=== PATIENT | female | born 1945 | race Two or more races ===

== ENCOUNTER 2020-11-30 11:41 | Outpatient (REF) | payer MEDICARE, SELFPAY ==
--- NOTE | ~2020-11-30 | MM_ITS ---
EXAMINATION: MM SCREENING DIGITAL BREAST TOMOSYNTHESIS, BILATERAL CLINICAL INFORMATION: Screening. Asymptomatic. The lifetime risk of breast cancer based on the Tyrer-Cuzick Model is 3%. COMPARISON: Mammography: 06/16/2019, 05/28/2018, 03/28/2017 TECHNIQUE: Digital breast tomosynthesis is performed in both the craniocaudal and mediolateral oblique views along with computer-aided detection (CAD). Synthesized 2D images are generated from the tomosynthesis. FINDINGS: The breasts are almost entirely fatty (ACR BI-RADS breast composition Category a). There are no significant masses, abnormal calcifications, or other abnormalities. Background fibroglandular and stromal densities are stable. The axilla and skin contours are unremarkable. MM/MM tomosynthesis screening BI IMPRESSION: No mammographic evidence of malignancy. ASSESSMENT: BI-RADS 1: Negative RECOMMENDATION: Routine annual mammography screening. This patient's information was entered into a reminder system with a target due date for their next mammogram.
== END 2020-11-30 11:42 | disposition home or self-care (01) ==
LOC: HO.MAMMO 11:41
PROVIDERS: PCP Internal Medicine; Visit Provider Internal Medicine
DX: Z12.31 Encounter for screening mammogram for malignant neoplasm of breast (principal)
CPT/HCPCS: 77063; 77067

== ENCOUNTER 2021-01-20 08:14 | Outpatient (REF) | payer MEDICARE, SELFPAY ==
[2021-01-20 08:50] LABS: COVID-19 Test Negative (Negative)
== END 2021-01-20 08:15 | disposition home or self-care (01) ==
LOC: HO.LAB 08:14
PROVIDERS: Visit Provider Internal Medicine
DX: Z20.822 Contact with and (suspected) exposure to COVID-19 (principal)
CPT/HCPCS: 36415; 87635; C9803

== ENCOUNTER 2021-01-26 10:24 | Outpatient (REF) | payer MEDICARE, SELFPAY ==
--- NOTE | ~2021-01-26 | US_ITS ---
EXAMINATION: US RETROPERITONEAL LIMITED (RENAL ONLY) CLINICAL INFORMATION: Renal calculi. COMPARISON: Ultrasound renals 01/13/2020 and 01/07/2019. X-ray KUB 10/02/2012. CT abdomen 08/21/2008. TECHNIQUE: Real-time imaging of the kidneys. FINDINGS: RIGHT KIDNEY: 11.0 x 3.6 x 3.2 cm (SAG x AP x TRV). The kidney is normal in size, contour, and echogenicity. Renal cortical thickness is normal. No calculi or focal parenchymal lesions. No hydronephrosis. LEFT KIDNEY: 10.9 x 4.8 x 4.2 cm (SAG x AP x TRV). The kidney is normal in size, contour, and echogenicity. Renal cortical thickness is normal. No calculi or focal parenchymal lesions. No hydronephrosis. US/US renal BI IMPRESSION: Unremarkable exam. No stone seen.
== END 2021-01-26 10:25 | disposition home or self-care (01) ==
LOC: HO.US 10:24
PROVIDERS: PCP Internal Medicine; Visit Provider Urology
DX: Z87.442 Personal history of urinary calculi (principal)
CPT/HCPCS: 76775

== ENCOUNTER → 2021-02-11 08:42 | Outpatient (BNVA) | payer MEDICARE, SELFPAY | PROVIDERS: PCP Internal Medicine; Visit Provider Urology | DX: Z13.89 Encounter for screening for other disorder (principal) | CPT/HCPCS: 99212 ==

== ENCOUNTER 2021-05-24 11:17 | Outpatient (REF) | payer MEDICARE, SELFPAY ==
[2021-05-24 12:24] LABS: MANUAL DIFF FLAG NO
[2021-05-24 12:34] LABS: Basophils Percent Auto 0.3 % (0-2); Eosinophils Absolute Auto 0.3 X10*3/uL (0.0-0.4); Eosinophils Percent Auto 4.5 % (0-4); Hemoglobin 12.8 g/dl (12.0-16.0); Imm Gran Pct Auto 1.3 % (0.0-0.4); Lymphocytes Absolute Auto 1.3 X10*3/uL (1.2-4.9); Mean Corpuscular HGB Conc 32.8 g/dl (31.0-35.0); Mean Corpuscular Hemoglobin 29.3 pg (27.0-33.0); Mean Corpuscular Volume 89.2 fL (80-98); Mean Platelet Volume 9.2 fL (9.4-12.3); Monocytes Absolute Auto 0.5 X10*3/uL (0.1-1.2); Monocytes Percent Auto 6.4 % (2-11); Neutrophils Absolute Auto 5.3 X10*3/uL (2.0-8.3); Neutrophils Percent Auto 70.5 % (45-73); Platelet Count 230 X10*3/uL (160-400); Red Blood Count 4.37 X10*6/uL (4.20-5.50); Red Cell Distribution Width 13.2 % (11.0-16.0); White Blood Count 7.6 X10*3/uL (4.8-10.8)
[2021-05-24 12:42] LABS: Alanine Aminotransferase 26 U/L (0-31); Albumin Level 4.1 g/dL (3.5-5.0); Alkaline Phosphatase 69 U/L (39-117); Anion Gap 13 (12-20); Aspartate Amino Transferase 16 U/L (5-31); Bilirubin Total 0.5 mg/dL (0.0-1.0); Blood Urea Nitrogen 17 mg/dL (9-16); Calcium 9.6 mg/dL (8.4-10.2); Carbon Dioxide 29 mmol/L (22-29); Chloride 103 mmol/L (96-108); Cholesterol 242 mg/dL; Estimated Glomerular Filt Rate > 60; Glucose Random 106 mg/dL (60-115); HDL Cholesterol 68 mg/dL; LDL Cholesterol Calculated 120 mg/dl; Potassium 4.6 mmol/L (3.3-5.1); Sodium 140 mmol/L (135-145); Total Protein 6.6 g/dL (6.5-8.0); Triglycerides 274 mg/dL
[2021-05-24 13:06] LABS: Free T4 (Free Thyroxine) 0.97 ng/dL (0.71-1.85); Thyroid Stimulating Hormone 0.76 uIU/mL (0.32-4.0); Vitamin D 25-OH Total 43.7 ng/mL (>30)
[2021-05-24 13:15] LABS: Folate 14.3 ng/mL (> or = 4.0); Vitamin B12 849 pg/mL (200-900)
[2021-05-24 13:33] LABS: Estimated Average Glucose 131 mg/dL; Hemoglobin A1c % 6.2 %
== END 2021-05-24 11:18 | disposition home or self-care (01) ==
LOC: HO.LAB 11:17
PROVIDERS: PCP Internal Medicine; Visit Provider Internal Medicine
DX: E78.00 Pure hypercholesterolemia, unspecified (principal); R73.01 Impaired fasting glucose; I10 Essential (primary) hypertension
CPT/HCPCS: 36415; 80053; 80061; 82306; 82607; 82746; 83036; 84439; 84443; 85025

== ENCOUNTER 2021-07-06 09:51 | Outpatient (REF) | payer MEDICARE, SELFPAY ==
--- NOTE | ~2021-07-06 | MM_ITS ---
EXAMINATION: BONE DENSITOMETRY CLINICAL INDICATION: Other specified disorders of bone density and structure. COMPARISON: Previous BD dated 04/17/2017 and baseline BD dated 09/14/2005. TECHNIQUE: Using a [employer] DXA System (software version: 13.1) manufactured by [employer], dual-energy x-ray absorptiometry was performed of the lumbar spine and left hip. The images are of good technical quality. Summary results are attached. FINDINGS: AP SPINE L1-L4: Current: BMD 1.086 g/cm2, Z-score 0.2, T-score -0.8, normal, 11.7% increase from previous, 7.4% increase from baseline (<5% change is not significant). Prior: BMD 0.972 g/cm2. Baseline: BMD 1.011 g/cm2. LEFT FEMUR, NECK: Current: BMD 0.797 g/cm2, Z-score -0.3, T-score -1.7, osteopenia. Prior: BMD 0.762 g/cm2. Baseline: BMD 0.830 g/cm2. LEFT FEMUR, TOTAL: Current: BMD 0.908 g/cm2, Z-score 0.4, T-score -0.8, normal, 1.5% increase from previous, 3.1% decrease from baseline (<5% change is not significant). Prior: BMD 0.895 g/cm2. Baseline: BMD 0.937 g/cm2. IDENTIFIED RISK FACTORS: Menopause, family history (parental hip fracture). HISTORY OF FRACTURE: None listed. MEDICATIONS: Calcium supplements or multivitamin, vitamin D, bisphosphonates. MM/XR DEXA axial skeleton IMPRESSION: 1. DIAGNOSIS: Osteopenia based on the lowest T-score value of -1.7 in the femoral neck applying World Health Organization criteria. 2. 10-YEAR FRACTURE RISK PREDICTION, FRAX: Major osteoporotic fracture (clinical spine, forearm, hip or shoulder) 10.8%. Hip fracture 5.2%. 3. Treatment Recommendations: NOF guidelines recommend consideration for treatment in postmenopausal women and men age 50 and older presenting with the following: -A hip or vertebral (clinical or morphometric) fracture. -T-score less than or equal to -2.5 at the femoral neck or spine after appropriate evaluation to exclude secondary causes. -Low bone mass at the hip or spine and a 10-year fracture probability by FRAX of greater than or equal to 3% for hip fracture or greater than or equal to 20% for major osteoporotic fracture based on the [place] adapted WHO algorithm. 4. Other Recommendations: All treatment decisions require clinical judgment and consideration of individual patient factors, including patient preferences, comorbidities, previous drug use, risk factors not captured in the FRAX model (e.g. frailty, falls, vitamin D deficiency, increased bone turnover, interval significant decline in bone density) and possible under or overestimation of fracture risk by FRAX. Additional medical evaluation for secondary cause of low bone mineral density may be appropriate. FUTURE SCAN RECOMMENDATION: People with diagnosed cases of osteoporosis or at high risk for fracture should have regular bone mineral density tests. For patients eligible for Medicare, routine testing is allowed once every 2 years. The testing frequency can be increased to one year for patients who have rapidly progressing disease, those who are receiving or discontinuing medical therapy to restore bone mass, or have additional risk factors.
--- NOTE | ~2021-07-06 | XR_ITS ---
EXAMINATION: XR SHOULDER, RIGHT CLINICAL INFORMATION: Right shoulder pain COMPARISON: Radiographs 04/21/2020 TECHNIQUE: AP external rotation, Grashey, scapular Y, and axillary views of the right shoulder. FINDINGS: Small osteophyte at the inferomedial humeral head and neck junction and minimal degenerative spurring along the greater tuberosity. The humeral head appears slightly subluxed. No Fracture. Subacromial spurring. Mild acromioclavicular osteoarthritis. XR/XR shoulder RT min 2V IMPRESSION: Degenerative changes as described with slight superior subluxation of the humeral head which may indicate a rotator cuff tear. This could be further evaluated with MRI if indicated.
== END 2021-07-06 09:52 | disposition home or self-care (01) ==
LOC: HO.MAMMO 09:51
PROVIDERS: PCP Internal Medicine; Visit Provider Internal Medicine
DX: Z13.820 Encounter for screening for osteoporosis (principal); M85.80 Other specified disorders of bone density and structure, unspecified site; M25.511 Pain in right shoulder; Z78.0 Asymptomatic menopausal state; Z87.81 Personal history of (healed) traumatic fracture; Z79.899 Other long term (current) drug therapy
CPT/HCPCS: 73030; 77080

== ENCOUNTER 2021-07-12 16:28 | Emergency (ER) | payer MEDICARE, SELFPAY ==
[2021-07-12 16:44] VITALS: BP 137/58; PULSE 79; RESP 16; TEMP 36.1; O2SAT 97; BMI 35.3
--- NOTE | 2021-07-12 17:04 | ED_ITS ---
HPI - Skin/Abscess/Foreign Bdy General Chief complaint: Skin/Abscess/Foreign Body Stated complaint: rash for approx 3 months Time Seen by Provider: 07/12/21 16:51 Source: patient Mode of arrival: ambulatory Limitations: language barrier ([place]izen [place]-speaking) History of Present Illness HPI narrative: 76-year-old Female presenting to the ED with complaints of itchy rash on her arms/back and lower extremities since February. She reports she has been seen multiple times for this by multiple different providers including a wide area network engineer in already completed 2-3 courses of p.o. prednisone, she has also been prescribed topical antifungal and topical steroids and no improvement per the patient. She is also taking sertraline and hydroxyzine and no symptomatic relief. She reports that her symptoms are worse at night. She reports that she lives with her son he does not have this similar rash. She reports this is not bedbugs that she cleaned her bed with even Lysol. She reports she even had this when she was in [place] for 3 weeks and no one else had it. She reports she no longer wants to take any p.o. steroids because they made her face swell. She denies any new substances such as medications, shampoos, lotions, body washes, foods or even detergents. She denies any pets in her home. She denies any other symptoms complaints or concerns at this time. complaint: rash Onset (ago): month(s) Tetanus up to date: unsure Location: back, LUE, RUE, LLE and RLE Severity: severe Quality: constant and pruritic Pain Consistency: constant Relieving factors: none Exacerbating factors: other (At nighttime) Context: none Associated symptoms: denies other symptoms Treatments prior to arrival: other (See above) Related Data Home Medications Medication Instructions Recorded Confirmed amitriptyline 50 mg tablet 50 mg PO BEDTIME 07/26/20 05/20/21 citalopram 20 mg tablet 20 mg PO DAILY 02/11/21 05/20/21 clonazepam 1 mg tablet 1 mg PO BID PRN 02/11/21 05/20/21 Previous Rx's Medication Instructions Recorded compress.stocking,knee,reg,lrg #2 ea 07/26/20 Poise PAds [id number] #180 ea 11/18/20 gabapentin 300 mg capsule 300 mg PO BID #60 cap 11/26/20 cholecalciferol (vitamin D3) 125 125 mcg PO DAILY #30 tab 12/02/20 mcg (5,000 unit) tablet (Vitamin D3) alendronate 70 mg tablet 70 mg PO QWEEK #12 tab 12/22/20 lisinopril 20 mg tablet 20 mg PO DAILY #90 tab 12/22/20 rosuvastatin 20 mg tablet 20 mg PO DAILY #90 tab 12/22/20 cyanocobalamin (vitamin B-12) 1,000 mcg PO DAILY 90 Days #90 tab 02/11/21 1,000 mcg tablet hydroxyzine HCl 25 mg tablet 25 mg PO TID PRN 10 Days #30 tab 04/15/21 triamcinolone acetonide 0.1 % 1 appl TOPICAL DAILY PRN #80 g 04/15/21 topical cream diphenhydramine HCl 25 mg capsule 25 mg PO TID PRN 15 Days #45 cap 06/02/21 (Benadryl) acetaminophen 650 mg 650 mg PO Q8H 30 Days #90 tab 06/13/21 tablet,extended release (Tylenol Arthritis Pain) cephalexin 500 mg capsule 500 mg PO Q6H 10 Days #40 cap 07/12/21 doxycycline monohydrate 100 mg 100 mg PO BID 10 Days #20 cap 07/12/21 capsule hydroxyzine HCl 50 mg tablet 50 mg PO Q8H PRN #30 tab 07/12/21 mupirocin 2 % topical ointment 1 appl TOPICAL TID #22 g 07/12/21 Allergies Allergy/AdvReac Type Severity Reaction Status Date / Time Penicillins [PENICILLINS] Allergy Unknown RASH,ITCHY Verified 05/20/21 09:58 Review of Systems Review of Systems: Constitutional : No Fever, No Chills , no body aches, no recent illness Head/Face: No facial swelling, No facial redness ENT/Mouth : No oral/throat swelling, No Hoarseness, No Swallowing Difficulty Eyes: No Eye Pain, No Swelling, No Redness Cardiovascular : No Chest Pain, No SOB, No palpitations Respiratory : No Cough, No Sputum, No Wheezing, No Smoke Exposure, No Dyspnea Gastrointestinal : No Nausea, No Vomiting, No Diarrhea, No abdominal Pain Genitourinary : No Dysuria, No Urinary Frequency, No Hematuria Musculoskeletal : No joint pain, No Myalgias, No Joint Swelling Skin : No Skin Lesions, positive rash Neuro : No Weakness, No Numbness, No Headache, No dizziness, No tingling Psych : No Anxiety/Panic, No Depression Heme/Lymph: No Bruising, No Lymphadenopathy Endocrine : No Polyuria, No Polydipsia Denies changes in lotions or detergents. Denies new medications or any changes in medications. Denies drainage from rash. Denies any recent sick contacts or recent travel. Yes all other systems are reviewed and are negative [facility] Past Medical History Attestation statement: The following information was validated with the patient. Medical History Anxiety and depression Carpal tunnel syndrome Cataract Fibromyalgia GERD (gastroesophageal reflux disease) Gout History of renal calculi Hypercholesterolemia Hypertension Impaired fasting glucose Migraine Obesity (BMI 30-39.9) Osteoarthritis, knee Osteoporosis Peripheral vascular disease Rash Seborrheic dermatitis of scalp Surgical History History of carpal tunnel release History of cataract surgery Family History Family History Father CVD (cardiovascular disease) Stroke Mother Diabetes Hypertension Maternal Aunt Breast cancer Brother Intestinal cancer Social History Social History Housing: Apartment Alcohol intake: never Patient Tobacco Use Status: Never used Tobacco e-Cigarette/Vaping Use: Never Used Second Hand Smoke Exposure: No Advance Directives: No Advance Directives Information Provided: Yes service: No Current occupational status: disabled Physical Exam Vital Signs: Vital Signs: Last Vital Signs Temp 97.0 F 07/12/21 16:44 Pulse 79 07/12/21 16:44 Resp 16 07/12/21 16:44 BP 137/58 L 07/12/21 16:44 Pulse Ox 97 07/12/21 16:44 Body Mass Index 35.3 vital signs have been reviewed as normal and appeared to be correct. Blood pressure normal. Heart rate normal. Respiration rate normal. Temperature normal. Oxygen saturation normal. Appearance: Alert. Oriented X3. No acute distress. Head: Normal external exam. Normocephalic. Eyes: PERRLA. EOMI. Conjunctiva and sclera normal. Eyelids normal. ENT: Pharynx normal. Uvula midline. Moist mucous membranes. No trismus noted. No drooling noted. No muffled voice noted. Neck: Normal inspection. Neck supple. FROM. No adenopathy. No meningeal signs. CVS: Normal heart rate and rhythm. Heart sound normal. No murmurs noted. Pulses normal throughout. Respiratory: No respiratory distress. Painless inspiration. Breath sounds normal. No wheezes/rales/rhonchi noted. Chest nontender. No accessory muscle usage noted or decreased air movement noted. Abdomen: Soft and nontender. Nondistended. No guarding. No rigidity. Bowel sounds normal in all 4 quadrants. No distention noted. No organomegaly noted. No visible injury noted. No rebound tenderness. Negative Rovsing sign. N egative obturator's sign. Negative psoas sign. Negative Arias sign. Back: No CVA tenderness. Full range of motion noted. Skin: Skin warm and dry. Normal skin color. Normal skin turgor. Patient noted to have macular papular inflammatory pustules/papules on the bilateral arms/back and lower extremities which appears like it started like a contact dermatitis but now appears like a folliculitis. No lacerations noted. Extremities: Extremities exhibit normal range of motion. Extremities nontender. Neuro: Oriented X 3. No motor deficit. No sensory deficit. Reflexes normal. Normal steady gait. Course Course Course Narrative: 76-year-old Female presenting to the ED with complaints of itchy rash on her arms/back and lower extremities since February. She reports she has been seen multiple times for this by multiple different providers including a wide area network engineer in already completed 2-3 courses of p.o. prednisone, she has also been prescribed topical antifungal and topical steroids and no improvement per the patient. She is also taking sertraline and hydroxyzine and no symptomatic relief. She reports that her symptoms are worse at night. She reports that she lives with her son he does not have this similar rash. She reports this is not bedbugs that she cleaned her bed with even Lysol. She reports she even had this when she was in [place] for 3 weeks and no one else had it. She reports she no longer wants to take any p.o. steroids because they made her face swell. She denies any new substances such as medications, shampoos, lotions, body washes, foods or even detergents. She denies any pets in her home. She denies any other symptoms complaints or concerns at this time. On exam it appears that the patient started with a contact dermatitis and it now appears to be superimposed with folliculitis due to the patient's scratching so much. I explained to her that I will try mupirocin and p.o. antibiotics to treat for possible folliculitis. Will also DC home with Atarax and instructions return if any new or worsening symptoms to follow up with PCP/wide area network engineer. Patient understands and agrees with this plan. MDM - Skin/Abscess/Foreign Bdy Medical Records Attestation: I reviewed the patient's medical records. Discharge Plan Discharge Clinical Impression: Contact dermatitis, Folliculitis Patient Disposition: Home, Self-Care Instructions: Contact Dermatitis (ED), Folliculitis (ED) Prescriptions: New mupirocin 2 % ointment 1 appl topical TID Qty: 22 RF: 3 doxycycline monohydrate 100 mg capsule 100 mg PO BID 10 Days Qty: 20 RF: 0 cephalexin 500 mg capsule 500 mg PO Q6H 10 Days Qty: 40 RF: 0 hydroxyzine HCl 50 mg tablet 50 mg PO Q8H PRN (Reason: itching) Qty: 30 RF: 0 No Action gabapentin 300 mg capsule 300 mg PO BID Qty: 60 RF: 5 cholecalciferol (vitamin D3) [Vitamin D3] 125 mcg (5,000 unit) tablet 125 mcg PO DAILY Qty: 30 RF: 11 lisinopril 20 mg tablet 20 mg PO DAILY Qty: 90 RF: 2 rosuvastatin 20 mg tablet 20 mg PO DAILY Qty: 90 RF: 2 alendronate 70 mg tablet 70 mg PO QWEEK Qty: 12 RF: 2 cyanocobalamin (vitamin B-12) 1,000 mcg tablet 1,000 mcg PO DAILY 90 Days Qty: 90 RF: 2 diphenhydramine HCl [Benadryl] 25 mg capsule 25 mg PO TID PRN (Reason: allergy symptoms) 15 Days Qty: 45 RF: 1 acetaminophen [Tylenol Arthritis Pain] 650 mg tablet extended release 650 mg PO Q8H 30 Days Qty: 90 RF: 2 amitriptyline 50 mg tablet 50 mg PO BEDTIME RF: 0 (DME) compress.stocking,knee,reg,lrg Misc See Rx Instructions .ROUTE .MEDSUPPLY Qty: 2 RF: 0 (DME) Poise PAds [id number] See Rx Instructions .Route .MEDSUPPLY Qty: 180 RF: 3 hydroxyzine HCl 25 mg tablet 25 mg PO TID PRN (Reason: itching) 10 Days Qty: 30 RF: 0 triamcinolone acetonide 0.1 % cream 1 appl topical DAILY PRN (Reason: itching) Qty: 80 RF: 0 citalopram 20 mg tablet 20 mg PO DAILY RF: 0 clonazepam 1 mg tablet 1 mg PO BID PRNRF: 0 Referrals: Po,Fiorella Farmer MD [Physician] - 2 days Print Language: Citizen [place]
== END 2021-07-12 17:58 | disposition home or self-care (01) ==
PROVIDERS: Emergency Provider Internal Medicine
DX: L25.9 Unspecified contact dermatitis, unspecified cause (principal); L73.9 Follicular disorder, unspecified; I10 Essential (primary) hypertension; E78.00 Pure hypercholesterolemia, unspecified
CPT/HCPCS: 99283

== ENCOUNTER 2021-09-20 08:14 | Outpatient (REF) | payer MEDICARE, SELFPAY | END 2021-09-20 08:15 | disposition home or self-care (01) | LOC: HO.HMGCLDS 08:14 | PROVIDERS: Visit Provider Internal Medicine | DX: Z20.822 Contact with and (suspected) exposure to COVID-19 (principal) | CPT/HCPCS: C9803; U0003; U0005 ==

== ENCOUNTER → 2021-10-13 10:51 | Outpatient (BNVA) | payer MEDICARE, SELFPAY | PROVIDERS: PCP Internal Medicine; Visit Provider Physician Assistant | DX: M12.811 Other specific arthropathies, not elsewhere classified, right shoulder (principal); M12.812 Other specific arthropathies, not elsewhere classified, left shoulder | CPT/HCPCS: 99202 ==

== ENCOUNTER 2021-11-04 10:00 | Outpatient (RCR) | payer MEDICARE, SELFPAY ==
[2021-09-30 11:08] VITALS: BP 161/74; PULSE 75
--- NOTE | 2021-09-30 11:59 | MHC.PT.EP ---
[facility] [place] Office [place] Office [place] [facility] [address] [phone] F: [phone] F: [phone] F: [phone] F: [phone] Physical Therapy Plan of Care Date of Evaluation: Date of Surgery: NA Diagnosis: Unspecified subluxation of R shoulder joint, initial encounter Assessment: Trina is a 76 year old female who is referred to PT for Unspecified subluxation of R shoulder, initial encounter . Pt reports of having insidious onset of shoulder pain about a year back. She denies any trauma or falls. On PT examination she presents with TTP over B shoulder joint line, 8/10 pain in R shoulder with movements, decreased shoulder ROM, altered GH rhythm, decreased shoulder and scap muscle strength, and altered posture. Due to these impairments she has difficulty with ADLS requiring her to reach over head and sleeping on R side. Her daughter who is her MEDICAL BILL PROCESSOR is currently assisting her with ADLS. She would benefit from skilled PT to address the aforementioned impairments and improve tolerance to functional activities. Frequency and Duration: The patient will be seen 2/week for 5 weeks Short Term Goals: 1. Pt will have 50% decrease in pain which will enable her to sleep through the night in 2 weeks. 2. Pt will be able to move her shoulder to 90 degrees of flexion and abduction with a pain no more than 2/10 which will enable her to dress her upper body independently in 3 weeks. Snf Goals: 1. Pt will demonstrate an increase in muscle strength by 1 grade which will enable her to carrying grocery in 4 weeks. 2. Pt will be independent with HEP for symptom management and maintenance following d/c in 5 weeks. Treatment Plan: Modalities to reduce pain, spasms and effusion. Manual therapy to restore motion and function. Therapeutic exercise to improve strength and flexibility. Neuromuscular re-education for posture and balance. Therapeutic activities to return to functional activities of daily living. Electronically signed by: Chetna Paez PT DPT Please sign and return to therapist. Thank you for your referral.
== END 2021-11-04 10:42 | disposition home or self-care (01) ==
LOC: HO.PT 10:00
PROVIDERS: PCP Internal Medicine; Visit Provider Internal Medicine
DX: S43.001D Unspecified subluxation of right shoulder joint, subsequent encounter (principal)
CPT/HCPCS: 97110; 97150; 97162; 97530

== ENCOUNTER 2021-11-15 09:52 | Outpatient (REF) | payer MEDICARE, SELFPAY ==
[2021-11-15 11:11] LABS: Alanine Aminotransferase 17 U/L (0-31); Albumin Level 4.3 g/dL (3.5-5.0); Alkaline Phosphatase 66 U/L (39-117); Anion Gap 12 (12-20); Aspartate Amino Transferase 18 U/L (5-31); Bilirubin Total 0.4 mg/dL (0.0-1.0); Blood Urea Nitrogen 24 mg/dL (9-16); Calcium 9.9 mg/dL (8.4-10.2); Carbon Dioxide 30 mmol/L (22-29); Chloride 104 mmol/L (96-108); Cholesterol 193 mg/dL; Estimated Glomerular Filt Rate 55; Glucose Random 118 mg/dL (60-115); HDL Cholesterol 63 mg/dL; LDL Cholesterol Calculated 102 mg/dl; Potassium 4.6 mmol/L (3.3-5.1); Sodium 141 mmol/L (135-145); Total Protein 7.1 g/dL (6.5-8.0); Triglycerides 141 mg/dL
[2021-11-15 11:16] LABS: Estimated Average Glucose 128 mg/dL; Hemoglobin A1c % 6.1 %
== END 2021-11-15 09:53 | disposition home or self-care (01) ==
LOC: HO.LAB 09:52
PROVIDERS: PCP Internal Medicine; Visit Provider Internal Medicine
DX: E78.00 Pure hypercholesterolemia, unspecified (principal); R73.01 Impaired fasting glucose
CPT/HCPCS: 36415; 80053; 80061; 83036

== ENCOUNTER 2021-11-24 09:32 | Outpatient (REF) | payer MEDICARE, SELFPAY ==
--- NOTE | ~2021-11-24 | MR_ITS ---
EXAMINATION: MR SHOULDER WITHOUT CONTRAST, RIGHT CLINICAL INFORMATION: Right shoulder pain and decreased range of motion. COMPARISON: Most recent right shoulder radiographs dated 07/06/2021. TECHNIQUE: MRI of the shoulder without contrast was performed on a high-field scanner. FINDINGS: Evaluation is limited secondary to patient motion. ROTATOR CUFF: Complete full-thickness tears of the supraspinatus and infraspinatus tendons with retraction of the tendon fibers proximal to the glenohumeral articulation. Severe subscapularis tendinosis with near-complete full-thickness tearing measuring over 3 cm in ML dimension with a few bursal surface tendon fibers remaining intact. The teres minor tendon is intact. Moderate supraspinatus, infraspinatus, and teres minor muscle atrophy. BICEPS: Severe thickening and abnormal signal throughout the proximal long head biceps tendon with flattening and medial subluxation as it drapes over the lesser tuberosity, consistent with severe tendinosis and longitudinal partial tearing. CORACOACROMIAL ARCH: The undersurface of the acromion is curved and attenuated with bony remodeling consistent with chronic superior humeral head subluxation. Moderate acromioclavicular osteoarthritis. LABRUM/CAPSULE: Mild degenerative signal within the superior labrum without displaced tearing. GLENOHUMERAL JOINT/MARROW: Glenoid articular cartilage signal heterogeneity with superior humeral head articular cartilage loss measuring up to 0.6 cm in ML dimension. Small marginal osteophytes. Chronic superior subluxation of the humeral head related to the rotator cuff tendon tears. Large joint effusion with synovitis. MR/MR shoulder RT wo con IMPRESSION: 1. Complete, full-thickness tears of the supraspinatus and infraspinatus tendons with retraction of the tendon fibers proximal to the glenohumeral articulation. Near-complete full-thickness tear of the subscapularis tendon with a few bursal surface tendon fibers remaining intact. Moderate supraspinatus, infraspinatus, and teres minor muscle atrophy. 2. Severe proximal long head biceps tendinosis with longitudinal partial tearing and medial subluxation as it drapes over the lesser tuberosity. 3. Chronic superior subluxation of the humeral head related to the rotator cuff tendon tears with bony remodeling of the acromial undersurface. Moderate acromioclavicular osteoarthritis. 4. Mild glenohumeral osteoarthritis. Large joint effusion with synovitis. 5. Mild degenerative signal within the superior labrum without displaced tearing.
--- NOTE | ~2021-11-24 | MR_ITS ---
EXAMINATION: MR SHOULDER WITHOUT CONTRAST, LEFT CLINICAL INFORMATION: Left shoulder pain and decreased range of motion. COMPARISON: Left shoulder radiographs dated 04/21/2020. TECHNIQUE: Multisequence MR imaging of the left shoulder was obtained without contrast on a high-field strength scanner. FINDINGS: Evaluation limited secondary to patient motion. ROTATOR CUFF: Complete, full-thickness tears of the supraspinatus and infraspinatus tendons with retraction of the torn tendon fibers to the level of the glenohumeral articulation measuring up to 4.7 cm in ML dimension. The torn tendon fibers are diffusely thickened and irregular. Severe subacromial tendinosis with near-complete distal partial tearing measuring 3.7 cm in ML dimension. There are a few bursal surface tendon fibers which remain intact. The teres minor tendon is intact. Mild supraspinatus, infraspinatus, and teres minor muscle atrophy. BICEPS: Flattening of the proximal long head biceps tendon with medial subluxation as it drapes over the lesser tuberosity, consistent with longitudinal partial tearing. No full-thickness transverse tendon defect or tendon retraction. CORACOACROMIAL ARCH: The undersurface of the acromion is flat with no subacromial spur. Moderate acromioclavicular osteoarthritis. LABRUM/CAPSULE: Degenerative signal within the superior labrum without a displaced labral tear. GLENOHUMERAL JOINT/MARROW: Superior subluxation of the humeral head related to the rotator cuff tendon tear. Mild superior humeral head articular cartilage signal heterogeneity and surface irregularity. Large joint effusion with synovitis. MR/MR shoulder LT wo con IMPRESSION: 1. Complete, full-thickness tears of the supraspinatus and infraspinatus tendons with the torn tendon fibers retracted to the level of the glenohumeral articulation. Severe subacromial tendinosis with near-complete partial tearing measuring 3.7 cm in ML dimension. There appear to be a few bursal surface tendon fibers remaining intact. Mild supraspinatus, infraspinatus, and teres minor muscle atrophy. 2. Longitudinal partial tearing and medial subluxation of the proximal long head biceps tendon as it drapes over the lesser tuberosity. 3. Moderate acromioclavicular osteoarthritis. 4. Superior subluxation of the humeral head related to the rotator cuff tendon tears. Mild glenohumeral arthrosis. Large joint effusion with synovitis. 5. Degenerative signal within the superior labrum without a displaced labral tear.
== END 2021-11-24 09:33 | disposition home or self-care (01) ==
LOC: HO.MRI 09:32
PROVIDERS: Visit Provider Physician Assistant
DX: S46.002A Unspecified injury of muscle(s) and tendon(s) of the rotator cuff of left shoulder, initial encounter (principal); S46.001A Unspecified injury of muscle(s) and tendon(s) of the rotator cuff of right shoulder, initial encounter
CPT/HCPCS: 73221

== ENCOUNTER 2021-12-06 09:55 | Outpatient (REF) | payer MEDICARE, SELFPAY ==
--- NOTE | ~2021-12-06 | MM_ITS ---
EXAMINATION: MM SCREENING DIGITAL BREAST TOMOSYNTHESIS, BILATERAL CLINICAL INFORMATION: Screening. Asymptomatic. The lifetime risk of breast cancer based on the Tyrer-Cuzick Model is 2.9%. COMPARISON: Mammography: November 30, 2020 and studies dating back to March 03, 2014 TECHNIQUE: Digital breast tomosynthesis is performed in both the craniocaudal and mediolateral oblique views along with computer-aided detection (CAD). Synthesized 2D images are generated from the tomosynthesis. FINDINGS: The breasts are almost entirely fatty (ACR BI-RADS breast composition Category a). There are no significant masses, abnormal calcifications, or other abnormalities. MM/MM tomosynthesis screening BI IMPRESSION: There are no significant changes from prior study. ASSESSMENT: BI-RADS 1: Negative RECOMMENDATION: Routine annual mammography screening. This patient's information was entered into a reminder system with a target due date for their next mammogram.
== END 2021-12-06 09:56 | disposition home or self-care (01) ==
LOC: HO.MAMMO 09:55
PROVIDERS: PCP Internal Medicine; Visit Provider Internal Medicine
DX: Z12.31 Encounter for screening mammogram for malignant neoplasm of breast (principal)
CPT/HCPCS: 77063; 77067

== ENCOUNTER → 2021-12-15 10:57 | Outpatient (BNVA) | payer OTHER, SELFPAY | PROVIDERS: PCP Internal Medicine; Visit Provider Orthopaedic Surgery | DX: M12.811 Other specific arthropathies, not elsewhere classified, right shoulder (principal); M12.812 Other specific arthropathies, not elsewhere classified, left shoulder | CPT/HCPCS: 99212 ==

== ENCOUNTER 2022-01-26 10:39 | Outpatient (REF) | payer MEDICARE, SELFPAY ==
--- NOTE | ~2022-01-26 | US_ITS ---
EXAMINATION: US RETROPERITONEAL LIMITED (RENAL ONLY) CLINICAL INFORMATION: Personal history of urinary calculi. COMPARISON: Renal ultrasound 01/26/2021, 01/13/2020 and 01/07/2019. X-ray KUB 10/02/2012. TECHNIQUE: Real-time imaging of the kidneys. FINDINGS: RIGHT KIDNEY: 10.9 x 3.7 x 5.6 cm (SAG x AP x TRV). The kidney is normal in size, contour, and echogenicity. Renal cortical thickness is normal. No renal calculi or hydronephrosis. A 0.4 cm simple cyst is noted in the mid kidney anteriorly. Additional 0.5 cm simple cortical cyst is noted in the mid kidney anteriorly. There is a 1.7 x 0.8 x 0.7 cm peripelvic cyst in the mid to lower kidney; in retrospect the finding is stable compared to previous ultrasounds including ultrasound of 2019. LEFT KIDNEY: 11.2 x 4.4 x 4.7 cm (SAG x AP x TRV). The kidney is normal in size, contour, and echogenicity. Renal cortical thickness is normal. No calculi or focal parenchymal lesions. No hydronephrosis. ADDITIONAL FINDINGS: Increased echogenicity of the visualized liver parenchyma is noted consistent with steatosis. US/US renal BI IMPRESSION: No evidence of renal calculi or hydronephrosis. Right renal benign cysts; no further imaging follow-up of these cysts is warranted. Hepatic steatosis.
== END 2022-01-26 10:40 | disposition home or self-care (01) ==
LOC: HO.US 10:39
DX: Z87.442 Personal history of urinary calculi (principal)
CPT/HCPCS: 76775

== ENCOUNTER 2022-02-20 10:57 | Outpatient (REF) | payer MEDICARE, SELFPAY ==
[2022-02-20 16:46] LABS: Urine Cytology See Pathology rpt
== END 2022-02-20 10:58 | disposition home or self-care (01) ==
LOC: HO.LAB 10:57
PROVIDERS: PCP Internal Medicine
DX: R31.9 Hematuria, unspecified (principal); Z87.442 Personal history of urinary calculi
CPT/HCPCS: 88112; 99212

== ENCOUNTER 2022-08-08 12:42 | Outpatient (REF) | payer MEDICARE, SELFPAY ==
--- NOTE | ~2022-08-08 | US_ITS ---
EXAMINATION: US RETROPERITONEAL LIMITED (RENAL ONLY) CLINICAL INFORMATION: Personal history of urinary calculi. COMPARISON: Bilateral renal ultrasound dated 01/26/2022 and 01/26/2021. KUB dated 10/02/2012. CT abdomen without and with contrast dated 08/21/2008. TECHNIQUE: Real-time imaging of the kidneys. Limited visualization due to bowel gas and body habitus. FINDINGS: RIGHT KIDNEY: 11.8 x 3.2 x 4.4 cm (SAG x AP x TRV). Multiple renal cysts, largest medial mid pole 1.8 x 1.1 x 1.1 cm appears simple. No hydronephrosis. No renal calculi. LEFT KIDNEY: 10.9 x 4.5 x 4.6 cm (SAG x AP x TRV). Upper pole 0.5 x 0.5 x 0.4 cm cyst, cortical, likely simple. No hydronephrosis. No renal calculi. Limited visualization. US/US renal BI IMPRESSION: 1. Bilateral renal cysts, largest right kidney 1.8 cm appears simple. No further follow-up imaging indicated per ACR criteria. 2. No hydronephrosis. No renal calculi.
== END 2022-08-08 12:43 | disposition home or self-care (01) ==
LOC: HO.US 12:42
PROVIDERS: Visit Provider Urology
DX: Z87.442 Personal history of urinary calculi (principal)
CPT/HCPCS: 76775

== ENCOUNTER 2022-09-28 09:18 | Outpatient (REF) | payer MEDICARE, SELFPAY ==
[2022-09-28 17:27] LABS: Urine Cytology See Pathology rpt
== END 2022-09-28 09:19 | disposition home or self-care (01) ==
LOC: HO.LAB 09:18
PROVIDERS: PCP Internal Medicine; Visit Provider Nurse Practitioner Family
DX: R32 Unspecified urinary incontinence (principal); N28.1 Cyst of kidney, acquired; Z87.442 Personal history of urinary calculi
CPT/HCPCS: 51798; 88112; 99212

== ENCOUNTER 2022-10-02 20:28 | Emergency (ER) | payer MEDICARE, SELFPAY ==
[2022-10-02 20:48] VITALS: BP 181/85; PULSE 69; RESP 18; TEMP 36.6; O2SAT 98; BMI 34.3
[2022-10-02 22:00] VITALS: BP 204/93; PULSE 68; RESP 18; TEMP 36.6; O2SAT 97
[2022-10-02 22:14] LABS: MANUAL DIFF FLAG NO
[2022-10-02 22:15] LABS: Basophils Percent Auto 0.6 % (0-2); Eosinophils Absolute Auto 0.2 X10*3/uL (0.0-0.4); Hematocrit 37.4 % (37.0-47.0); Hemoglobin 12.4 g/dl (12.0-16.0); Imm Gran Abs Auto 0.03 X10*3/uL (0.00-0.03); Imm Gran Pct Auto 0.4 % (0.0-0.4); Lymphocytes Absolute Auto 2.3 X10*3/uL (1.2-4.9); Lymphocytes Percent Auto 33.2 % (20-40); Mean Corpuscular HGB Conc 33.2 g/dl (31.0-35.0); Mean Corpuscular Hemoglobin 28.6 pg (27.0-33.0); Mean Corpuscular Volume 86.2 fL (80.0-98.0); Mean Platelet Volume 9.1 fL (9.4-12.3); Monocytes Absolute Auto 0.5 X10*3/uL (0.1-1.2); Monocytes Percent Auto 6.5 % (2-11); Neutrophils Percent Auto 56.3 % (45-73); Platelet Count 228 X10*3/uL (160-400); Red Blood Count 4.34 X10*6/uL (4.20-5.50); Red Cell Distribution Width 12.6 % (11.0-16.0)
[2022-10-02 22:18] LABS: Appearance Urine Clear; Color Urine Yellow; Glucose Urine UA Negative (Negative); Leukocyte Esterase Urine Trace (Negative); Nitrite Urine Negative (Negative); PH 5.5 (5.0-9.0); UMIC TRIGGER UACC YES; Urine Blood Small (1+) (Negative); Urine Ketones Negative (Negative); Urine Protein Negative (Neg-Trace)
[2022-10-02 22:25] LABS: Bacteria Urine None Seen (None Seen); Hyaline Casts Urine 0-2 /LPF (0-2); RBC Urine 0-2 /HPF (0-2); Squamous Epithelial Cell Urine 0-2 /HPF (0-2); WBC Urine 0-5 /HPF (0-5)
--- NOTE | 2022-10-02 22:29 | ED_ITS ---
HPI - General Adult General Chief complaint: General Medical Stated complaint: high blood pressure 200/96 Time Seen by Provider: 10/02/22 22:17 Source: patient Mode of arrival: ambulatory Limitations: no limitations History of Present Illness HPI narrative: Patient comes to the emergency room complaining of high blood pressure. Patient states that she went to see her primary care physician today, she was informed that her blood pressure was high and to come to the emergency room. Patient is asymptomatic Related Data Home Medications Medication Instructions Recorded Confirmed amitriptyline 50 mg tablet 50 mg PO BEDTIME 07/26/20 10/02/22 citalopram 20 mg tablet 20 mg PO DAILY 02/11/21 10/02/22 clonazepam 1 mg tablet 1 mg PO BID PRN 02/11/21 10/02/22 cholecalciferol (vitamin D3) 125 125 mcg PO DAILY 02/20/22 10/02/22 mcg (5,000 unit) capsule Previous Rx's Medication Instructions Recorded compress.stocking,knee,reg,lrg #2 ea 07/26/20 Poise PAds [id number] #180 ea 11/18/20 gabapentin 300 mg capsule 300 mg PO BID #60 caps 11/26/20 hydroxyzine HCl 25 mg tablet 25 mg PO TID PRN itching 10 days 04/15/21 #30 tabs loratadine 10 mg tablet 10 mg PO DAILY 90 days #90 tabs 09/20/21 rosuvastatin 20 mg tablet 20 mg PO DAILY #90 tabs 09/20/21 alendronate 70 mg tablet 70 mg PO QWEEK #12 tabs 11/17/21 cyanocobalamin (vitamin B-12) 1,000 mcg PO DAILY 90 days #90 tabs 11/22/21 1,000 mcg tablet fluticasone propionate 50 2 spray intranasal DAILY #16 grams 04/11/22 mcg/actuation nasal spray,suspension (Flonase Allergy Relief) acetaminophen 650 mg 650 mg PO Q8H 30 days #90 tabs 05/15/22 tablet,extended release (Tylenol Arthritis Pain) lisinopril 20 mg tablet 20 mg PO DAILY #90 tabs 07/07/22 meloxicam 15 mg tablet 15 mg PO DAILY 90 days #90 tabs 07/07/22 lisinopril 40 mg tablet 40 mg PO DAILY #30 tabs 01/17/23 Allergies Allergy/AdvReac Type Severity Reaction Status Date / Time Penicillins [PENICILLINS] Allergy Unknown RASH,ITCHY Verified 10/02/22 11:13 Review of Systems Review of Systems: Constitutional : No Weight loss, No Fever, No Chills, No Night Sweats, No Fatigue, No Malaise ENT/Mouth : No Hearing loss, No Ear Pain, No Nasal Congestion, No Sinus Pain, No Hoarseness, No sore throat, No Rhinorrhea, No Swallowing Difficulty Eyes: No Eye Pain, No Swelling, No Redness, No Foreign Body, No Discharge, No Vision Changes Cardiovascular : No Chest Pain, No SOB, No Dyspnea on Exertion, No Orthopnea, No Edema, No Palpitations Respiratory : No Cough, No Sputum, No Wheezing, No Smoke Exposure, No Dyspnea Gastrointestinal : No Nausea, No Vomiting, No Diarrhea, No Constipation, No abdominal Pain, No Hematochezia, No Melena Genitourinary : no irregular bleeding, No Dysuria, No Urinary Frequency, No Hematuria, No Urinary Incontinence, No Urgency, No Flank Pain, No Urinary Flow Changes, No Hesitancy Musculoskeletal : No joint pain, No Myalgias, No Joint Swelling Skin : No Skin Lesions, No rash Neuro : No Weakness, No Numbness, No Paresthesias, No Loss of Consciousness, No Dizziness, No Headache Psych : No Anxiety/Panic, No Depression, No SI/HI/AH/VH, No Social Issues, Heme/Lymph: No Bruising, No Bleeding,No Lymphadenopathy Endocrine : No Polyuria, No Polydipsia, No Temperature Intolerance PMFSH Past Medical History Medical History Annual physical exam Anxiety and depression Bilateral hand numbness Carpal tunnel syndrome Cataract Eczematous dermatitis Fibromyalgia GERD (gastroesophageal reflux disease) Gout History of renal calculi Hypercholesterolemia Hypertension Impaired fasting glucose Migraine Obesity (BMI 30-39.9) Osteoarthritis, knee Osteoporosis Peripheral vascular disease Rotator cuff arthropathy of both shoulders Shoulder pain, bilateral Shoulder subluxation, right Subconjunctival hemorrhage of right eye Urinary incontinence Surgical History History of carpal tunnel release History of cataract surgery Family History Family History Father CVD (cardiovascular disease) Stroke Mother Diabetes Hypertension Maternal Aunt Breast cancer Brother Intestinal cancer Social History Social History Housing: Apartment Alcohol intake: never Patient Tobacco Use Status: Never used Tobacco e-Cigarette/Vaping Use: Never Used Second Hand Smoke Exposure: No Advance Directives: No service: No Current occupational status: disabled Current occupation: Rt handed Cognitive needs: No Hearing needs: No Vision needs: Yes Physical Exam ED Vital Signs: Vital Signs - 24 hr 10/02/22 20:48 10/02/22 22:00 10/02/22 23:52 Temperature 97.9 F 97.8 F Pulse Rate 69 68 Respiratory Rate 18 18 Blood Pressure 181/85 H 204/93 H 189/88 H Pulse Oximetry 98 97 Oxygen Delivery Method Room Air Room Air 10/03/22 00:42 Temperature Pulse Rate 65 Respiratory Rate Blood Pressure 160/68 H Pulse Oximetry Oxygen Delivery Method BMI result Body Mass Index 34.3 Const Other: Appearance: Alert. Oriented X3. No acute distress. Eyes: Pupils equal, round and reactive to light. ENT: Pharynx normal. Neck: Normal inspection. Neck supple. No lymph nodes noted. No crepitus CVS: Normal heart rate and rhythm. Pulses normal. Normal S1 and S2 Respiratory: No respiratory distress. Breath sounds normal. No Wheezing. No rales Abdomen: Soft and nontender. No rigidity. No distention. Skin: Skin warm and dry. Normal skin color. Normal skin turgor. Extremities: No lower extremity edema. No Lacerations. No Rash Neuro: Oriented X 3. No motor deficit. No sensory deficit. Moving all extremities. No slurred speech. CN 2 through 12 grossly intact Psych: calm, cooperative, normal affect Course Course Course Narrative: -patient is asymptomatic, denies chest pain, shortness of breath, no visual changes, blood pressure 204/93. Takes lisinopril 20 mg daily regularly -EKG and troponin pending. -patient given 1 dose of p.o. labetalol and we will reassess After 1 dose of p.o. labetalol, blood pressure 199/88, heart rate 68, patient will be given another dose of labetalol Medications Administered Discontinued Medications Generic Name Dose Route Start Last Admin Trade Name Freq PRN Reason Stop Dose Admin Labetalol HCl 100 mg 10/02/22 22:27 10/02/22 22:34 Labetalol Hcl 100 Mg Tablet PO 10/02/22 22:28 100 mg ONCE ONE Administration Protocol Medical Decision Making Medical Decision Making [facility] Narrative: -patient received 100 mg of p.o. labetalol, blood pressure 160/68, heart rate 65. -discussed with the patient to increase lisinopril to 40 mg. Eventually, patient may need a 2nd medication. Differential Diagnosis Differential Diagnoses: The differential diagnosis associated with the pre sentation includes (Hypertension, hypertensive urgency) Lab Data [facility] Lab Attestation statement: I reviewed the patient's lab results. 10/02/22 22:09 10/02/22 22:09 Labs: Lab Results 10/02/22 10/02/22 10/02/22 Range/Units 22:06 22:09 22:09 WBC 7.0 (4.8-10.8) X10*3/uL RBC 4.34 (4.20-5.50) X10*6/uL Hgb 12.4 (12.0-16.0) g/dl Hct 37.4 (37.0-47.0) % MCV 86.2 (80.0-98.0) fL MCH 28.6 (27.0-33.0) pg MCHC 33.2 (31.0-35.0) g/dl RDW 12.6 (11.0-16.0) % Plt Count 228 (160-400) X10*3/uL MPV 9.1 L (9.4-12.3) fL Immature Gran % (Auto) 0.4 (0.0-0.4) % Neut % (Auto) 56.3 (45-73) % Lymph % (Auto) 33.2 (20-40) % Brule % (Auto) 6.5 (2-11) % Eos % (Auto) 3.0 (0-4) % Baso % (Auto) 0.6 (0-2) % Lymph # (Auto) 2.3 (1.2-4.9) X10*3/uL Brule # (Auto) 0.5 (0.1-1.2) X10*3/uL Eos # (Auto) 0.2 (0.0-0.4) X10*3/uL Baso # (Auto) 0.0 (0.0-0.2) X10*3/uL Abs Immat Gran (auto) 0.03 (0.00-0.03) X10*3/uL Absolute Neuts (auto) 4.0 (2.0-8.3) x10*3/uL Absolute Nucleated RBC 0.000 (0.0-0.012) X10*3/uL Nucleated RBC % (auto) 0.0 (0.0-0.2) /100WBC Sodium 137 (135-145) mmol/L Potassium 4.2 (3.3-5.1) mmol/L Chloride 101 (96-108) mmol/L Carbon Dioxide 28 (22-29) mmol/L Anion Gap 12 (12-20) BUN 17 H (9-16) mg/dL Creatinine 0.80 (0.5-1.4) mg/dL Estim Creat Clear Calc 63.9 Estimated GFR > 60 Random Glucose 110 (60-115) mg/dL Calcium 9.2 D (8.4-10.2) mg/dL Troponin I High Sens (<3.5-17.0) ng/L B-Natriuretic Peptide (<100) pg/mL Urine Color Yellow Urine Appearance Clear Urine pH 5.5 (5.0-9.0) Ur Specific [place] 1.010 (1.005-1.025) Urine Protein Negative (Neg-Trace) mg/dL Urine Glucose (UA) Negative (Negative) mg/dL Urine Ketones Negative (Negative) mg/dL Urine Blood Small (1+) H (Negative) Urine Nitrite Negative (Negative) Ur Leukocyte Esterase Trace H (Negative) Urine RBC 0-2 (0-2) /HPF Urine WBC 0-5 (0-5) /HPF Ur Squamous Epith Cells 0-2 (0-2) /HPF Urine Bacteria None Seen (None Seen) Hyaline Casts 0-2 (0-2) /LPF 10/02/22 10/02/22 Range/Units 22:09 23:45 WBC (4.8-10.8) X10*3/uL RBC (4.20-5.50) X10*6/uL Hgb (12.0-16.0) g/dl Hct (37.0-47.0) % MCV (80.0-98.0) fL MCH (27.0-33.0) pg MCHC (31.0-35.0) g/dl RDW (11.0-16.0) % Plt Count (160-400) X10*3/uL MPV (9.4-12.3) fL Immature Gran % (Auto) (0.0-0.4) % Neut % (Auto) (45-73) % Lymph % (Auto) (20-40) % Brule % (Auto) (2-11) % Eos % (Auto) (0-4) % Baso % (Auto) (0-2) % Lymph # (Auto) (1.2-4.9) X10*3/uL Brule # (Auto) (0.1-1.2) X10*3/uL Eos # (Auto) (0.0-0.4) X10*3/uL Baso # (Auto) (0.0-0.2) X10*3/uL Abs Immat Gran (auto) (0.00-0.03) X10*3/uL Absolute Neuts (auto) (2.0-8.3) x10*3/uL Absolute Nucleated RBC (0.0-0.012) X10*3/uL Nucleated RBC % (auto) (0.0-0.2) /100WBC Sodium (135-145) mmol/L Potassium (3.3-5.1) mmol/L Chloride (96-108) mmol/L Carbon Dioxide (22-29) mmol/L Anion Gap (12-20) BUN (9-16) mg/dL Creatinine (0.5-1.4) mg/dL Estim Creat Clear Calc Estimated GFR Random Glucose (60-115) mg/dL Calcium (8.4-10.2) mg/dL Troponin I High Sens < 3.5 (<3.5-17.0) ng/L B-Natriuretic Peptide 18 (<100) pg/mL Urine Color Urine Appearance Urine pH (5.0-9.0) Ur Specific [place] (1.005-1.025) Urine Protein (Neg-Trace) mg/dL Urine Glucose (UA) (Negative) mg/dL Urine Ketones (Negative) mg/dL Urine Blood (Negative) Urine Nitrite (Negative) Ur Leukocyte Esterase (Negative) Urine RBC (0-2) /HPF Urine WBC (0-5) /HPF Ur Squamous Epith Cells (0-2) /HPF Urine Bacteria (None Seen) Hyaline Casts (0-2) /LPF Independent Interpretation I performed an independent interpretation of an: EKG (My interpretation: Sinus rhythm, heart rate 66, no ST segment depression or elevation, nonspecific T-wave inversion in V3 with no reciprocal changes, QTC 461) Discharge Plan Discharge Clinical Impression: Hypertension Patient Disposition: Home, Self-Care Instructions: Hypertension (ED) Additional Instructions: Please follow-up with your primary care physician tomorrow. If you have any worsening or new symptoms, please return to the emergency room or call 911 Prescriptions: New lisinopril 40 mg tablet 40 mg PO DAILY Qty: 30 0RF No Action gabapentin 300 mg capsule 300 mg PO BID Qty: 60 5RF rosuvastatin 20 mg tablet 20 mg PO DAILY Qty: 90 2RF alendronate 70 mg tablet 70 mg PO QWEEK Qty: 12 2RF fluticasone propionate [Flonase Allergy Relief] 50 mcg/actuation spray,suspension 2 spray intranasal DAILY Qty: 16 5RF Rx Instructions: administer into each nostril acetaminophen [Tylenol Arthritis Pain] 650 mg tablet extended release 650 mg PO Q8H 30 Days Qty: 90 2RF lisinopril 20 mg tablet 20 mg PO DAILY Qty: 90 2RF meloxicam 15 mg tablet 15 mg PO DAILY 90 Days Qty: 90 1RF amitriptyline 50 mg tablet 50 mg PO BEDTIME (DME) compress.stocking,knee,reg,lrg Misc See Rx Instructions .ROUTE .MEDSUPPLY Qty: 2 0RF Rx Instructions: As directed loratadine 10 mg tablet 10 mg PO DAILY 90 Days Qty: 90 3RF (DME) Poise PAds [id number] See Rx Instructions .Route .MEDSUPPLY Qty: 180 3RF Rx Instructions: As directed hydroxyzine HCl 25 mg tablet 25 mg PO TID PRN (Reason: itching) 10 Days Qty: 30 0RF cyanocobalamin (vitamin B-12) 1,000 mcg tablet 1,000 mcg PO DAILY 90 Days Qty: 90 2RF cholecalciferol (vitamin D3) 125 mcg (5,000 unit) capsule 125 mcg PO DAILY citalopram 20 mg tablet 20 mg PO DAILY clonazepam 1 mg tablet 1 mg PO BID PRN
[2022-10-02 22:33] LABS: Anion Gap 12 (12-20); Blood Urea Nitrogen 17 mg/dL (9-16); Calcium 9.2 mg/dL (8.4-10.2); Carbon Dioxide 28 mmol/L (22-29); Chloride 101 mmol/L (96-108); Creatinine Clr Calc Pharmacy 63.9; Estimated Glomerular Filt Rate > 60; Glucose Random 110 mg/dL (60-115); Potassium 4.2 mmol/L (3.3-5.1); Sodium 137 mmol/L (135-145)
[2022-10-02] MEDS: Labetalol HCL 100 MG TABLET PO (22:34)
[2022-10-02 23:20] LABS: B Type Natriuretic Peptide 18 pg/mL (<100)
[2022-10-02 23:52] VITALS: BP 189/88
--- NOTE | 2022-10-02 23:57 | ECG_ITS ---
Test Reason : cp Blood Pressure : / mmHG Vent. Rate : 066 BPM Atrial Rate : 066 BPM P-R Int : 110 ms QRS Dur : 084 ms QT Int : 440 ms P-R-T Axes : 036 001 034 degrees QTc Int : 461 ms Sinus rhythm with short [place] Nonspecific T wave abnormality Abnormal ECG When compared with ECG of 24-JAN-2016 10:21, T wave inversion now evident in Anterior leads Referred By: Judy Sharpe Electronically Signed By:LOY RODRIGUEZ MD
[2022-10-03 00:25] LABS: Troponin-I High Sensitivity < 3.5 ng/L (<3.5-17.0)
[2022-10-03 00:42] VITALS: BP 160/68; PULSE 65
== END 2022-10-03 01:36 | disposition home or self-care (01) ==
PROVIDERS: Emergency Provider Emergency Medicine; PCP Internal Medicine
DX: I10 Essential (primary) hypertension (principal); E11.9 Type 2 diabetes mellitus without complications; E78.00 Pure hypercholesterolemia, unspecified; E66.9 Obesity, unspecified; Z68.34 Body mass index [BMI] 34.0-34.9, adult; Z79.899 Other long term (current) drug therapy; Z79.02 Long term (current) use of antithrombotics/antiplatelets
CPT/HCPCS: 36415; 80048; 81001; 83880; 84484; 85025; 93005; 99283; 99284

== ENCOUNTER 2022-11-16 10:20 | Outpatient (REF) | payer OTHER, SELFPAY ==
--- NOTE | ~2022-11-16 | XR_ITS ---
EXAMINATION: XR KNEE, RIGHT CLINICAL INFORMATION: Pain. COMPARISON: Radiographs dated 11/12/2013. TECHNIQUE: AP and lateral views of the right knee. FINDINGS: There is bony demineralization. There is marked narrowing of the medial joint space compartment. The lateral joint space compartment is well-maintained. There is moderate narrowing of the patellofemoral compartment. There is tricompartment peripheral osteophyte formation. There is a varus configuration. No fracture or dislocation is seen. A small loose body is again question anteriorly within the medial joint space compartment. There is a small to moderate right knee joint effusion. No foreign body is seen. There are anterior soft tissue calcifications of the lower leg. XR/XR knee RT 2V IMPRESSION: 1. There is tricompartment osteoarthritic change of the right knee, most pronounced of the lateral joint space compartment, where it is marked. 2. There is a varus configuration of the right knee. 3. No fracture or dislocation is seen. 4. There is a small to moderate right knee joint effusion. 5. A small loose body is again questioned.
== END 2022-11-16 10:21 | disposition home or self-care (01) ==
LOC: HO.XRAY 10:20
PROVIDERS: PCP Internal Medicine; Visit Provider Internal Medicine
DX: M25.561 Pain in right knee (principal)
CPT/HCPCS: 73560

== ENCOUNTER 2022-12-04 09:37 | Outpatient (REF) | payer OTHER, SELFPAY ==
[2022-12-04 10:04] LABS: MANUAL DIFF FLAG NO
[2022-12-04 10:33] LABS: Basophils Percent Auto 0.6 % (0-2); Eosinophils Absolute Auto 0.2 X10*3/uL (0.0-0.4); Eosinophils Percent Auto 3.3 % (0-4); Hematocrit 36.9 % (37.0-47.0); Imm Gran Abs Auto 0.02 X10*3/uL (0.00-0.03); Imm Gran Pct Auto 0.4 % (0.0-0.4); Lymphocytes Absolute Auto 1.3 X10*3/uL (1.2-4.9); Lymphocytes Percent Auto 27.2 % (20-40); Mean Corpuscular HGB Conc 32.5 g/dl (31.0-35.0); Mean Corpuscular Volume 89.1 fL (80.0-98.0); Mean Platelet Volume 9.8 fL (9.4-12.3); Monocytes Absolute Auto 0.4 X10*3/uL (0.1-1.2); Neutrophils Absolute Auto 2.9 x10*3/uL (2.0-8.3); Neutrophils Percent Auto 60.5 % (45-73); Platelet Count 238 X10*3/uL (160-400); Red Blood Count 4.14 X10*6/uL (4.20-5.50); Red Cell Distribution Width 12.6 % (11.0-16.0); White Blood Count 4.9 X10*3/uL (4.8-10.8)
[2022-12-04 10:44] LABS: Estimated Average Glucose 131 mg/dL; Hemoglobin A1c % 6.2 %
[2022-12-04 11:41] LABS: Erythrocyte Sedimentation Rate 33 MM/HR (0-20)
[2022-12-04 12:01] LABS: Alanine Aminotransferase 19 U/L (0-31); Alkaline Phosphatase 66 U/L (39-117); Anion Gap 14 (12-20); Aspartate Amino Transferase 19 U/L (5-31); Bilirubin Total 0.3 mg/dL (0.0-1.0); Blood Urea Nitrogen 15 mg/dL (9-16); Calcium 9.3 mg/dL (8.4-10.2); Carbon Dioxide 31 mmol/L (22-29); Chloride 102 mmol/L (96-108); Cholesterol 217 mg/dL; Estimated Glomerular Filt Rate > 60; Glucose Random 116 mg/dL (60-115); HDL Cholesterol 48 mg/dL; LDL Cholesterol Calculated 114 mg/dl; Potassium 4.5 mmol/L (3.3-5.1); Sodium 142 mmol/L (135-145); Total Protein 6.7 g/dL (6.5-8.0); Triglycerides 278 mg/dL
[2022-12-04 12:18] LABS: Free T4 (Free Thyroxine) 0.84 ng/dL (0.71-1.85); Thyroid Stimulating Hormone 1.23 uIU/mL (0.32-4.0); Vitamin B12 1349 pg/mL (200-900); Vitamin D 25-OH Total 54.7 ng/mL (>30)
== END 2022-12-04 09:38 | disposition home or self-care (01) ==
LOC: HO.LAB 09:37
PROVIDERS: PCP Internal Medicine; Visit Provider Internal Medicine
DX: M25.561 Pain in right knee (principal); R73.01 Impaired fasting glucose; E78.00 Pure hypercholesterolemia, unspecified; M81.0 Age-related osteoporosis without current pathological fracture; E55.9 Vitamin D deficiency, unspecified
CPT/HCPCS: 36415; 80053; 80061; 82306; 82607; 82746; 83036; 84439; 84443; 85025; 85652

== ENCOUNTER 2022-12-07 14:17 | Outpatient (REF) | payer OTHER, SELFPAY ==
[2022-12-07 15:51] LABS: INTERNATIONAL NORM RATIO 0.9 (0.9-1.1); Prothrombin Time 10.4 SEC (10.0-13.1)
== END 2022-12-07 14:18 | disposition home or self-care (01) ==
LOC: HO.LAB 14:17
PROVIDERS: PCP Internal Medicine; Visit Provider Nurse Practitioner Family
DX: Z01.812 Encounter for preprocedural laboratory examination (principal)
CPT/HCPCS: 36415; 85610

== ENCOUNTER 2022-12-21 10:30 | Emergency (ER) | payer OTHER, SELFPAY ==
--- NOTE | ~2022-12-21 | XR_ITS ---
EXAMINATION: XR ABDOMEN KUB CLINICAL INDICATION: Constipation COMPARISON: CT scan of August 21, 2008 TECHNIQUE: AP view of the abdomen. FINDINGS: No dilated loops of large or small bowel are evident. There is a moderate stool burden present most prominent within the descending and sigmoid colon as well as the rectum. No pneumatosis intestinalis. Psoas margins are intact. There is multilevel degenerative change within the lumbar spine. There is mild scoliosis of the lumbar spine convex left. Sacroiliac joints unremarkable. Hip joint spaces maintained. Radiopaque density seen overlying the left iliac bone is seen on prior CT to represent metallic foreign body within the subcutaneous tissues. XR/XR KUB IMPRESSION: No evidence of ileus or obstruction. Moderate colonic stool burden.
[2022-12-21 10:46] VITALS: BP 140/80; PULSE 95; O2SAT 99
[2022-12-21 10:47] VITALS: BP 132/56; PULSE 87; RESP 18; TEMP 36.6; O2SAT 93
[2022-12-21 10:51] VITALS: BP 132/56; PULSE 87; RESP 18; TEMP 36.6; O2SAT 93; BMI 32.8
--- NOTE | 2022-12-21 11:03 | PC.NURSE ---
Pt found lying in bed semi-fowlers, airway open and patent, no obvious signs of distress, no difficulty breathing. 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 Lung sounds clr and equal bilaterally. Heart sounds normal. Skin normal for ethnicity, warm, and dry. Bowel sounds present all rios, abdomen soft, pt reports pressure upon palpation. No edema noted. Surgery incision on right shoulder appears healthy- no redness/swelling. Pt reports that she has been constipated since the surgery and now having abdominal pressure and pt also reports that her butthole is very painful 9/10 pain. Pt reports having one small BM this morning. Pt aware of plan of care.
--- NOTE | 2022-12-21 11:09 | ED_ITS ---
HPI - General Adult General Chief complaint: Abdominal Pain Stated complaint: CONSTIPATION SINCE SURG DAYS AGO PER EMS Time Seen by Provider: 12/21/22 10:49 History of Present Illness HPI narrative: 77-year-old female with past medical history of rotator cuff injury, osteopenia, GERD, hypertension, hypercholesteremia, migraine headaches, impaired fasting glucose is here today complaining of constipation. Patient had right shoulder surgery last Sunday and has not been able to move her bowels since. Patient is taking MiraLax and docusate sodium twice a day and unable to move her bowels. Patient tried to strain this morning and have a very small bowel movement, reports rectal discomfort. Denies any abdominal pain or discomfort. Denies any diarrhea. Patient denies CP, SOB with or without exertion, presyncope, syncope. Patient denies any nausea or vomiting. Denies any urinary frequency, hesitancy, incontinence, burning or pain. Denies melena, hematochezia, unintentional weight loss or ribbon like stools. Patient denies any dyspepsia, dysphagia or odynophagia. Patient states that she had colonoscopy in the past several years ago polyps found. Patient denies any history of abdominal surgeries Onset (ago): day(s) Related Data Home Medications Medication Instructions Recorded Confirmed amitriptyline 50 mg tablet 50 mg PO BEDTIME 07/26/20 10/02/22 citalopram 20 mg tablet 20 mg PO DAILY 02/11/21 10/02/22 clonazepam 1 mg tablet 1 mg PO BID PRN 02/11/21 10/02/22 Previous Rx's Medication Instructions Recorded compress.stocking,knee,reg,lrg #2 ea 07/26/20 Poise PAds [id number] #180 ea 11/18/20 gabapentin 300 mg capsule 300 mg PO BID #60 caps 11/26/20 hydroxyzine HCl 25 mg tablet 25 mg PO TID PRN itching 10 days 04/15/21 #30 tabs loratadine 10 mg tablet 10 mg PO DAILY 90 days #90 tabs 09/20/21 rosuvastatin 20 mg tablet 20 mg PO DAILY #90 tabs 09/20/21 alendronate 70 mg tablet 70 mg PO QWEEK #12 tabs 11/17/21 fluticasone propionate 50 2 spray intranasal DAILY #16 grams 04/11/22 mcg/actuation nasal spray,suspension (Flonase Allergy Relief) acetaminophen 650 mg 650 mg PO Q8H 30 days #90 tabs 05/15/22 tablet,extended release (Tylenol Arthritis Pain) lisinopril 40 mg tablet 40 mg PO DAILY #30 tabs 11/03/22 cholecalciferol (vitamin D3) 125 125 mcg PO DAILY #90 caps 12/06/22 mcg (5,000 unit) capsule cyanocobalamin (vitamin B-12) 1,000 mcg PO DAILY 90 days #90 tabs 12/06/22 1,000 mcg tablet docusate sodium 100 mg capsule 200 mg PO DAILY #30 caps 12/21/22 sennosides 8.6 mg capsule (senna) 17.2 mg PO BEDTIME #30 caps 12/21/22 Allergies Allergy/AdvReac Type Severity Reaction Status Date / Time Penicillins [PENICILLINS] Allergy Unknown RASH,ITCHY Verified 12/07/22 13:34 hydrochlorothiazide AdvReac Intermediate dizzy Verified 12/07/22 13:34 Review of Systems Review of Systems: Constitutional : No Weight loss, No Fever, No Chills, No Night Sweats, No Fatigue, No Malaise ENT/Mouth : No Hearing loss, No Ear Pain, No Nasal Congestion, No Sinus Pain, No Hoarseness, No sore throat, No Rhinorrhea, No Swallowing Difficulty Eyes: No Eye Pain, No Swelling, No Redness, No Foreign Body, No Discharge, No Vision Changes Cardiovascular : No Chest Pain, No SOB, No Dyspnea on Exertion, No Orthopnea, No Edema, No Palpitations Respiratory : No Cough, No Sputum, No Wheezing, No Smoke Exposure, No Dyspnea Gastrointestinal : No Nausea, No Vomiting, No Diarrhea, Constipation, No abdominal Pain, No Hematochezia, No Melena Genitourinary : no irregular bleeding, No Dysuria, No Urinary Frequency, No Hematuria, No Urinary Incontinence, No Urgency, No Flank Pain, No Urinary Flow Changes, No Hesitancy Musculoskeletal : No joint pain, No Myalgias, No Joint Swelling Skin : No Skin Lesions, No rash, Neuro : No Weakness, No Numbness, No Paresthesias, No Loss of Consciousness, No Dizziness, No Headache Psych : No Anxiety/Panic, No Depression, No SI/HI/AH/VH, No Social Issues, Heme/Lymph: No Bruising, No Bleeding,No Lymphadenopathy Endocrine : No Polyuria, No Polydipsia, No Temperature Intolerance [facility] Past Medical History Medical History Annual physical exam Anxiety and depression Bilateral hand numbness Carpal tunnel syndrome Cataract Eczematous dermatitis Fibromyalgia GERD (gastroesophageal reflux disease) Gout History of renal calculi Hypercholesterolemia Hypertension Impaired fasting glucose Migraine Obesity (BMI 30-39.9) Osteoarthritis, knee Osteoporosis Peripheral vascular disease Rotator cuff arthropathy of both shoulders Shoulder pain, bilateral Shoulder subluxation, right Subconjunctival hemorrhage of right eye Urinary incontinence Surgical History History of carpal tunnel release History of cataract surgery Family History Family History Father CVD (cardiovascular disease) Stroke Mother Diabetes Hypertension Maternal Aunt Breast cancer Brother Intestinal cancer Social History Social History Housing: Apartment Alcohol intake: never Patient Tobacco Use Status: Never used Tobacco Smoked in Last 30 Days: No e-Cigarette/Vaping Use: Never Used Second Hand Smoke Exposure: No Use of substances other than those prescribed or required for medical reasons: No Advance Directives: No Advance Directives Information Provided: No service: No Current occupational status: disabled Current occupation: Rt handed Cognitive needs: No Hearing needs: No Vision needs: Yes Physical Exam ED Vital Signs: Vital Signs - 24 hr 12/21/22 10:51 12/21/22 10:47 12/21/22 13:10 Temperature 97.9 F 97.9 F 98.7 F Pulse Rate 87 87 87 Respiratory Rate 18 18 18 Blood Pressure 132/56 L 132/56 L 145/66 H Pulse Oximetry 93 93 98 Oxygen Delivery Method Room Air Room Air Room Air 12/21/22 14:21 Temperature 98.0 F Pulse Rate 88 Respiratory Rate 20 Blood Pressure 119/57 L Pulse Oximetry 94 Oxygen Delivery Method Room Air BMI result Body Mass Index 32.8 Const Other: Appearance: Alert. Oriented X3. No acute distress. ? Head: Normal external exam. Normocephalic. Atraumatic.? No Smith signs noted. No raccoon eyes noted Eyes: PERRLA. EOMI. Conjunctiva and sclera normal. Eyelids normal. ? ENT: EAC normal. TM's Normal. Pharynx normal. Uvula midline. Moist mucous membranes. ? No trismus noted.? No drooling noted.? No muffled voice noted. Neck: Normal inspection. Neck supple. FROM. No adenopathy. Thyroid Normal. No meningeal signs. No neck mass noted. CVS: Normal heart rate and rhythm. Heart sound normal. No murmurs noted. Pulses normal throughout. Respiratory: No respiratory distress. Painless inspiration. Breath sounds normal. No wheezes/rales/rhonchi noted. Chest nontender. ? No accessory muscle usage noted or decreased air movement noted. Abdomen: Soft and nontender. Bowel sounds normal in all 4 quadrants. No distention noted.? No organomegaly noted.? No visible injury noted. Back: ?No CVA tenderness.? Full range of motion noted. Skin: Skin warm and dry.? Normal skin color.? Normal skin turgor. No rashes/lesions/noted.surgical scar with Steri-Strips all intact to right shoulder Extremities: No lower extremity edema. ? Right upper extremity sling status post surgery to right shoulder.? Extremities nontender. Neuro: Oriented X 3.? No motor deficit.? No sensory deficit.? Reflexes normal. Course Course Course Narrative: 77-year-old female with past medical history of rotator cuff injury, osteopenia, GERD, hypertension, hypercholesteremia, migraine headaches, impaired fasting glucose is here today complaining of constipation. Patient had right shoulder surgery last Sunday and has not been able to move her bowels since. Patient is taking MiraLax and docusate sodium twice a day and unable to move her bowels. Patient tried to strain this morning and have a very small bowel movement, reports rectal discomfort. Denies any abdominal pain or discomfort. Denies any diarrhea. Patient denies CP, SOB with or without exertion, presyncope, syncope. Patient denies any nausea or vomiting. Denies any urinary frequency, hesitancy, incontinence, burning or pain. Denies melena, hematochezia, unintentional weight loss or ribbon like stools. Patient denies any dyspepsia, dysphagia or odynophagia. Patient states that she had colonoscopy in the past several years ago polyps found. Patient denies any history of abdominal surgeries. Will order urinalysis, KUB, MOM, senna Reevaluation(s) Reevaluation #1: KUB shows large amount of stool in the distal and sigmoid colon as well as in the rectum. Will order Fleet enema now. No obstruction or ileus. Patient denies any abdominal pain. No nausea or vomiting. Unable to move her bowels yet. Reevaluation #2: Good bowel movement after Fleet enema. Patient will be sent home with script for Senokot. She will follow-up with PCP. Will send her to be evaluated by GI for management of constipation/bowel motility Medications Administered Discontinued Medications Generic Name Dose Route Start Last Admin Trade Name Freq PRN Reason Stop Dose Admin Magnesium Hydroxide 30 ml 12/21/22 11:19 12/21/22 12:06 Milk Of Magnesia 30 Ml Oral.Susp PO 12/21/22 11:20 30 ml ONCE ONE Administration Senna 17.2 mg 12/21/22 11:23 12/21/22 12:06 Sennosides 8.6 Mg Tablet PO 12/21/22 11:24 17.2 mg ONCE ONE Administration Sodium Biphosphate/Sodium Phosphate 133 ml 12/21/22 15:20 12/21/22 17:20 Sodium Phosphate,[place]-Dibasic 133 Ml Enema SD 12/21/22 15:21 133 ml ONCE ONE Administration Medical Decision Making Medical Decision Making MDM Narrative: 77-year-old female with past medical history of rotator cuff injury, osteopenia, GERD, hypertension, hypercholesteremia, migraine headaches, impaired fasting glucose is here today complaining of constipation. Patient had right shoulder surgery last Sunday and has not been able to move her bowels since. Patient has been taking oxycodone for pain. Patient is taking MiraLax and docusate sodium twice a day and unable to move her bowels. Patient tried to strain this morning and have a very small bowel movement, reports rectal discomfort. Denies any abdominal pain or discomfort. Denies any diarrhea. Patient denies CP, SOB with or without exertion, presyncope, syncope. Patient denies any nausea or vomiting. Denies any urinary frequency, hesitancy, incontinence, burning or pain. Denies melena, hematochezia, unintentional weight loss or ribbon like stools. Patient denies any dyspepsia, dysphagia or odynophagia. Patient states that she had colonoscopy in the past several years ago polyps found. Patient denies any history of abdominal surgeries. Physical examination essentially negative. Patient does not have any abdominal pain, tenderness. Patient reports to have no urinary symptoms. Will obtain KUB, urine sample. Medicate patient with go magnesia and Senokot. Patient is hemodynamically stable. Differential Diagnosis Differential Diagnoses: The differential diagnosis associated with the presentation includes UTI, constipation, Lab Data MDM Lab Attestation statement: I reviewed the patient's lab results. Labs: Lab Results 12/21/22 Range/Units 13:31 Urine Color Yellow Urine Appearance Clear Urine pH 8.5 (5.0-9.0) Ur Specific Armstrong 1.020 (1.005-1.025) Urine Protein Trace (Neg-Trace) mg/dL Urine Glucose (UA) Negative (Negative) mg/dL Urine Ketones Negative (Negative) mg/dL Urine Blood Negative (Negative) Urine Nitrite Negative (Negative) Ur Leukocyte Esterase Negative (Negative) Radiology Impression Discussion of test interpretation with radiology: I have reviewed the radiologi st's reading. Radiologist Impression: FINDINGS: No dilated loops of large or small bowel are evident. There is a moderate stool burden present most prominent within the descending and sigmoid colon as well as the rectum. No pneumatosis intestinalis. Psoas margins are intact. There is multilevel degenerative change within the lumbar spine. There is mild scoliosis of the lumbar spine convex left. Sacroiliac joints unremarkable. Hip joint spaces maintained. Radiopaque density seen overlying the left iliac bone is seen on prior CT to represent metallic foreign body within the subcutaneous tissues. XR/XR KUB IMPRESSION: No evidence of ileus or obstruction. ? Moderate colonic stool burden. ? Discharge Plan Discharge Clinical Impression: Constipation Patient Disposition: Home, Self-Care Instructions: Constipation (ED) Additional Instructions: You were seen here today for severe constipation. X-ray of your abdomen did not show any acute processes. However it did confirm that you were constipated. You were given 2 different medications to help you move your bowels as well as enema. Please make sure that you take docusate sodium 100 mg 2 tablets with Senokot 8.6 mg 2 tablets every evening. Please follow-up with your primary care doctor. I am sending you to see GI specialist. You may return to emergency department if your will experience worsening symptoms or any new additional concerning symptoms. Usted fue visto aqu? hoy por estre?imiento sonia. La radiograf?a de garcia abdomen no mostr? kesha?n proceso victor hugo. Sin embargo, confirm? que estabas estre?abbi. Le dieron 2 medicamentos diferentes para ayudarlo a multifocal lens assembler jesús intestinos, as? luis un enema. Aseg?rese de collin 2 comprimidos de docusato de sodio de 100 mg con 2 comprimidos de Senokot de 8,6 mg todas las noches. Por favor, unique un seguimiento con garcia m?dico de atenci?n primaria. Te enviar? a alexander a un especialista en gastroenterolog?a. Puede regresar al departamento de emergencias si experimenta un empeoramiento de los s?ntomas o cualquier otro s?ntoma preocupante nuevo. Prescriptions: New docusate sodium 100 mg capsule 200 mg PO DAILY Qty: 30 0RF senna 8.6 mg capsule 17.2 mg PO BEDTIME Qty: 30 0RF No Action gabapentin 300 mg capsule 300 mg PO BID Qty: 60 5RF rosuvastatin 20 mg tablet 20 mg PO DAILY Qty: 90 2RF alendronate 70 mg tablet 70 mg PO QWEEK Qty: 12 2RF fluticasone propionate [Flonase Allergy Relief] 50 mcg/actuation spray,suspension 2 spray intranasal DAILY Qty: 16 5RF Rx Instructions: administer into each nostril acetaminophen [Tylenol Arthritis Pain] 650 mg tablet extended release 650 mg PO Q8H 30 Days Qty: 90 2RF lisinopril 40 mg tablet 40 mg PO DAILY Qty: 30 0RF cyanocobalamin (vitamin B-12) 1,000 mcg tablet 1,000 mcg PO DAILY 90 Days Qty: 90 2RF cholecalciferol (vitamin D3) 125 mcg (5,000 unit) capsule 125 mcg PO DAILY Qty: 90 0RF amitriptyline 50 mg tablet 50 mg PO BEDTIME (DME) compress.stocking,knee,reg,lrg Misc See Rx Instructions .ROUTE .MEDSUPPLY Qty: 2 0RF Rx Instructions: As directed loratadine 10 mg tablet 10 mg PO DAILY 90 Days Qty: 90 3RF (DME) Poise PAds [id number] See Rx Instructions .Route .MEDSUPPLY Qty: 180 3RF Rx Instructions: As directed hydroxyzine HCl 25 mg tablet 25 mg PO TID PRN (Reason: itching) 10 Days Qty: 30 0RF citalopram 20 mg tablet 20 mg PO DAILY clonazepam 1 mg tablet 1 mg PO BID PRN Referrals: Po,Fiorella Farmer MD [Primary Care Provider] - Alessandra Saravia MD [Physician] - (Severe constipation) Interventions: ED Discharge Assessment Last Done: 12/21/22 19:26 Discharge Date/Time: 12/21/22 19:27 Print Language: Luxembourgish
[2022-12-21] MEDS: Milk of Magnesia 30 ML ORAL.SUSP PO (12:06)
[2022-12-21] MEDS: Sennosides 8.6 MG TABLET 17.2 MG PO (12:06)
[2022-12-21 13:10] VITALS: BP 145/66; PULSE 87; RESP 18; TEMP 37.1; O2SAT 98
[2022-12-21 13:39] LABS: Appearance Urine Clear; Color Urine Yellow; Glucose Urine UA Negative (Negative); Leukocyte Esterase Urine Negative (Negative); Nitrite Urine Negative (Negative); PH 8.5 (5.0-9.0); Urine Blood Negative (Negative); Urine Ketones Negative (Negative); Urine Protein Trace mg/dL (Neg-Trace)
[2022-12-21 14:21] VITALS: BP 119/57; PULSE 88; RESP 20; TEMP 36.7; O2SAT 94
[2022-12-21 16:25] VITALS: BP 128/63; PULSE 94; RESP 16; TEMP 37.2; O2SAT 95
[2022-12-21] MEDS: Sodium Phosphate,Mono-Dibasic 133 ML ENEMA PR (17:20)
== END 2022-12-21 19:27 | disposition home or self-care (01) ==
PROVIDERS: Nurse Practitioner Family; Emergency Provider Emergency Medicine; PCP Internal Medicine
DX: K59.00 Constipation, unspecified (principal); R10.13 Epigastric pain; Z79.899 Other long term (current) drug therapy
CPT/HCPCS: 74018; 81003; 99284

== ENCOUNTER 2022-12-27 17:27 | Outpatient (REF) | payer OTHER, SELFPAY ==
[2022-12-27 17:37] LABS: Appearance Urine Cloudy; Color Urine Yellow; Glucose Urine UA Negative (Negative); Leukocyte Esterase Urine Moderate (2+) (Negative); Nitrite Urine Positive (Negative); Specific Gravity - Urine 1.025 (1.005-1.025); UMIC TRIGGER UACC YES; Urine Blood Moderate (2+) (Negative); Urine Ketones Trace mg/dL (Negative); Urine Protein Trace mg/dL (Neg-Trace)
[2022-12-27 17:46] LABS: Calcium Oxalate Crystals Urine Present
[2022-12-27 18:04] LABS: Bacteria Urine 4+ (None Seen); Hyaline Casts Urine 0-2 /LPF (0-2); UACC Culture Trigger YES; WBC Urine 21-50 /HPF (0-5)
== END 2022-12-27 17:28 | disposition home or self-care (01) ==
LOC: HO.LNP 17:27
PROVIDERS: Visit Provider Internal Medicine
DX: R39.9 Unspecified symptoms and signs involving the genitourinary system (principal)
CPT/HCPCS: 81001; 87086; 87088; 87186

== ENCOUNTER → 2023-01-09 13:14 | Outpatient (BNVA) | payer OTHER, SELFPAY | PROVIDERS: PCP Internal Medicine; Visit Provider Nurse Practitioner Family | DX: K59.03 Drug induced constipation (principal) | CPT/HCPCS: 99202 ==

== ENCOUNTER 2023-01-10 11:10 | Outpatient (REF) | payer OTHER, SELFPAY ==
[2023-01-10 12:42] LABS: Appearance Urine Cloudy; Color Urine Yellow; Glucose Urine UA Negative (Negative); Leukocyte Esterase Urine Large (3+) (Negative); Nitrite Urine Negative (Negative); PH 5.5 (5.0-9.0); UMIC TRIGGER UACC YES; Urine Blood Moderate (2+) (Negative); Urine Ketones Negative (Negative); Urine Protein Trace mg/dL (Neg-Trace)
[2023-01-10 13:00] LABS: Bacteria Urine 3+ (None Seen); Hyaline Casts Urine 0-2 /LPF (0-2); Squamous Epithelial Cell Urine 0-2 /HPF (0-2); UACC Culture Trigger YES; WBC Urine >50 /HPF (0-5)
== END 2023-01-10 11:11 | disposition home or self-care (01) ==
LOC: HO.LAB 11:10
PROVIDERS: PCP Internal Medicine; Visit Provider Internal Medicine
DX: R30.0 Dysuria (principal)
CPT/HCPCS: 81001; 87086; 87088; 87186

== ENCOUNTER 2023-04-20 10:53 | Outpatient (AMB) | payer OTHER, SELFPAY ==
[2023-04-20 11:04] VITALS: BP 140/68; PULSE 76; O2SAT 97; BMI 32.9
--- NOTE | 2023-04-20 11:04 | MHC.PC.OV ---
Vital Signs 04/20/23 11:04 Height 5 ft 3 in Weight 186 lb BMI 32.9 BP 140/68 H Blood Pressure Location Lt brachial Position Sitting Pulse 76 Pulse Source Pulse Oximeter Pulse Oximetry (%) 97 Oxygen Delivery Method Room Air Intake Visit Reasons: HTN, CHolesterol Allergies Penicillins [PENICILLINS] Allergy (Unknown, Verified 04/20/23 11:05) RASH,ITCHY hydrochlorothiazide Adverse Reaction (Intermediate, Verified 04/20/23 11:05) dizzy Tobacco use date assessed: 10/27/22 Fall risk assessment: No Falls in past year Last assessed Fall Risk: 04/20/23 Dental Screening Dental Screen Date: 04/20/23 Did you have a dental visit in the last 12 months?: Yes Did you have a dental problem in the last 6 months where you did not have access to dental care?: No Was dental information given to patient?: Patient has dentist HPI HTN, CHolesterol HPI Details 78-year-old obese female with GERD hypercholesterolemia impaired glucose tolerance generalized anxiety disorder last seen in December 2022 patient had rotator cough injury and had surgery November 2022 was on physical therapy patient is here for follow-up. Had some knee osteoarthritis and was prescribed diclofenac patient's colonoscopy is up-to-date mammogram is due bone density is due. Patient complains about the knee causing pain but would not like to have surgery done until the left shoulder has been fixed. Meanwhile using all sorts of topical for the knee. Otherwise discussed about impaired glucose tolerance and hypertension. Blood pressure is elevated this time advised to check it at home and record. For the blood sugar advised to retested again. Patient states has been recently in [place] for vacation but noted weight need not really go up. [facility] Medical History (Updated 02/20/23 @ 12:11 by Fiorella Coronel MD) Annual physical exam Anxiety and depression Bilateral hand numbness Carpal tunnel syndrome Cataract Eczematous dermatitis Fibromyalgia GERD (gastroesophageal reflux disease) Gout History of renal calculi Hypercholesterolemia Hypertension Impaired fasting glucose Knee pain, right Migraine Obesity (BMI 30-39.9) Osteoarthritis, knee Osteoporosis Peripheral vascular disease Rotator cuff arthropathy of both shoulders Shoulder pain, bilateral Shoulder subluxation, right Subconjunctival hemorrhage of right eye Urinary incontinence Surgical History History of carpal tunnel release History of cataract surgery Family History Father CVD (cardiovascular disease) Stroke Mother Diabetes Hypertension Maternal Aunt Breast cancer Brother Intestinal cancer Social History Housing: Apartment Alcohol intake: never Patient Tobacco Use Status: Never used Tobacco e-Cigarette/Vaping Use: Never Used Second Hand Smoke Exposure: No service: No Current occupational status: disabled Current occupation: Rt handed Cognitive needs: No Hearing needs: No Vision needs: Yes Questionnaire PHQ-9 Over the last 2 weeks, how often have you been bothered by any of the following problems? 1. Little interest or pleasure in doing things: not at all 2. Feeling down, depressed, or hopeless: several days 3. Trouble falling or staying asleep, or sleeping too much: not at all 4. Feeling tired or having little energy: not at all 5. Poor appetite or overeating: not at all 6. Feeling bad about yourself - or that you are a failure or have let yourself or your family down: not at all 7. Trouble concentrating on things, such as reading the newspaper or watching television: not at all 8. Moving or speaking so slowly that other people could have noticed. Or the opposite - being so fidgety or restless that you have been moving around a lot more than usual: not at all 9. Thoughts that you would be better off or of hurting yourself in some way: not at all Total score: 1 Depression Screening Interpretation: Negative Source: Developed by Drs. Christopher Lynne, Ron Knutson and colleagues, with an educational wicho from [employer]. Thrive Questionnaire Date Thrive assessed: 12/07/22 AUDIT C Alcohol Use Questionnaire (AUDIT-C) 1. How often do you have a drink containing alcohol?: Never 3. How often do you have six or more drinks on one occasion?: Never Total Score: 0 Score Reviewed/Action Taken: No WAGNER-7 AMB Questionnaire WAGNER-7 Date WAGNER - 7 assessed: 12/07/22 Source: Developed by Mera Green Kurt Kroenke and colleagues, with an educational wicho from [employer]. Physical exam (Primary Care) Vital Signs: Last Vital Signs Pulse 76 04/20/23 11:04 BP 140/68 H 04/20/23 11:04 Pulse Ox 97 04/20/23 11:04 Oxygen Delivery Method Room Air 04/20/23 11:04 BMI result Body Mass Index 32.9 Tobacco/Smoking Status: Tobacco use Status Tobacco use date assessed 10/27/22 04/20/23 11:07 Patient Tobacco Use Status Never used Tobacco 04/20/23 11:07 e-Cigarette/Vaping Use Never Used 04/20/23 11:07 PHQ-9: PHQ-9 Score PHQ-9: Total score 1 04/20/23 11:07 Depression Screening Interpretation: Negative Thrive Assessment: Date of Thrive Assessment Date Thrive assessed 12/07/22 04/20/23 11:07 Const General: alert; No acute distress Eyes Conjunctivae: conjunctivae normal Resp Auscultation: clear to auscultation bilaterally Cardio Rate: regular rate Rhythm: regular rhythm GI Inspection: Yes normal to inspection Extrem General: Yes normal to inspection and No edema Assessment and Plan Assessment & Plan (1) Osteoarthritis, knee: Comment: Right knee injection [facility] Code(s): M17.10 - Unilateral primary osteoarthritis, unspecified knee Plan: Keep active and follo up with ORtho (2) Generalized anxiety disorder: Comment: [facility] Code(s): F41.1 - Generalized anxiety disorder Plan: Continue with counseling and therapy (3) GERD (gastroesophageal reflux disease): Code(s): K21.9 - Gastro-esophageal reflux disease without esophagitis Qualifiers: Esophagitis presence: without esophagitis Qualified Code(s): K21.9 - Gastro-esophageal reflux disease without esophagitis Plan: Avoid the foods that causes that usually spicy foods, tomato products, juices, coffee, soda and foods that your sensitive to. After eating do not lie down, allow 3-4 hours before in lie down. And keep the head of bed above 30 degrees to avoid the acid from going up. (4) Hypertension: Code(s): I10 - Essential (primary) hypertension Plan: Continue with blood pressure medication. Decrease salt intake and exercise patient takes lisinopril 40 mg once a day. high today , advise to check BP at home and record (5) Hypercholesterolemia: Code(s): E78.00 - Pure hypercholesterolemia, unspecified Plan: Avoid fried foods, chicken skin, eggs, butter margarine, pastries and meat. Be it pork or beef they have a lot of cholesterol LDL goal of less than 130 and triglyceride of less than 150 (6) Impaired fasting glucose: Code(s): R73.01 - Impaired fasting glucose Plan: Decrease the amount of carbohydrate intake, pasta, bread, rice and potatoes are all sugar and that is aside from all the sweet stuff, remember that fruits are good but they are Sweet also. (7) Obesity (BMI 30-39.9): Code(s): E66.9 - Obesity, unspecified Plan: Diet and exercise (8) Osteopenia: Comment: June 2021 Code(s): M85.80 - Other specified disorders of bone density and structure, unspecified site Plan: Reminded about bone density Orders: Orders Vitamin B12 and Folate Today R73.01 - Impaired fasting glucose Comprehensive Met. Panel Today R73.01 - Impaired fasting glucose Hemoglobin A1c Today R73.01 - Impaired fasting glucose Lipid Panel Today E78.00 - Pure hypercholesterolemia, unspecified, R73.01 - Impaired fasting glucose Magnesium Today R73.01 - Impaired fasting glucose Free T4 (Free Thyroxine) Today R73.01 - Impaired fasting glucose Thyroid Stimulating Hormone Today R73.01 - Impaired fasting glucose Complete Blood Count Auto Diff Today R73.01 - Impaired fasting glucose XR DEXA axial skeleton Today M81.0 - Age-related osteoporosis without current pathological fracture, M85.80 - Other specified disorders of bone density and structure, unspecified site Coding Level of Care Code Est Pt Level 4 (70964) Diagnoses Osteoarthritis, knee M17.10 Generalized anxiety disorder F41.1 GERD (gastroesophageal reflux disease) K21.9 Esophagitis presence: without esophagitis Hypertension I10 Hypercholesterolemia E78.00 Impaired fasting glucose R73.01 Obesity (BMI 30-39.9) E66.9 Osteopenia M85.80 Additional Codes PHQ-9 - 65804 - PHQ-9 Billing: Y ([id number])
== END 2023-04-20 11:56 | disposition home or self-care (01) ==
PROVIDERS: PCP Internal Medicine; Visit Provider Internal Medicine
DX: M17.11 Unilateral primary osteoarthritis, right knee (principal); F41.1 Generalized anxiety disorder; K21.9 Gastro-esophageal reflux disease without esophagitis; I10 Essential (primary) hypertension; E78.00 Pure hypercholesterolemia, unspecified; R73.01 Impaired fasting glucose; E66.9 Obesity, unspecified; M85.80 Other specified disorders of bone density and structure, unspecified site
CPT/HCPCS: 99214

== ENCOUNTER 2023-07-04 13:44 | Outpatient (AMB) | payer OTHER, SELFPAY ==
--- NOTE | 2023-07-04 13:45 | A.OFFPC_ITS ---
Vital Signs 3 07/04/23 13:47 Height 5 ft 3 in Weight 186 lb BMI 32.9 BP 138/74 Blood Pressure Location Lt brachial Position Sitting Pulse 77 Pulse Source Pulse Oximeter Pulse Oximetry (%) 98 Oxygen Delivery Method Room Air Intake Visit Reasons: Mass on back Intake Note: Patient here for mass on right side back Sport Psychologist Required: No Accompanied by: Daughter Allergies Penicillins [PENICILLINS] Allergy (Unknown, Verified 07/04/23 13:51) RASH,ITCHY hydrochlorothiazide Adverse Reaction (Intermediate, Verified 07/04/23 13:51) dizzy Medication List - Last Reconciled 07/04/23 by Fiorella Coronel MD acetaminophen ER (Tylenol Arthritis Pain) 650 mg PO Q8H 30 days alendronate 70 mg PO QWEEK amitriptyline 50 mg PO BEDTIME cholecalciferol (vitamin D3) 125 mcg PO DAILY citalopram 20 mg PO DAILY clonazepam 1 mg PO BID PRN compress.stocking,knee,reg,lrg As directed cyanocobalamin (vitamin B-12) 1,000 mcg PO DAILY 90 days cyclobenzaprine 5 mg PO TID PRN diclofenac sodium 1% (Voltaren Arthritis Pain) 4 grams topical QID docusate sodium 200 mg (2 x 100 mg) PO DAILY fluticasone propionate 50 mcg/actuation (Flonase Allergy Relief) 2 sprays intranasal DAILY gabapentin 300 mg PO BID hydroxyzine HCl 25 mg PO TID PRN 10 days lisinopril 40 mg PO DAILY loratadine 10 mg PO DAILY 90 days [Poise PAds [id number] As directed] [Reclining Chair As directed] rosuvastatin 20 mg PO DAILY sennosides (senna) 17.2 mg (2 x 8.6 mg) PO BEDTIME Tobacco use date assessed: 10/27/22 Fall risk assessment: No Falls in past year Last assessed Fall Risk: 07/04/23 Dental Screening Dental Screen Date: 07/04/23 Did you have a dental visit in the last 12 months?: Yes Did you have a dental problem in the last 6 months where you did not have access to dental care?: No Was dental information given to patient?: Patient has dentist HPI Mass on back 2 HPI0 Details 78-year-old obese female with knee osteo arthritis GERD hypertension hypercholesterolemia impaired glucose tolerance and generalized anxiety disorder last seen in April 2023. Patient is here for follow-up. Colonoscopy, up-to-date November last blood work has impaired glucose tolerance with hemoglobin A1c of 6.2. Mammogram and bone density are due. 1 week ago noted mass on the R lower back area and this has gotten bigger. [facility] Medical History (Updated 07/04/23 @ 14:14 by Fiorella Coronel MD) Knee pain, right Rotator cuff arthropathy of both shoulders Shoulder subluxation, right Subconjunctival hemorrhage of right eye Annual physical exam Eczematous dermatitis Bilateral hand numbness Urinary incontinence Shoulder pain, bilateral Osteoarthritis, knee Cataract Carpal tunnel syndrome Gout Anxiety and depression GERD (gastroesophageal reflux disease) Hypertension Hypercholesterolemia History of renal calculi Osteoporosis Migraine Impaired fasting glucose Peripheral vascular disease Obesity (BMI 30-39.9) Fibromyalgia Surgical History History of cataract surgery History of carpal tunnel release Family History Father CVD (cardiovascular disease) Stroke Mother Diabetes Hypertension Maternal Aunt Breast cancer Brother Intestinal cancer Social History Housing: Apartment Alcohol intake: never Patient Tobacco Use Status: Never used Tobacco e-Cigarette/Vaping Use: Never Used Second Hand Smoke Exposure: No service: No Current occupational status: disabled Current occupation: Rt handed Cognitive needs: No Hearing needs: No Vision needs: Yes Questionnaire Thrive Questionnaire Date Thrive assessed: 12/07/22 WAGNER-7 AMB Questionnaire WAGNER-7 Date WAGNER - 7 assessed: 12/07/22 Source: Developed by Drs. Christopher Lynne, Mera Kebede, Ron Flores and colleagues, with an educational wicho from [employer]. Physical exam (Primary Care) Vital Signs: Last Vital Signs Pulse 77 07/04/23 13:47 BP 138/74 07/04/23 13:47 Pulse Ox 98 07/04/23 13:47 Oxygen Delivery Method Room Air 07/04/23 13:47 BMI result Body Mass Index 32.9 Tobacco/Smoking Status: Tobacco use Status Tobacco use date assessed 10/27/22 07/04/23 13:46 Patient Tobacco Use Status Never used Tobacco 07/04/23 13:46 e-Cigarette/Vaping Use Never Used 07/04/23 13:46 Thrive Assessment: Date of Thrive Assessment Date Thrive assessed 12/07/22 07/04/23 13:46 Const General: alert; No acute distress Eyes Conjunctivae: conjunctivae normal Resp Auscultation: clear to auscultation bilaterally Cardio Rate: regular rate Rhythm: regular rhythm GI Inspection: Yes normal to inspection Back/Spine/Pelvis Back/spine/pelvis image: 2 1. 3 inch round mass non tender no change in color Extrem General: Yes normal to inspection and No edema Office Procedures Flu Questionnaire Does the patient have a severe egg allergy?: No Does the patient have severe life threatening allergies?: No Does the patient have a fever or illness today?: No Has the patient ever had Guillain-Adel Syndrome?: No Has the patient ever had any past reaction to a flu shot?: No Immunizations flu vacc [id number] 6mos up(PF) 60 mcg(15 mcgx4)/0.5 mL IM syringe Performing Provider: Fiorella Coronel MD Performing Location: [facility] Administered by: Chase Healy on 07/04/23 14:32 2 Dose Route Admin Location Dispensed Lot Number Expiration Date NDC [employer] 0.5 mL IM Left Deltoid 0.5 mL [id number] 03/16/24 07691-973-56 Loop 2 VIS Given Date VIS Provided VIS Publication Date 07/04/23 Single Vaccine 21 Eligibility Eligibility Date Funding Source Not [facility] Eligible 07/04/23 Private Assessment and Plan Assessment & Plan (1) Obesity (BMI 30-39.9): Code(s): E66.9 - Obesity, unspecified Plan: Diet and exercise (2) Impaired fasting glucose: Code(s): R73.01 - Impaired fasting glucose Plan: Advised retesting blood sugar (3) Sebaceous cyst: Comment: R lower back Code(s): L72.3 - Sebaceous cyst Plan: referral to surgeon (4) Torticollis: Code(s): M43.6 - Torticollis Plan: heat helps, muscle relaxant sent Orders: Orders 2 Influenza [id number] Immunization Today Z23 - Encounter for immunization XR chest 2V Today I10 - Essential (primary) hypertension Referrals 2 General Surgery Referral L72.3 - Sebaceous cyst Medications: New 2 cyclobenzaprine 5 mg PO TID PRN 30 tabs 0RF muscle spasm M43.6 - Torticollis Coding Level of Care Code Est Pt Level 4 (24659) Diagnoses Obesity (BMI 30-39.9) E66.9 Impaired fasting glucose R73.01 Sebaceous cyst L72.3 Torticollis M43.6
[2023-07-04 13:47] VITALS: BP 138/74; PULSE 77; O2SAT 98; BMI 32.9
== END 2023-07-04 14:37 | disposition home or self-care (01) ==
PROVIDERS: PCP Internal Medicine; Visit Provider Internal Medicine
DX: R73.01 Impaired fasting glucose (principal); E66.9 Obesity, unspecified; Z68.32 Body mass index [BMI] 32.0-32.9, adult; L72.3 Sebaceous cyst; Z23 Encounter for immunization; M43.6 Torticollis
CPT/HCPCS: 90471; 90686; 99214

== ENCOUNTER 2023-07-10 10:36 | Outpatient (REF) | payer OTHER, SELFPAY ==
--- NOTE | ~2023-07-10 | MM_ITS ---
EXAMINATION: BONE DENSITOMETRY CLINICAL INDICATION: Osteoporosis. COMPARISON: Previous BD dated 07/06/2021 and baseline BD dated 09/14/2005. TECHNIQUE: Using a [employer] DXA System (software version: 13.1) manufactured by [employer], dual-energy x-ray absorptiometry was performed of the lumbar spine and left hip. The images are of good technical quality. Summary results are attached. FINDINGS: LEFT FEMUR, NECK: Current: BMD 0.754 g/cm2, Z-score -0.5, T-score -2.0, osteopenia. Prior: BMD 0.797 g/cm2. Baseline: BMD 0.830 g/cm2. LEFT FEMUR, TOTAL: Current: BMD 0.855 g/cm2, Z-score 0.1, T-score -1.2, osteopenia, 5.8% decrease from previous, 8.8% decrease from baseline (<5% change is not significant). Prior: BMD 0.908 g/cm2. Baseline: BMD 0.937 g/cm2. AP SPINE L1-L4: Current: BMD 1.030 g/cm2, Z-score -0.1, T-score -1.3, osteopenia, 5.2% decrease from previous, 1.9% increase from baseline (<5% change is not significant). Prior: BMD 1.086 g/cm2. Baseline: BMD 1.011 g/cm2. IDENTIFIED RISK FACTORS: Menopause, family history (parent hip fracture). HISTORY OF FRACTURE: None listed. MEDICATIONS: Calcium, vitamin D, bisphosphonate. MM/XR DEXA axial skeleton IMPRESSION: 1. DIAGNOSIS: Osteopenia based on the lowest T-score value of -2.0 in the femoral neck applying World Health Organization criteria. 2. 10-YEAR FRACTURE RISK PREDICTION, FRAX: Not performed in this patient on estrogen or bone building treatments. 3. Treatment Recommendations: NOF guidelines recommend consideration for treatment in postmenopausal women and men age 50 and older presenting with the following: -A hip or vertebral (clinical or morphometric) fracture. -T-score less than or equal to -2.5 at the femoral neck or spine after appropriate evaluation to exclude secondary causes. -Low bone mass at the hip or spine and a 10-year fracture probability by FRAX of greater than or equal to 3% for hip fracture or greater than or equal to 20% for major osteoporotic fracture based on the [place] adapted WHO algorithm. 4. Other Recommendations: All treatment decisions require clinical judgment and consideration of individual patient factors, including patient preferences, comorbidities, previous drug use, risk factors not captured in the FRAX model (e.g. frailty, falls, vitamin D deficiency, increased bone turnover, interval significant decline in bone density) and possible under or overestimation of fracture risk by FRAX. Additional medical evaluation for secondary cause of low bone mineral density may be appropriate. FUTURE SCAN RECOMMENDATION: People with diagnosed cases of osteoporosis or at high risk for fracture should have regular bone mineral density tests. For patients eligible for Medicare, routine testing is allowed once every 2 years. The testing frequency can be increased to one year for patients who have rapidly progressing disease, those who are receiving or discontinuing medical therapy to restore bone mass, or have additional risk factors.
--- NOTE | ~2023-07-10 | MM_ITS ---
EXAMINATION: MM SCREENING DIGITAL BREAST TOMOSYNTHESIS, BILATERAL CLINICAL INFORMATION: Screening. Asymptomatic. COMPARISON: Mammography: This study is compared with prior exams dating back to 2017. TECHNIQUE: Digital breast tomosynthesis is performed in both the craniocaudal and mediolateral oblique views along with computer-aided detection (CAD). Synthesized 2D images are generated from the tomosynthesis. FINDINGS: The breasts are almost entirely fatty (ACR BI-RADS breast composition Category a). There are no significant masses, abnormal calcifications, or other abnormalities. MM/MM tomosynthesis screening BI IMPRESSION: No mammographic evidence of malignancy. ASSESSMENT: BI-RADS BI-RADS 1 - Negative RECOMMENDATION: Routine annual mammography screening. 1 year F/U This examination should not preclude the clinical evaluation of a suspicious palpable abnormality. This patient's information was entered into a reminder system with a target due date for their next mammogram.
== END 2023-07-10 10:37 | disposition home or self-care (01) ==
LOC: HO.MAMMO 10:36
PROVIDERS: PCP Internal Medicine; Visit Provider Internal Medicine
DX: Z12.31 Encounter for screening mammogram for malignant neoplasm of breast (principal); Z13.820 Encounter for screening for osteoporosis; M81.0 Age-related osteoporosis without current pathological fracture; M85.80 Other specified disorders of bone density and structure, unspecified site; Z78.0 Asymptomatic menopausal state
CPT/HCPCS: 77063; 77067; 77080

== ENCOUNTER → 2023-07-10 11:00 | Outpatient (BNV) | payer OTHER, SELFPAY | PROVIDERS: PCP Internal Medicine; Visit Provider Radiology Diagnostic Radiology | DX: Z12.31 Encounter for screening mammogram for malignant neoplasm of breast (principal) | CPT/HCPCS: 77063; 77067 ==

== ENCOUNTER 2023-08-28 11:04 | Outpatient (AMB) | payer OTHER, SELFPAY ==
--- NOTE | 2023-08-28 11:21 | MHC.OFFVIS ---
Intake Vital Signs 08/28/23 11:36 Height 5 ft 3 in Weight 187 lb 6 oz BMI 33.2 BP 195/81 H Blood Pressure Location Lt brachial Position Sitting Pulse 66 Intake Visit Reasons: sebaceous cyst Intake Note: Patient is seen in office for evaluation and treatment of a sebaceous cyst of the Pt c/o: feels a lump on the right side of the back, denies increase, decrease, discharge, redness, swelling or other concerns Accompanied by: Family/Other Allergies Penicillins [PENICILLINS] Allergy (Unknown, Verified 08/28/23 11:32) RASH,ITCHY hydrochlorothiazide Adverse Reaction (Intermediate, Verified 08/28/23 11:32) dizzy Medication List - Last Reconciled 08/28/23 by Ponce Handy MD acetaminophen ER (Tylenol Arthritis Pain) 650 mg PO Q8H 30 days alendronate 70 mg PO QWEEK amitriptyline 50 mg PO BEDTIME cholecalciferol (vitamin D3) 125 mcg PO DAILY citalopram 20 mg PO DAILY clonazepam 1 mg PO BID PRN compress.stocking,knee,reg,lrg As directed cyanocobalamin (vitamin B-12) 1,000 mcg PO DAILY 90 days cyclobenzaprine 5 mg PO TID PRN diclofenac sodium 1% (Voltaren Arthritis Pain) 4 grams topical QID docusate sodium 200 mg (2 x 100 mg) PO DAILY fluticasone propionate 50 mcg/actuation (Flonase Allergy Relief) 2 sprays intranasal DAILY gabapentin 300 mg PO BID hydroxyzine HCl 25 mg PO TID PRN 10 days lisinopril 40 mg PO DAILY loratadine 10 mg PO DAILY 90 days [Poise PAds [id number] As directed] [Reclining Chair As directed] rosuvastatin 20 mg PO DAILY sennosides (senna) 17.2 mg (2 x 8.6 mg) PO BEDTIME HPI HPI Comments History of Present Illness Details 78-year-old female patient presenting with a soft tissue mass located in the right flank. She feels the lump has increased in size over the last several years and is now causing some discomfort. Lesion rubs against the bottom of her bra off which seems to increase to discomfort. She denies any previous trauma or surgery in this location. She was told to have the lesion removed for biopsy. REPLACED BY [facility] Medical History Knee pain, right Rotator cuff arthropathy of both shoulders Shoulder subluxation, right Subconjunctival hemorrhage of right eye Annual physical exam Eczematous dermatitis Bilateral hand numbness Urinary incontinence Shoulder pain, bilateral Osteoarthritis, knee Cataract Carpal tunnel syndrome Gout Anxiety and depression GERD (gastroesophageal reflux disease) Hypertension Hypercholesterolemia History of renal calculi Osteoporosis Migraine Impaired fasting glucose Peripheral vascular disease Obesity (BMI 30-39.9) Fibromyalgia Surgical History History of shoulder surgery (12/12/22) History of cataract surgery History of carpal tunnel release Family History Father CVD (cardiovascular disease) Stroke Mother Diabetes Hypertension Maternal Aunt Breast cancer Brother Intestinal cancer Social History Housing: Apartment Alcohol intake: never Patient Tobacco Use Status: Never used Tobacco e-Cigarette/Vaping Use: Never Used Second Hand Smoke Exposure: No service: No Current occupational status: disabled Current occupation: Rt handed Cognitive needs: No Hearing needs: No Vision needs: Yes Review of Systems Const All systems reviewed & are unremarkable except as noted in HPI and below Denies chills, Denies fever(s), Denies headache(s), Denies poor appetite and Denies weakness ENT Denies headache(s) Card Denies chest pain, Denies irregular heart rhythm, Denies palpitations and Denies dyspnea Resp Denies cough, Denies excessive phlegm production and Denies dyspnea GI Denies abdominal pain, Denies bloating, Denies change in bowel habits, Denies constipation, Denies heartburn, Denies diarrhea, Denies nausea and Denies vomiting Denies urinary frequency Musc Denies back pain, Denies muscle weakness and Denies numbness Skin/Breast Denies changing lesions and Denies unusual bruising Neuro Denies headache(s), Denies numbness, Denies paresthesias and Denies weakness Psych Denies anxiety and Denies depression Endo Denies palpitations Marvel/Lymph Denies lymphadenopathy Physical Exam Vital Signs: Last Vital Signs Pulse 66 08/28/23 11:36 BP 195/81 H 08/28/23 11:36 BMI result Body Mass Index 33.2 Const General: cooperative and no acute distress Nutritional Appearance: well nourished Orientation/consciousness: patient oriented x3 Limitations: no limitations HEENT Head: Yes normocephalic and Yes atraumatic Ears: hearing grossly normal bilaterally Resp Effort & Inspection: normal respiratory effort, no audible wheezes, no cough and no respiratory distress Cardio Jugular venous distension: no JVD GI Inspection: Yes normal to inspection Back/Spine/Pelvis Other: Lesion as noted below Back/spine/pelvis image: 1. Site of mass, approximally 3 cm diameter Skin Other: Warm, dry, no rash Neuro General: patient oriented x3 Extrem General: Yes no clubbing, cyanosis or edema Assessment & Plan Assessment & Plan (1) Right flank mass: Code(s): R19.00 - Intra-abdominal and pelvic swelling, mass and lump, unspecified site Plan 78-year-old female patient presenting with a soft tissue mass located in the right flank. She reports some discomfort associated with the lesion. She is requesting excision of the lesion. We discussed the options including excision under local anesthesia versus general anesthesia. After discussion of the procedure, risks, and alternatives, she consents to excision of the right flank mass as a short-stay surgery. Coding Level of Care Code New Pt Level 4 (38456) Diagnoses Right flank mass R19.00
[2023-08-28 11:36] VITALS: BP 195/81; PULSE 66; BMI 33.2
== END 2023-08-28 11:45 | disposition home or self-care (01) ==
PROVIDERS: PCP Internal Medicine; Visit Provider Surgery
DX: R19.00 Intra-abdominal and pelvic swelling, mass and lump, unspecified site (principal)
CPT/HCPCS: 99204

== ENCOUNTER → 2023-08-28 11:04 | Outpatient (BNVA) | payer OTHER, SELFPAY | PROVIDERS: PCP Internal Medicine; Visit Provider Surgery | DX: R19.00 Intra-abdominal and pelvic swelling, mass and lump, unspecified site (principal) | CPT/HCPCS: 99202 ==

== ENCOUNTER 2023-08-29 10:57 | Outpatient (REF) | payer OTHER, SELFPAY ==
--- NOTE | ~2023-08-29 | US_ITS ---
EXAMINATION: US RETROPERITONEAL LIMITED (RENAL ONLY) CLINICAL INFORMATION: Calculus of kidney. COMPARISON: X-ray KUB 12/21/2022. Renal ultrasound 08/08/2022 and 01/26/2022. TECHNIQUE: Real-time imaging of the kidneys. FINDINGS: RIGHT KIDNEY: 11.2 x 3.6 x 5.1 cm (SAG x AP x TRV). The kidney is normal in size, contour, and echogenicity. Renal cortical thickness is normal. No renal calculi. Subcentimeter benign-appearing renal cyst, no follow-up imaging recommended. Pelviectasis without risa hydronephrosis, similar to prior. LEFT KIDNEY: 10.7 x 4.1 x 4.2 cm (SAG x AP x TRV). The kidney is normal in size, contour, and echogenicity. Renal cortical thickness is normal. No calculi or focal parenchymal lesions. Pelviectasis without risa hydronephrosis similar to prior. US/US renal BI IMPRESSION: Pelviectasis without risa hydronephrosis similar to prior. No nephrolithiasis appreciated.
== END 2023-08-29 10:58 | disposition home or self-care (01) ==
LOC: HO.US 10:57
PROVIDERS: PCP Internal Medicine; Visit Provider Nurse Practitioner Family
DX: N20.0 Calculus of kidney (principal)
CPT/HCPCS: 76775

== ENCOUNTER 2023-09-20 10:24 | Outpatient (REF) | payer OTHER, SELFPAY ==
--- NOTE | ~2023-09-20 | XR_ITS ---
EXAMINATION: XR CHEST CLINICAL INFORMATION: Essential hypertension. COMPARISON: None available. TECHNIQUE: 2 views of the chest were obtained. FINDINGS: There is no gross pneumothorax. Lung volumes are low. Dextroscoliosis of the thoracic spine with multilevel degenerative changes. Right total hip prosthesis incompletely imaged. Bilateral perihilar peribronchial thickening. No pleural effusion. No focal consolidation to suggest pneumonia. XR/XR chest 2V IMPRESSION: Bilateral perihilar peribronchial thickening. CT scan of the chest recommended for further evaluation.
[2023-09-20 11:20] LABS: Alanine Aminotransferase 16 U/L (0-31); Albumin Level 4.2 g/dL (3.5-5.0); Alkaline Phosphatase 77 U/L (39-117); Anion Gap 10 (12-20); Aspartate Amino Transferase 19 U/L (5-31); Bilirubin Total 0.4 mg/dL (0.0-1.0); Blood Urea Nitrogen 17 mg/dL (9-16); Calcium 9.5 mg/dL (8.4-10.2); Carbon Dioxide 30 mmol/L (22-29); Chloride 105 mmol/L (96-108); Cholesterol 211 mg/dL (<200); Estimated Glomerular Filt Rate > 60; Glucose Random 117 mg/dL (60-115); HDL Cholesterol 64 mg/dL (>40); LDL Cholesterol Calculated 112 mg/dL (<100); Magnesium 1.8 mg/dL (1.6-2.6); Potassium 4.3 mmol/L (3.3-5.1); Sodium 141 mmol/L (135-145); Total Protein 7.5 g/dL (6.5-8.0); Triglycerides 179 mg/dL (<150)
[2023-09-20 11:38] LABS: Free T4 (Free Thyroxine) 0.77 ng/dL (0.71-1.85); Thyroid Stimulating Hormone 0.94 uIU/mL (0.32-4.0)
== END 2023-09-20 10:25 | disposition home or self-care (01) ==
LOC: HO.XRAY 10:24
PROVIDERS: PCP Internal Medicine; Visit Provider Internal Medicine
DX: R73.01 Impaired fasting glucose (principal); E78.00 Pure hypercholesterolemia, unspecified; I10 Essential (primary) hypertension; R30.0 Dysuria
CPT/HCPCS: 36415; 71046; 80053; 80061; 81001; 82607; 82746; 83036; 83735; 84439; 84443; 85025; 87086; 87088; 87186

== ENCOUNTER → 2023-09-28 06:54 | Outpatient (BNV) | payer OTHER, SELFPAY | PROVIDERS: PCP Internal Medicine; Visit Provider Surgery | DX: D17.1 Benign lipomatous neoplasm of skin and subcutaneous tissue of trunk (principal) | CPT/HCPCS: 21931 ==

== ENCOUNTER 2023-09-28 07:18 | Day surgery (SDC) | payer OTHER, SELFPAY ==
[2023-09-25 07:37] VITALS: BMI 33.1
--- NOTE | 2023-09-26 11:55 | HO.ANESPROP2 ---
Documented by User: Jessika Castelan NP 09/26/23 11:57 HPI - Anesthesia Eval Consult details Narrative: 78yo F for Colonoscopy PMFSH Active Problems Active Problems: All Active Problems (Updated 09/25/23 @ 07:30 by Keri Reyes RN) Right flank mass (Acute) Torticollis (Acute) Sebaceous cyst (Acute) Face lesion (Acute) Dysuria (Acute) Annual physical exam (Acute) Renal cyst (Acute) Generalized anxiety disorder (Acute) Rotator cuff injury (Acute) Allergic rhinitis (Acute) Osteopenia (Acute) Seborrheic dermatitis of scalp (Acute) Osteoarthritis, knee (Acute) Shoulder subluxation, right (Acute) History of renal calculi (Acute) GERD (gastroesophageal reflux disease) (Acute) Hypertension (Acute) Hypercholesterolemia (Acute) Migraine (Acute) Impaired fasting glucose (Acute) Obesity (BMI 30-39.9) (Acute) Past Medical History Medical History Nephrolithiasis Knee pain, right Rotator cuff arthropathy of both shoulders Shoulder subluxation, right Subconjunctival hemorrhage of right eye Annual physical exam Eczematous dermatitis Bilateral hand numbness Urinary incontinence Shoulder pain, bilateral Osteoarthritis, knee Cataract Carpal tunnel syndrome Gout Anxiety and depression GERD (gastroesophageal reflux disease) Hypertension Hypercholesterolemia History of renal calculi Osteoporosis Migraine Impaired fasting glucose Peripheral vascular disease Obesity (BMI 30-39.9) Fibromyalgia Family History Family History Father CVD (cardiovascular disease) Stroke Mother Diabetes Hypertension Maternal Aunt Breast cancer Brother Intestinal cancer Surgical History Surgical History Hx of blepharoplasty H/O colonoscopy History of shoulder surgery (12/12/22) History of cataract surgery History of carpal tunnel release Social History Social History Housing: Apartment Alcohol intake: never Patient Tobacco Use Status: Never used Tobacco e-Cigarette/Vaping Use: Never Used Second Hand Smoke Exposure: No Advance Directives: No Advance Directives Information Provided: Yes service: No Current occupational status: disabled Current occupation: Rt handed Cognitive needs: No Hearing needs: No Vision needs: Yes Meds Allergies Allergy/AdvReac Type Severity Reaction Status Date / Time Penicillins [PENICILLINS] Allergy Intermediate RASH,ITCHIN Verified 09/26/23 12:38 G hydrochlorothiazide AdvReac Intermediate dizzy Verified 08/28/23 11:32 Home Medications Medication Instructions Recorded Confirmed Last Taken Type amitriptyline 50 mg tablet 50 mg PO BEDTIME 07/26/20 09/26/23 Unknown History citalopram 20 mg tablet 20 mg PO DAILY 02/11/21 09/26/23 Unknown History clonazepam 1 mg tablet 0.5 mg PO DAILY PRN Anxiety 02/11/21 09/26/23 Unknown History acetaminophen 650 mg 650 mg PO BID PRN Pain 09/25/23 09/26/23 Unknown History tablet,extended release (Tylenol Arthritis Pain) calcium carbonate 500 mg-vitamin 1 tab PO BID 09/25/23 09/26/23 Unknown History D3 3.125 mcg (125 unit) tablet famotidine 40 mg tablet 40 mg PO DAILY 09/25/23 09/26/23 Unknown History fluticasone propionate 50 1 spray intranasal DAILY 09/25/23 09/26/23 Unknown History mcg/actuation nasal spray,suspension (Flonase Allergy Relief) lidocaine 4 %-m.salicyl 20 %-caps 1 ea topical 09/25/23 Unknown History 0.0375 %-menth 10 % topical ointment (Transderm-iQ) peg 3350 240 gram-electrolytes 240 ml PO Q10M 09/25/23 09/25/23 Unknown History 22.72 gram-6.72 g-5.84 g powdr for soln rosuvastatin 20 mg tablet 10 mg PO DAILY 09/25/23 09/26/23 Unknown History Exam Height,Weight and Vital Signs: Height 5 ft 3 in Weight 84.822 kg Pertinent Lab Results Pertinent Lab Results: Laboratory Tests 09/20/23 10:33 WBC 5.9 Hgb 12.2 Hct 37.6 Plt Count 221 Sodium 141 Potassium 4.3 Chloride 105 Carbon Dioxide 30 H BUN 17 H Creatinine 0.84 Narrative Narrative: EKG 11/2022 SR @ 77 Assessment and Plan Assessment Anesthesia Assessment: Chart Reviewed Documented by User: Aysha Sinha MD 09/28/23 07:32 HPI - Anesthesia Eval Consult details Narrative: 78yo F for Colonoscopy , still with brown stool. getting enema PMFSH Past Medical History Medical History Nephrolithiasis Knee pain, right Rotator cuff arthropathy of both shoulders Shoulder subluxation, right Subconjunctival hemorrhage of right eye Annual physical exam Eczematous dermatitis Bilateral hand numbness Urinary incontinence Shoulder pain, bilateral Osteoarthritis, knee Cataract Carpal tunnel syndrome Gout Anxiety and depression GERD (gastroesophageal reflux disease) Hypertension Hypercholesterolemia History of renal calculi Osteoporosis Migraine Impaired fasting glucose Peripheral vascular disease Obesity (BMI 30-39.9) Fibromyalgia Family History Family History Father CVD (cardiovascular disease) Stroke Mother Diabetes Hypertension Maternal Aunt Breast cancer Brother Intestinal cancer Family history of problems with anesthesia: No Surgical History Surgical History Hx of blepharoplasty H/O colonoscopy History of shoulder surgery (12/12/22) History of cataract surgery History of carpal tunnel release History of Problems with Anesthesia: No Social History Social History Housing: Apartment Alcohol intake: never Patient Tobacco Use Status: Never used Tobacco e-Cigarette/Vaping Use: Never Used Second Hand Smoke Exposure: No Advance Directives: No Advance Directives Information Provided: Yes service: No Current occupational status: disabled Current occupation: Rt handed Cognitive needs: No Hearing needs: No Vision needs: Yes Meds Allergies Allergy/AdvReac Type Severity Reaction Status Date / Time Penicillins [PENICILLINS] Allergy Intermediate RASH,ITCHIN Verified 09/26/23 12:38 G hydrochlorothiazide AdvReac Intermediate dizzy Verified 08/28/23 11:32 Home Medications Medication Instructions Recorded Confirmed Last Taken Type amitriptyline 50 mg tablet 50 mg PO BEDTIME 07/26/20 09/26/23 Unknown History citalopram 20 mg tablet 20 mg PO DAILY 02/11/21 09/26/23 Unknown History clonazepam 1 mg tablet 0.5 mg PO DAILY PRN Anxiety 02/11/21 09/26/23 Unknown History acetaminophen 650 mg 650 mg PO BID PRN Pain 09/25/23 09/26/23 Unknown History tablet,extended release (Tylenol Arthritis Pain) calcium carbonate 500 mg-vitamin 1 tab PO BID 09/25/23 09/26/23 Unknown History D3 3.125 mcg (125 unit) tablet famotidine 40 mg tablet 40 mg PO DAILY 09/25/23 09/26/23 Unknown History fluticasone propionate 50 1 spray intranasal DAILY 09/25/23 09/26/23 Unknown History mcg/actuation nasal spray,suspension (Flonase Allergy Relief) lidocaine 4 %-m.salicyl 20 %-caps 1 ea topical 09/25/23 Unknown History 0.0375 %-menth 10 % topical ointment (Transderm-iQ) peg 3350 240 gram-electrolytes 240 ml PO Q10M 09/25/23 09/25/23 Unknown History 22.72 gram-6.72 g-5.84 g powdr for soln rosuvastatin 20 mg tablet 10 mg PO DAILY 09/25/23 09/26/23 Unknown History Exam Airway Mallampati Class: II TM Dist: >3cm Neck ROM: Full Denture: Upper and Lower Heart: rrr Lungs: cta Assessment and Plan Assessment Anesthesia Assessment: Anesthesia Plan Discussed Final Anesthetic Review Family History of Problems with Anesthesia: No History of Problems with Anesthesia: No NPO: Yes ASA Class: II Final Preanesthetic Review: No Changes in Pt Med Stat, Meds/Allgs Chart Reviewed, Consent Obtained/Reviewed and Anes Risks/Benef Reviewed Patient Risk: Low Procedure Risk: Low Anesthetic Plan Anesthetic Plan: MAC: Disposition: Standard PACU
[2023-09-28 07:24] VITALS: BP 150/83; PULSE 72; RESP 20; TEMP 36.1; O2SAT 97; BMI 33.2
[2023-09-28] MEDS: Lactated Ringers 1,000 ML 100 ML IVCONT (07:47)
--- NOTE | 2023-09-28 08:08 | MHC.SHP ---
Pre-Procedural Eval Section A Date of Service: 09/28/23 Section B Chief Complaint: Encounter for screening for malignant neoplasm of Details of Present Illness: see H&P no changes Relevant Family History (Specify if Yes): No Relevant Social History: None Present Medications: see Short Stay Collaborative assessment Medical History: No relevant PMH History of Previous Operations: No relevant previous surgery Allergies: Allergies Allergy/AdvReac Type Severity Reaction Status Date / Time Penicillins [PENICILLINS] Allergy Intermediate RASH,ITCHIN Verified 09/26/23 12:38 G hydrochlorothiazide AdvReac Intermediate dizzy Verified 08/28/23 11:32 Review of Systems Sugical H&P ROS: Negative: Constitution, Cardiovascular, Respiratory, Neurological, Psychiatric, Hem-Onc, Allergic/Immunologic, Gastrointestinal, Genitourinary, Musculoskeletal, Integumentary, Endocrine and Eyes/Ears/Nose/Throat Exam Surgical H&P Exam: Normal: HEENT, Normal: Heart, Normal: Lungs, Normal: Extremities, Normal: Abdomen, Normal: Skin and Normal: Neurological Plan Diagnosis/Plan: Unchanged I have reviewed the history and physical and performed a pertinent physical examination on my patient. No changes have occurred unless specified. Time Spent With Patient Time: Total time managing care of this patient today ____ minutes.
[2023-09-28 08:38] VITALS: BP 108/60; PULSE 76; RESP 16; TEMP 36.7; O2SAT 99
[2023-09-28 08:53] VITALS: BP 131/64; PULSE 81; RESP 16; TEMP 36.1; O2SAT 97
--- NOTE | 2023-09-28 10:58 | OP_ITS ---
DATE OF SERVICE: 09/28/2023 SURGEON: Edwin Sorto MD INDICATIONS: Colon cancer screening and prior history of adenomatous colon polyps. PREOPERATIVE DIAGNOSIS: POSTOPERATIVE DIAGNOSIS: PROCEDURE PERFORMED: Colonoscopy to the terminal ileum. ESTIMATED BLOOD LOSS: COMPLICATIONS: ANESTHESIA: Medications: Monitored anesthesia care. ASSISTANTS: SPECIMENS: DESCRIPTION OF PROCEDURE: A History and Physical was performed. The risks and benefits of the procedure were explained to the patient, and informed consent was obtained. The patient was placed in the left lateral decubitus position. A digital rectal exam was performed and was found to be normal. The Olympus pediatric video colonoscope was introduced into the rectum and advanced to the cecum. The cecum was identified by transillumination, palpation, and identification of the ileocecal valve. Examination was performed and the scope was removed. She tolerated the procedure well and was taken to recovery area in stable condition. FINDINGS: The terminal ileum was examined and appeared normal. The visualized colonic mucosa was normal. The quality of the prep was good except in the descending and sigmoid, where there was some liquid stool that was washed and suctioned. No polyps were identified. Retroflexed examination showed some internal hemorrhoids, that were small. IMPRESSION: Normal colonoscopy. RECOMMENDATIONS: 1. Follow up as needed. 2. Repeat colonoscopy is optional based on age. MD JUAN Mitchell/AMPAROL / [id number]
== END 2023-09-28 09:23 | disposition home or self-care (01) ==
PROVIDERS: PCP Internal Medicine; Visit Provider Internal Medicine Gastroenterology
PROC: 0DJD8ZZ Inspection of Lower Intestinal Tract, Via Natural or Artificial Opening Endoscopic (ICD-10-PCS; CPT 45378; principal; 2023-09-28 08:20)
DX: Z12.11 Encounter for screening for malignant neoplasm of colon (principal); Z86.010 Personal history of colon polyps; K64.8 Other hemorrhoids; Z80.0 Family history of malignant neoplasm of digestive organs; K21.9 Gastro-esophageal reflux disease without esophagitis; I10 Essential (primary) hypertension; E78.00 Pure hypercholesterolemia, unspecified; F41.8 Other specified anxiety disorders; M79.7 Fibromyalgia; G43.909 Migraine, unspecified, not intractable, without status migrainosus; Z79.51 Long term (current) use of inhaled steroids; Z79.899 Other long term (current) drug therapy; Z88.0 Allergy status to penicillin; Z98.890 Other specified postprocedural states
CPT/HCPCS: G0105; J2704

== ENCOUNTER 2023-10-01 06:00 | Day surgery (SDC) | payer OTHER, SELFPAY ==
[2023-09-26 12:41] VITALS: BMI 33.1
--- OUTSIDE RECORDS SUMMARY | 2023-09-28 06:57 | XMS_ITS | Continuity of Care Document ---
Author Name Unknown Organization [facility] ter Address [address] [place] [id number]- Care Team Providers Care Dry Cell Tester Name Role Phone Po Fiorella [place] Primary Care Physician Encounter [facility] Date(s): 12/13/22 - 01/12/[address] [address]- Attending Physician: Not on Staff, Attending MD Admitting Physician: Not on Staff, Admitting MD Referring Physician: Not on Staff, Referring MD Allergies, Adverse Reactions, Alerts Substance Reaction Severity Status penicillin itching rash Active Medications acetaminophen 325 mg oral tablet 975 mg, 3, tablet, By Mouth, Every 8 hours, Refills 0, Maintenance, 12/13/22 7:08:00 EDT, Partial fill upon patient request if the prescription is for a schedule II opioid drug. Start Date: 12/13/22 Status: Ordered alendronate 70 mg oral tablet 1 tablet = 70 mg, By Mouth, Every week, # 12 tablet, 0 Refills, Maintenance, 12/11/22 9:52:00 EDT, Tablet, Partial fill upon patient request if the prescription is for a schedule II opioid drug. Start Date: 12/11/22 Status: Ordered amitriptyline 50 mg oral tablet 1 tablet = 50 mg, By Mouth, Daily at bedtime, # 30 tablet, 5 Refills, Maintenance, 12/11/22 9:51:00EDT, Tablet, Partial fill upon patient request if the prescription is for a schedule II opioid drug. Start Date: 12/11/22 Status: Ordered aspirin 325 mg oral delayed release tablet 325 mg, By Mouth, Daily, Refills 0, Maintenance, 12/13/22 7:09:00 EDT, Partial fill upon patient request if the prescription is for a schedule II opioid drug. Start Date: 12/13/22 Status: Ordered Cholecalciferol By Mouth, 0 Refills, Maintenance, 12/11/22 9:50:00 EDT, Partial fill upon patient request if the prescription is for a schedule II opioid drug. Start Date: 12/11/22 Status: Ordered Citalopram = 20 mg, By Mouth, Daily, 0 Refills, Maintenance, 12/11/22 9:48:00 EDT, Partial fill upon patient request if the prescription is for a schedule II opioid drug. Start Date: 12/11/22 Status: Ordered Clonazepam 1, By Mouth, 2 times a day, PRN Anxiety, 0 Refills, Maintenance, 12/11/22 9:48:00 EDT, Partial fillupon patient request if the prescription is for a schedule II opioid drug. Start Date: 12/11/22 Status: Ordered docusate sodium 100 mg oral capsule 100 mg, 1, capsule, By Mouth, 2 times a day, Refills 0, Maintenance, 12/13/22 7:09:00 EDT, Partial fill upon patient request if the prescription is for a schedule II opioid drug. Start Date: 12/13/22 Status: Ordered Gabapentin = 300 mg, By Mouth, 2 times a day, 0 Refills, Maintenance, 12/11/22 9:49:00 EDT, Partial fill upon patient request if the prescription is for a schedule II opioid drug. Start Date: 12/11/22 Status: Ordered Lisinopril = 40 mg, By Mouth, Daily, 0 Refills, Maintenance, 12/11/22 9:12:00 EDT, Partial fill upon patient request if the prescription is for a schedule II opioid drug. Start Date: 12/11/22 Status: Ordered Loratadine 10 mg, By Mouth, Daily, PRN, Refills 0, Maintenance, Sinus Symptoms, 12/11/22 9:50:00 EDT, Partial fill upon patient request if the prescription is for a schedule II opioid drug. Start Date: 12/11/22 Status: Ordered oxyCODONE 5 mg oral tablet 5 mg, 1, tablet, By Mouth, Every 4 hours, PRN, Refills 0, Tot. Refills 0, Maintenance, Pain , Moderate, 12/13/22 7:09:00 EDT, Partial fill upon patient request if the prescription is for a schedule II opioid drug. Start Date: 12/13/22 Status: Ordered oxyCODONE 5 mg oral tablet 10 mg, 2, tablet, By Mouth, Every 4 hours, PRN, Refills 0, Tot. Refills 0, Maintenance, Pain , Severe, 12/13/22 7:09:00 EDT, Partial fill upon patient request if the prescription is for a schedule IIopioid drug. Start Date: 12/13/22 Status: Ordered rosuvastatin 20 mg oral tablet 1 tablet = 20 mg, By Mouth, Daily, # 60 tablet, 0 Refills, Maintenance, 12/11/22 9:51:00 EDT, Tablet, Partial fill upon patient request if the prescription is for a schedule II opioid drug. Start Date: 12/11/22 Status: Ordered Vitamin B12 0 Refills, Maintenance, 12/11/22 9:50:00 EDT, Partial fill upon patient request if the prescriptionis for a schedule II opioid drug. Start Date: 12/11/22 Status: Ordered Problem List Condition Confirmation Course Effective Dates Status [facility] Informant Obese class I Confirmed Active Patient Care team information Care Team Personnel Name: Salvador Brink RN Position: S RN Member Role: Primary Care Nurse Name: Fiorella Coronel MD Position: Reference Physician Member Role: PCP Address: Address: [address] [place] [address]- Name: Kaleigh Oviedo RN Position: S RN Member Role: Primary Care Nurse Name: Catie Whalen RN Position: [facility] RN Member Role: Primary Care Nurse Care Team Related Persons Name: FILI RAMIREZ Address: home [address] [place] [address] Name: ROS HONEYCUTT Address: home [address] [place] [address]
--- OUTSIDE RECORDS SUMMARY | 2023-09-28 06:57 | XMS_ITS | Continuity of Care Document ---
Author Name Unknown Organization [facility] Address [address] [place] [id number]- Care Team Providers Care Contingents Supervisor Name Role Phone Po Fiorella [place] Primary Care Physician [phone] Encounter 12/15/22 - 01/03/23 [facility] [address] [place] [id number]- Discharge Disposition: GOALS MET Allergies, Adverse Reactions, Alerts Substance Reaction Severity [...] Reference Physician Member Role: PCP Address: Address: [address] [place] [phone]- Name: Kaleigh Oviedo RN Position: S RN Member Role: Primary Care Nurse Name: Catie Whalen RN Position: S RN Member Role: Primary Care Nurse Care Team Related Persons Name: FILI RAMIREZ Address: home [address] [place] [address] Name: ROS HONEYCUTT Address: home [address] [place] [id number]
--- OUTSIDE RECORDS SUMMARY | 2023-09-28 06:57 | XMS_ITS | Continuity of Care Document ---
Author Name Unknown Organization [facility] ter Address [address] [place] [id number]- Care Team Providers Care Aircraft Electrical Systems Specialist Name Role Phone Fiorella Coronel MD Primary Care Physician Encounter [facility] [place]): 12/12/22 - 12/14/[address] [address] Discharge Disposition: A-Transfer VNA/Home Health Attending Physician: Yazmin Cazares MD, V Admitting Physician: Yazmin Cazares MD, V Referring Physician: Yazmin Cazares MD, V Allergies, Adverse Reactions, Alerts Substance Reaction Severity [...] opioid drug. Start Date: 12/11/22 Status: Ordered gabapentin 300 mg oral capsule 300 mg, Capsule, By Mouth, 12/14/22 9:00:00 EDT Start Date: 12/14/22 Stop Date: 12/14/22 Status: Completed Lisinopril = 40 mg, By Mouth, Daily, 0 Refills, Maintenance, 12/11/22 9:12:00 EDT, Partial fill upon patient request if the prescription is for a schedule II opioid drug. Start Date: 12/11/22 Status: Ordered lisinopril 20 mg oral tablet 40 mg, Tablet, By Mouth, Hold for: hold for SBP < 120, Cr > 1.4, 12/14/22 9:00:00 EDT Start Date: 12/14/22 Stop Date: 12/14/22 Status: Completed Loratadine 10 mg, By Mouth, Daily, PRN, [...] IIopioid drug. Start Date: 12/13/22 Status: Ordered oxyCODONE 5 mg oral tablet 5 mg, Tablet, By Mouth, Every 4 hours, PRN for Pain , Moderate, Routine, 12/12/22 12:49:00 EDT Start Date: 12/12/22 Stop Date: 12/14/22 Status: Discontinued rosuvastatin 20 mg oral tablet 1 tablet [...] atus Informant Obese class I Confirmed Active Results Radiology Reports * Exam Date Time Procedure Performing Provider Status 12/12/22 2:09 PM Shoulder 1 View Right Emily Asif; Auth (Verified) Notes: (Shoulder 1 View Right) Reason For Exam: S/p Right reverse total shoulder arthroplasty;Other: RESULT: Shoulder 1 View Right Shoulder 1 View Right, 1 views Reason: Other:; S p Right reverse total shoulder arthroplasty; Clinical Question(s): Dislocation COMPARISON: None. 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 There is mild atelectasis within the right lower lobe. IMPRESSION: Intact right reversed as to prosthesis without complications. WSN: [id number] Ordering Physician: Yazmin Cazares V Dictated By: Smith Maradiaga MD Dictated Date/Time: 12/12/22 2:41 pm Reviewed By: Smith Maradiaga MD Signed By: Smith Maradiaga MD Signed Date/Time: 12/12/22 2:41 pm Transcribed By: RAVEN Transcribed Date/Time: 12/12/22 2:40 pm Vital Signs Most recent to oldest [Reference Range]: 1 2 3 Height 160 cm (12/14/22 8:28 AM) 160 cm (12/14/22 6:39 AM) 160 cm (12/14/22 4:34 AM) Weight 85.1 kg (12/12/22 6:49 PM) 87.27 kg (12/12/22 9:40 AM) 87.27 kg (12/11/22 9:54 AM) Oxygen Saturation [94-100 %] 96 % (12/14/22 8:28 AM) 96 % (12/14/22 6:39 AM) 92 % *L* (12/14/22 4:34 AM) Pulse Rate [55-90 bpm] 81 bpm (12/14/22 8:28 AM) 86 bpm (12/14/22 6:39 AM) 85 bpm (12/14/22 4:34 AM) Body Mass Index [18.5-24.99 kg/m2] 33.24 kg/m2 *>HHI* (12/12/22 6:49 PM) 34.09 kg/m2 *>HHI* (12/12/22 9:40 AM) 34.09 kg/m2 *>HHI* (12/11/22 9:54 AM) Blood Pressure [90-138/55-84 mm Hg] 84/43mm Hg *L* (12/14/22 9:00 AM) 87/36mm Hg *L* (12/14/22 8:28 AM) 99/51mm Hg (12/14/22 6:39 AM) Respiratory Rate [16-30 br/min] 18 br/min (12/14/22 9:47 AM) 18 br/min (12/14/22 8:29 AM) 20 br/min (12/14/22 8:28 AM) Temperature [96.8-100.4 DegF] 98.9 DegF (12/14/22 8:28 AM) 98.8 DegF (12/14/22 6:39 AM) 98.3 DegF (12/14/22 4:34 AM) Liters per Minute 2 L/min (12/12/22 12:30 PM) 2 L/min (12/12/22 10:50 AM) 2 L/min (12/12/22 10:45 AM) Mode of Delivery (Oxygen) Room air (12/14/22 8:28 AM) Room air (12/14/22 6:39 AM) Room air (12/14/22 4:34 AM) Blood pressure sites Arm, left (12/14/22 8:28 AM) Arm, left (12/14/22 4:34 AM) Arm, left (12/13/22 8:00 PM) Temperature Route Oral (12/14/22 8:28 AM) Oral (12/14/22 6:39 AM) Oral (12/14/22 4:34 AM) Dry Weight 85.1 kg (12/12/22 6:49 PM) 85.1 kg (12/12/22 9:40 AM) 87.27 kg (12/11/22 9:54 AM) Dry Weight Obtained Via Standing scale (12/12/22 9:40 AM) History and physical note * Event Display: History and Physical Hospital Authored Date: * Event Display: History and Physical Hospital Authored Date: Note * Catie Whalen RN: PERFORM Event Display: Discharge/Transfer Note Hospital Authored Date: [id number] Nursing Discharge Note Entered On: 12/14/2022 9:53 EDT Performed On: 12/14/2022 9:53 EDT by Catie Whalen RN Nursing Discharge Note 2 Discharge Time : 12/14/2022 10:48 EDT Marlee CONKLIN Catie - 12/14/2022 10:57 EDT Discharge Level of Care at Discharge : Homehealth/VNA Patient Left Unit Via : Wheelchair Patient Accompanied Off Unit with : Responsible adult, Other: staff DC Instructions Provided & Signed by Pt : Yes Patient Understands D/C Instructions : Yes Patient Instructions Discharge Signed : Yes Did Pt have Specialty Bed or Wound Vac : No Marlee CONKLIN Catie - 12/14/2022 9:53 EDT * Marlee COKNLINCatie: PERFORM Event Display: Patient Education/Instruction Authored Date: [id number] Inpatient Adult Discharge Instructions [address] [address] Name: JAY MONTIEL : 1945 Visit: 12/12/2022 10:29:00 Current Date: 12/14/2022 09:54 Account: [id number] Inpatient Adult Discharge Instructions We would like to thank you for allowing us to assist you with your healthcare needs. The following includes patient education materials and information regarding your injury/illness. Our entire staffstrives to provide an excellent experience for our patients and their families. PLEASE ENSURE YOU FOLLOW-UP PER THE INSTRUCTIONS BELOW! ?? YOUR OPINION IS IMPORTANT TO US! Please complete the survey you may receive by mail or email. Your feedback will be used to make improvements to the healthcare experiences of our patients and their families. Surveys are administered by [employer] ?? If further treatment with your primary care physician or another doctor is recommended, it is important for you to keep the appointment. Call your primary care physician or return to the Emergency Department immediately if your condition worsens, fails to improve, or new symptoms develop. If you need to find a doctor, you can call [facility] for a referral at [phone] or toll free at [phone] ([phone]) or log in to [email or web address].. ?? You can view and manage your care through the patient portal or by using a health care alexey of your choosing. [employer] is a website that allows you to securely view your medical information including your hospital discharge summary, office visit summaries, medications and follow-up visits. You can also request appointments, renew medications, and request access to your medical information using a health care alexey of your choosing, or just ask a question. You can enroll at [email or web address] or register during your next office visit. You have been discharged from [facility], Patient Care Unit: S3. If you have any questions regarding these instructions after you leave, please call us and we will be happy to assist you. [facility] Your Care Team Attending Physician Yazmin Cazares MD, V Discharging Providers Yazmin Cazares MD, V Reason for Admission RIGHT SHOULDER OSTEOARTHRITIS CS 23 HR Your Diagnosis Right rotator cuff tear arthropathy Tests Performed Below is a partial list of the tests performed during your hospitalization. You may have had other tests and procedures not included in this list. Please discuss all test results with your provider. BUN CBC Creatinine Electrolytes XR Shoulder 1 View Right Primary Care Provider Fiorella Coronel MD Advance Directive Health Care Proxy on File No Discharge Vitals Temperature: 98.9 DegF Height: 160 cm Pulse Rate: 81 bpm Weight: 85.1 kg Respiratory Rate: 18 br/min Body Mass Index:??33.24 kg/m2??Critical Systolic Blood Pressure:??84 mm Hg??Low Body surface area: 1.94 Diastolic Blood Pressure:??43 mm Hg??Low ?? Oxygen Saturation: 96 % ?? Studies Pending All tests and labs ordered during this hospital stay have been completed unless listed below. Please discuss all pending results with your provider listed above in these instructions. ?? COVID-19 (2019 Novel Coronavirus) PCR What to do next Instructions From Your Doctor Discharge Orders You Need to Schedule the Following Appointments Follow Up with??As Needed When?? Follow Up with??Fiorella Coronel MD When?? Where: [address] [place] [address]- Discharge Medications JAY MONTIEL :1945 Visit Date:12/12/2022 Medications: Please continue your medications until treatment is completed or stopped by your provider. Medications not listed below should be discontinued. Discuss any questions related to medications with your provider. What How Much When Instructions Next Dose New Aspirin (aspirin 325 mg oral delayed release tablet) 325 Milligram Oral Daily 9am 3/31 New Docusate (docusate sodium 100 mg oral capsule) 1 capsule Oral Twice a day 12/14 New Oxycodone (oxyCODONE 5 mg oral tablet) 1 tab(s) Oral Every 4 hours as needed for Pain , Moderate as needed New Oxycodone (oxyCODONE 5 mg oral tablet) 2 tab(s) Oral Every 4 hours as needed for Pain , Severe as needed Changed Acetaminophen (acetaminophen 325 mg oral tablet) 3 tab(s) Oral Every 8 hours see instructions Unchanged Alendronate (alendronate 70 mg oral tablet) 1 tab(s) Oral Every week every week resume as you were Unchanged amiTRIPTYLINE (amitriptyline 50 mg oral tablet) 1 tab(s) Oral Daily at Bedtime 12/14 Unchanged Cholecalciferol Oral given today at 0930 am Unchanged Citalopram 20 Milligram Oral Daily 12/15 Unchanged Clonazepam 1 Oral Twice a day as needed for Anxiety as needed Unchanged Cyanocobalamin (Vitamin B12) resume as you were Unchanged Gabapentin 300 Milligram Oral Twice a day 12/14 Unchanged Lisinopril 40 Milligram Oral Daily 12/15 Unchanged Loratadine 10 Milligram Oral Daily as needed for Sinus Symptoms as needed Unchanged Rosuvastatin (rosuvastatin 20 mg oral tablet) 1 tab(s) Oral Daily 12/15 Test Results Below is a partial list of the most recent Laboratory test results done prior to this discharge. You may have had other tests and procedures not included in this list. Please discuss all test resultswith your provider. BUN (12/13/2022) ???BUN - 18 mg/dL CBC (12/13/2022) ???WBC - 11.6 k/mm3???RBC - 3.89 m/mm3???Hgb - 11.4 Gm/dL???Hct - 34.4 %???MCV - 88.4 femtoliters???MCH - 29.3 pg???MCHC - 33.1 g/dL???Platelet Count - 263 k/mm3???RDW-SD - 41.3 femtoliters???MPV - 9.5 femtoliters???Nucleated RBC (Automated) - 0.0 #/100 WBC'S???Abs. NRBC - 0.0 k/mm3 Creatinine (12/13/2022) ???Creatinine-Blood - 0.9 mg/dL???Estimated GFR Creatinine - 68 ML/MIN/1.73 M2 Electrolytes (12/13/2022) ???Sodium - 136 mmol/L???Potassium - 4.4 mmol/L???Chloride - 101 mmol/L???Bicarbonate Level - 25 mmol/L???Anion Gap - 10 Allergies (NKA means No Known Allergies) penicillin??(itching, rash) Problems Active Problems??(1) Obese class I?? Education Materials Below is the list of Educational Leaflet Providered with your Discharge Instructions. Valuables and Belongings I fully understand and agree that [facility] accepts no responsibility for all my personal property including clothing, toilet articles, radios, jewelry, dentures, hearing aids, rings, money, or any other property that is in my possession or is brought to me after admission. I understand certain valuables may be placed in a hospital safe for a short period of time. I understand that the hospital is not liable for loss or damage due to accident, fire, or other natural occurrence while said property is in the safe. I accept full responsibility for any personal property that I keep with me, and will not hold the hospital responsible in case of loss or disappearance. I acknowledge that i have been encouraged to send valuables and belongings home. ?? Review of Valuable and Belonging List: With patient, With witness Date for Pt to Sign Valuables/Belongings: 12/14/22 08:35:00 ?? Other Discharge Information ? Case Management Discharge Plan?? Discharge Plan?? Discharge Agency Information?? Discharge Level of Care at Discharge: Homehealth/VNA Name of Agency #1: [facility] ?? Agency [place] [place] #1: [phone] ?? Service Categories #1: Occupational Therapy, Physical Therapy ?? Service Comments #1: [facility] will contact you to set up a visit time after discharge. Please call [phone] if you don't hear from them. ?? Pulmonary Rehab Status?? Pulmonary Rehab Discharge Status?? Respiratory Rate: 18 br/min ? Common Emergency Awareness Tips IS IT A STROKE? Act FAST and Check for these signs: FACE Does the face look uneven? ARM Does one arm drift down? SPEECH Does their speech sound strange? TIME Call at any sign of stroke ?? Heart Attack Signs Chest discomfort: Most heart attacks involve discomfort in the center of the chest and lasts more than a few minutes, or goes away and comes back. It can feel like uncomfortable pressure, squeezing, fullness or pain. Discomfort in upper body: Symptoms can include pain or discomfort in one or both arms, back, neck, jaw or stomach. Shortness of breath: With or without discomfort. Other signs: Breaking out in a cold sweat, nausea, or lightheaded. Remember, MINUTES DO MATTER. If you experience any of these heart attack warning signs, call to get immediate medical attention! ?? Smoking can increase your chances of developing chronic health problems and can cause harmful effects to other family members in your house. If you smoke, you are strongly encouraged to quit. Please call [facility] at [phone] or [phone] ([phone]) or log in to [email or web address] for referrals to smoking cessation programs. ?? The National Suicide Prevention Hotline is available 09/04 if you or someone you know needs to find a reason to keep living. By calling 9-697-601-[employer] (2183) you'll be connected to a skilled, trained counselor at a crisis center in your area. INPATIENT DISCHARGE INSTRUCTIONS SIGNATURE PAGE JAY MONTIEL Location:[facility] Registration Date and Time:12/12/2022 10:29 EDT Primary Care Physician: Fiorella Coronel MD, I TIANA, JAY, have received the above patient education materials/instructions and have verbalized understanding. If ambulance or transport services are being used I further acknowledge being given a choice of service. ?? If you need to contact me, please call me at this number: . 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 Yazmin Cazares [facility] Summary: The patient was admitted for surgery as above. Surgery was uneventful. Pain has been controlled on Oxycodone 5-10mg q4h prn and acetaminophen 1000mg q8h scheduled. DVT prophylaxis in the hospital was Aspirin 325 daily, and this will be continued for 2 weeks postoperatively. Dressing is clean, dry and intact. Calves are soft and nontender. Able to ambulate with PT/OT without difficulty. Labs have been satisfactory during the course of stay: Hb 11.4, electrolytes within normal limits. Hospital course has been unremarkable. Anticipates being discharged to home today. The patient will follow up with Dr. Cazares at [facility] in approximately 2 weeks. Discharge Medications: Italics = NEW medications Acetaminophen (acetaminophen 325 mg oral tablet) 975 Milligram 3 tablet By Mouth Every 8 hours Alendronate (alendronate 70 mg oral tablet) 1 tab(s) 70 Milligram By Mouth Every week amiTRIPTYLINE (amitriptyline 50 mg oral tablet) 1 tab(s) 50 Milligram By Mouth Daily at bedtime Aspirin (aspirin 325 mg oral delayed release tablet) 325 Milligram By Mouth Daily Cholecalciferol By Mouth Citalopram 20 Milligram By Mouth Daily Clonazepam 1 By Mouth 2 times a day as needed Anxiety Docusate (docusate sodium 100 mg oral capsule) 100 Milligram 1 capsule By Mouth 2 times a day Gabapentin 300 Milligram By Mouth 2 times a day Lisinopril 40 Milligram By Mouth Daily Loratadine 10 Milligram By Mouth Daily as needed Sinus Symptoms Oxycodone (oxyCODONE 5 mg oral tablet) 5 Milligram 1 tablet By Mouth Every 4 hours as needed Pain ,Moderate Oxycodone (oxyCODONE 5 mg oral tablet) 10 Milligram 2 tablet By Mouth Every 4 hours as needed Pain , Severe Rosuvastatin (rosuvastatin 20 mg oral tablet) 1 tab(s) 20 Milligram By Mouth Daily Discharge Instructions: Activity: - Wear the sling to your operated arm at all times with no range of motion of the shoulder allowed for the first 6 weeks postop. - Do not bear weight (no pushing, pulling or lifting) with the operated arm for at least 12 weeks postoperatively - When in bed or a chair, place a small blanket or pillow BEHIND (not underneath) the elbow to keepthe arm in front of your body - Okay to move the elbow/wrist/fingers as tolerated - Intermittently apply ice to the shoulder for 20 minutes as needed for pain. Keep a close eye on your skin to prevent ice lozano while your limb is still numb. Dressings: Keep the Aquacel dressing placed in the operating room in place for 7 days (until 12/19/2022). After 12/19/2022, you may remove the dressings and leave the incision open to air. If the Aquacel dressing becomes saturated or non-adherent, you may remove and replace with clean dry dressings, which should be changed daily until 12/19/2022. Leave the underlying steri-strips in place to falloff on their own. Bathing/showering: - You should keep your incision dry until 7 days postop (until 12/19/2022) - The postop dressing you have on currently is waterproof as long as the edges are stuck down, and you may shower with this in place. If this dressing becomes soiled or the edges start to peel up, you may replace with a new waterproof dressing (can be obtained from the pharmacy) or simply leave theright shoulder out of the water while showering. - After 12/19/2022, you may remove dressings and shower normally: allow soapy water to run over theincision but do not scrub. - Do not submerge the incision under water unti 4 weeks postop. - You may take your sling off to shower but may only let the arm dangle at your side while the sling is off. - It may be easier to sponge bathe for now. Medications: - You have been prescribed Oxycodone, a short-acting narcotic medication. Take this medication for pain as needed. Try to taper your use over the next week or two as your post-operative pain improves. - In addition, you should take Acetaminophen (Tylenol). Take this medication around the clock (but do not exceed 3 grams in a 24-hour period). This will help with your pain and decrease your need forthe narcotic medications. - Avoid anti-inflammatory type medications (also called NSAIDs) including ibuprofen, motrin, Advil,naproxen, naprosyn, and Alleve for the next 3 months. There is some evidence that these may slow bone remodeling, which would inhibit healing. - The pain medication you are on can cause constipation, so increase your intake of fluids and fiber while you are taking them. You may also take an tend-mfz-hcvlcjz stool softener, like Docusate or Senokot, to facilitate a bowel movement. - If you need a renewal on your narcotic pain medication, you need to give the Orthopedic clinic enough time to process your request. This can take up to three days, so plan accordingly. - No driving is allowed if taking narcotic pain medications. Anticoagulation: You have also been prescribed Aspirin. This medication is being used for its blood-thinning properties to help prevent blood clots while you are less mobile and active. Take this medication 325mg once a day for 14 days. Again, this medication has not been prescribed as a pain-reliever, so you should take it even when you are feeling comfortable. After 14 days, you may resume youraspirin at your usual dose, if you were taking it prior to surgery. * Yazmin Cazares MD, V: PERFORM, SIGN, VERIFY Event Display: Discharge/Transfer Note Hospital Authored Date: [id number] Patient: JAY MONTIEL Age: 77 years Sex: Female : 1945 Associated Diagnoses: None Author: Yazmin Cazares MD, I certify that this patient is under my care and that I or an an allowed non- physician practitionerworking with me, had a heje-fo-arht encounter with the patient on this date: 12/13/2022. 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 Nursing: Medication management (reconciliation, teaching), Home safety evaluation. Physical Therapy: Functional mobility training, Falls prevention training. Occupational Therapy: ADL Management, Fall prevention training. Homebound due to: Inability to leave home without assistance/supervision, Impaired transfers. Physician Signature: Yazmin Cazares MD, V . Hospital Progress note * Catie Whalen RN: PERFORM, SIGN, VERIFY Event Display: Progress Note Hospital Authored Date: [id number] Patient: JAY MONTIEL Age: 77 years Sex: Female : 1945 Associated Diagnoses: None Author: Catie Whalen RN Findings Narrative/Incidental Patient alert, oriented, yemeni speaking female. Peripheral IV removed from left arm with tip intact. 5mg Oxycodone given for arm pain #5/10 -- all discharge instruction read to the family. They understand. was notified for soft blood pressure in the 80's, Lisinipril held. Patient not symptomatic. Familt transported patient off unit in wheelchair. Will continue to monitor/. Discharge Information Case Management Discharge Plan : Case Management Discharge Plan Data 12/14/2022 9:53 EDT Discharge Level of Care at Discharge Homehealth/VNA 12/13/2022 15:45 EDT Discharge Level of Care at Discharge Homehealth/VNA Name of Agency #1 [facility] Agency [place] [place] [facility]1 [phone] Service Categories #1 Occupational Therapy, Physical Therapy Service Comments #1 [facility] will contact you to set up a visit time after discharge. Please call [phone] if you don't hear from them. Rehabilitation Discharge : Rehab Discharge Index 12/13/2022 9:17 EDT Comments on treatment indicated 77 yo French speaking F s/p R reverse TSA on 12/[address] Cazares. NWB R UE with sling, NO R shoulder ROM, okay for R elbow/wrist/finger ROM, pillow behind elbow at rest to prevent shoulder extenison. PT for therex, transfers, gait ,balance. Distance pt will ambulate 50 ft with cane Full chart review completed Yes Hospital course see comment Other findings see comment Plan of care PT Gait training, Transfer training, Therapeutic exercise, Functional Activities, Balance training 12/13/2022 8:55 EDT Comments on treatment indicated adls functl mob safety pt edu UE function Full chart review completed Yes Hospital course POD#1 s/p Right reverse total shoulder arthroplasty * Salvador Brink RN: PERFORM, SIGN, VERIFY Event Display: Progress Note Hospital Authored Date: Patient: JAY MONTIEL Age: 77 years Sex: Female : 1945 Associated Diagnoses: None Author: Salvador Brink RN Findings Problem Related to Alteration in Comfort : Alteration in Comfort/new 12/14/2022 1:00 EDT Alteration in Comfort Related to Surgery Goals & Outcomes: Comfort Pt will report acceptable level of comfort & pain control, Pt will state importance of adhering to pain strategy regime, Pt will demonstrate necessary skills to manage pain, Non-verbal indicators will indicate comfort/pain control Interventions Implemented: Comfort Assess pain using appropriate pain scale/tools, Assess aggravating factors & prevent them accordingly, Assess alleviating factors & promote them accordingly Goals/Interventions, Comfort Yes Comfort, Problem Start 12/12/2022 21:00 Reviewed plan with, Comfort Patient Patient Progression, Comfort Pt progressing according to plan Comfort, Problem Ongoing Yes . Alteration in Musculoskeletal : Alteration in Musculoskeletal Func/new 12/14/2022 1:00 EDT Alteration in Musculoskeletal Related to Mobility, Orthopedic Procedure Goals & Outcomes, Musculoskeletal Affected extremity will maintain color/motion/sensation, Pt able to perform ADL's to best of ability, Pt will ambulate safely with assistive device, Pt will be free from complications of immobility, Pt will report acceptable level of comfort/pain relief Interventions, Musculoskeletal Monitor patients ambulation status, monitor Color/Motion/Sensation, Encourage deep breathing & coughing exercises, Teach & Encourage use of Incentive spirometer, Teach pt/caregiver on use of pain scale, Teach Pt/caregiver on safety precautions Goals/Interventions, Musculoskeletal Yes Musculoskeletal, Problem Start 12/12/2022 21:00 Reviewed Plan with, Musculoskeletal Patient Patient Progression, Musculoskeletal Pt progressing according to plan . Narrative/Incidental As per plan of care. Post-op day 2, right shoulder reverse total shoulder arthroplasty. Alert and oriented x3, primarily French speaking, with bed alarm for safety. Right shoulder aquacel dressing CDI, +cms, NWB, with sling and swathe. Taking scheduled acetaminophen and prn oxycodone for pain withrelief. Ambulating with 1 assist, gait steady. Voiding adequate amount of clear yellow urine. On aspirin and wearing compression boots for DVT prophylaxis. Sleeping comfortably at this time. Will continue to assess and monitor pain, CMS to RUE, and safety.. * Kaleigh Oviedo RN: VERIFY, PERFORM, SIGN Event Display: Progress Note Hospital Authored Date: [id number] Patient: JAY MONTIEL Age: 77 years Sex: Female : 1945 Associated Diagnoses: None Author: Kaleigh Oviedo RN Findings Problem Related to Alteration in Musculoskeletal : Alteration in Musculoskeletal Func/new 12/13/2022 11:00 EDT Alteration in Musculoskeletal Related to Orthopedic Procedure Goals & Outcomes, Musculoskeletal Affected extremity will maintain color/motion/sensation, Pt able to perform ADL's to best of ability, Pt will ambulate safely with assistive device, Pt will be free from complications of immobility, Pt will report acceptable level of comfort/pain relief Interventions, Musculoskeletal monitor Color/Motion/Sensation, Teach pt/caregiver on use of pain scale Goals/Interventions, Musculoskeletal Yes Musculoskeletal, Problem Start 12/12/2022 21:00 Reviewed Plan with, Musculoskeletal Patient Patient Progression, Musculoskeletal Pt progressing according to plan . Narrative/Incidental Pt a&ox3, spainish speaking, family interpreting at bedside, lungs clear, i/s encouraged, Pt denies cp or sob, abd soft, +bs +flatus, ashley PO, LBM 12/12, right shoulder dressing cd&i, sling in place, OOB with assist. ASA for DVT prophylaxis, Fingers warm and mobile + radial pulse, voiding in bathroom, Needs PT/OT eval, Good pain control with oxy 5-10 and tylenol, Pt rates pain 6-7/10, but resting comfortably in bed at this time. Plan for discharge home today if pt clears OT/PT.. XR Shoulder - right Single view * [facility] , CIS S: TRANSCRIBE Smith Maradiaga MD: VERIFY Event Display: Result: Authored Date: Shoulder 1 View Right, 1 views Reason: Other:; S p Right reverse total shoulder arthroplasty; Clinical Question(s): Dislocation COMPARISON: None. 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 There is mild atelectasis within the right lower lobe. IMPRESSION: Intact right reversed as to prosthesis without complications. WSN: [id number] Ordering Physician: Yazmin Cazares V Dictated By: Smith Maradiaga MD Dictated Date/Time: 12/12/22 2:41 pm Reviewed By: Smith Maradiaga MD Signed By: Smith Maradiaga MD Signed Date/Time: 12/12/22 2:41 pm Transcribed By: RAVEN Transcribed Date/Time: 12/12/22 2:40 pm Patient Care team information Care Team Personnel Name: Salvador Brink RN Position: S RN Member Role: Primary Care Nurse Name: Fiorella Coronel MD Position: Reference Physician Member Role: PCP Address: Address: [address] [place] [address]- Name: Kaleigh Oviedo RN Position: S RN Member Role: Primary Care Nurse Name: Catie Whalen RN Position: S RN Member Role: Primary Care Nurse Care Team Related Persons Name: ASHLEY FILI Address: home [address] [place] [address] Name: ROS HONEYCUTT Address: [address] [place] [address]
--- NOTE | 2023-09-28 09:04 | P.CONAN_ITS ---
Documented by User: Jessika Castelan NP 09/28/23 09:07 HPI - Anesthesia Eval Consult details Narrative: 78yo F for Right Excision Flank Mass PMFSH Active Problems Active Problems: All Active Problems (Updated 09/25/23 @ 07:30 by Keri Reyes RN) Right flank mass (Acute) Torticollis (Acute) Sebaceous cyst (Acute) Face lesion (Acute) Dysuria (Acute) Annual physical exam (Acute) Renal cyst (Acute) Generalized anxiety disorder (Acute) Rotator cuff injury (Acute) Allergic rhinitis (Acute) Osteopenia (Acute) Seborrheic dermatitis of scalp (Acute) Osteoarthritis, knee (Acute) Shoulder subluxation, right (Acute) History of renal calculi (Acute) GERD (gastroesophageal reflux disease) (Acute) Hypertension (Acute) Hypercholesterolemia (Acute) Migraine (Acute) Impaired fasting glucose (Acute) Obesity (BMI 30-39.9) (Acute) Past Medical History Medical History Nephrolithiasis Knee pain, right Rotator cuff arthropathy of both shoulders Shoulder subluxation, right Subconjunctival hemorrhage of right eye Annual physical exam Eczematous dermatitis Bilateral hand numbness Urinary incontinence Shoulder pain, bilateral Osteoarthritis, knee Cataract Carpal tunnel syndrome Gout Anxiety and depression GERD (gastroesophageal reflux disease) Hypertension Hypercholesterolemia History of renal calculi Osteoporosis Migraine Impaired fasting glucose Peripheral vascular disease Obesity (BMI 30-39.9) Fibromyalgia Family History Family History Father CVD (cardiovascular disease) Stroke Mother Diabetes Hypertension Maternal Aunt Breast cancer Brother Intestinal cancer Family history of problems with anesthesia: No Surgical History Surgical History Hx of blepharoplasty H/O colonoscopy History of shoulder surgery (12/12/22) History of cataract surgery History of carpal tunnel release History of Problems with Anesthesia: No Social History Social History Housing: Apartment Alcohol intake: never Patient Tobacco Use Status: Never used Tobacco e-Cigarette/Vaping Use: Never Used Second Hand Smoke Exposure: No Are you DNR?: No Advance Directives: No Advance Directives Information Provided: Yes Recently lost weight without trying: No Nutrition Risks: No Nutritional Risk service: No Current occupational status: disabled Current occupation: Rt handed Cognitive needs: No Hearing needs: No Vision needs: Yes Meds Allergies Allergy/AdvReac Type Severity Reaction Status Date / Time Penicillins [PENICILLINS] Allergy Intermediate RASH,ITCHIN Verified 10/01/23 06:45 G hydrochlorothiazide AdvReac Intermediate dizzy Verified 10/01/23 06:45 Home Medications Medication Instructions Recorded Confirmed Last Taken Type amitriptyline 50 mg tablet 50 mg PO BEDTIME 07/26/20 09/26/23 Unknown History citalopram 20 mg tablet 20 mg PO DAILY 02/11/21 09/26/23 Unknown History clonazepam 1 mg tablet 0.5 mg PO DAILY PRN Anxiety 02/11/21 09/26/23 Unknown History acetaminophen 650 mg 650 mg PO BID PRN Pain 09/25/23 09/26/23 Unknown History tablet,extended release (Tylenol Arthritis Pain) calcium carbonate 500 mg-vitamin 1 tab PO BID 09/25/23 09/26/23 Unknown History D3 3.125 mcg (125 unit) tablet famotidine 40 mg tablet 40 mg PO DAILY 09/25/23 09/26/23 Unknown History fluticasone propionate 50 1 spray intranasal DAILY 09/25/23 09/26/23 Unknown History mcg/actuation nasal spray,suspension (Flonase Allergy Relief) lidocaine 4 %-m.salicyl 20 %-caps 1 ea topical 09/25/23 Unknown History 0.0375 %-menth 10 % topical ointment (Transderm-iQ) peg 3350 240 gram-electrolytes 240 ml PO Q10M 09/25/23 09/25/23 Unknown History 22.72 gram-6.72 g-5.84 g powdr for soln rosuvastatin 20 mg tablet 10 mg PO DAILY 09/25/23 09/26/23 Unknown History Exam Height,Weight and Vital Signs: Height 5 ft 3 in Weight 84.822 kg Pertinent Lab Results Pertinent Lab Results: Laboratory Tests 09/20/23 10:33 WBC 5.9 Hgb 12.2 Hct 37.6 Plt Count 221 Sodium 141 Potassium 4.3 Chloride 105 Carbon Dioxide 30 H BUN 17 H Creatinine 0.84 Narrative Narrative: EKG 11/2022 SR @ 77 Assessment and Plan Assessment Anesthesia Assessment: Chart Reviewed Final Anesthetic Review Family History of Problems with Anesthesia: No History of Problems with Anesthesia: No Documented by User: Emilia Hendrix MD 10/01/23 07:32 [facility] Past Medical History Medical History Nephrolithiasis Knee pain, right Rotator cuff arthropathy of both shoulders Shoulder subluxation, right Subconjunctival hemorrhage of right eye Annual physical exam Eczematous dermatitis Bilateral hand numbness Urinary incontinence Shoulder pain, bilateral Osteoarthritis, knee Cataract Carpal tunnel syndrome Gout Anxiety and depression GERD (gastroesophageal reflux disease) Hypertension Hypercholesterolemia History of renal calculi Osteoporosis Migraine Impaired fasting glucose Peripheral vascular disease Obesity (BMI 30-39.9) Fibromyalgia Family History Family History Father CVD (cardiovascular disease) Stroke Mother Diabetes Hypertension Maternal Aunt Breast cancer Brother Intestinal cancer Surgical History Surgical History Hx of blepharoplasty H/O colonoscopy History of shoulder surgery (12/12/22) History of cataract surgery History of carpal tunnel release Social History Social History Housing: Apartment Alcohol intake: never Patient Tobacco Use Status: Never used Tobacco e-Cigarette/Vaping Use: Never Used Second Hand Smoke Exposure: No Are you DNR?: No Advance Directives: No Advance Directives Information Provided: Yes Recently lost weight without trying: No Nutrition Risks: No Nutritional Risk service: No Current occupational status: disabled Current occupation: Rt handed Cognitive needs: No Hearing needs: No Vision needs: Yes Meds Allergies Allergy/AdvReac Type Severity Reaction Status Date / Time Penicillins [PENICILLINS] Allergy Intermediate RASH,ITCHIN Verified 10/01/23 06:45 G hydrochlorothiazide AdvReac Intermediate dizzy Verified 10/01/23 06:45 Home Medications Medication Instructions Recorded Confirmed Last Taken Type amitriptyline 50 mg tablet 50 mg PO BEDTIME 07/26/20 09/26/23 Unknown History citalopram 20 mg tablet 20 mg PO DAILY 02/11/21 09/26/23 Unknown History clonazepam 1 mg tablet 0.5 mg PO DAILY PRN Anxiety 02/11/21 09/26/23 Unknown History acetaminophen 650 mg 650 mg PO BID PRN Pain 09/25/23 09/26/23 Unknown History tablet,extended release (Tylenol Arthritis Pain) calcium carbonate 500 mg-vitamin 1 tab PO BID 09/25/23 09/26/23 Unknown History D3 3.125 mcg (125 unit) tablet famotidine 40 mg tablet 40 mg PO DAILY 09/25/23 09/26/23 Unknown History fluticasone propionate 50 1 spray intranasal DAILY 09/25/23 09/26/23 Unknown History mcg/actuation nasal spray,suspension (Flonase Allergy Relief) lidocaine 4 %-m.salicyl 20 %-caps 1 ea topical 09/25/23 Unknown History 0.0375 %-menth 10 % topical ointment (Transderm-iQ) peg 3350 240 gram-electrolytes 240 ml PO Q10M 09/25/23 09/25/23 Unknown History 22.72 gram-6.72 g-5.84 g powdr for soln rosuvastatin 20 mg tablet 10 mg PO DAILY 09/25/23 09/26/23 Unknown History Exam Airway Mallampati Class: II TM Dist: >3cm Neck ROM: Full Denture: Upper and Lower Loose/Missing/Broken Teeth: Yes, Upper and Lower Heart: RRR Lungs: CTA Assessment and Plan Assessment Anesthesia Assessment: Anesthesia Plan Discussed Final Anesthetic Review NPO: Yes ASA Class: II Final Preanesthetic Review: Meds/Allgs Chart Reviewed, Consent Obtained/Reviewed and Anes Risks/Benef Reviewed Patient Risk: Low Procedure Risk: Low Anesthetic Plan Anesthetic Plan: GA Disposition: Standard PACU
[2023-10-01] VITALS (8 sets, daily range): BP systolic 151–165; BP diastolic 66–78; PULSE 66–78; RESP 16–18; TEMP 36.1–37; O2SAT 96–100; BMI 33.5
[2023-10-01] MEDS: Lactated Ringers 1,000 ML 100 ML IVCONT (06:45)
[2023-10-01] MEDS: vancomycin HCL 1,500 MG in 0.9 % Sodium Chloride 500 ML 333.33 MG IV (06:45)
--- NOTE | 2023-10-01 08:10 | W.PM.OPN ---
Operative Note Operative Note Date of Service: 10/01/23 Narrative: Preoperative diagnosis:Lipoma right flank Postoperative diagnosis: same Procedure: excision of lipoma right flank Surgeon: Ponce Handy MD Shipping & Receiving Lead: Sveta Ingram PA-C, LUIS ENRIQUE Atwood Anesthesia: general LMA Indications for procedure: 78-year-old female patient with a painful soft tissue mass in the right flank measuring approximately 4-5 cm in diameter. Operative findings: Lipoma right flank 4 cm Specimen: lipoma right flank Estimated blood loss: less than 2 mL Complications: none Procedure details: patient was brought to the OR and placed in a supine position. After administering general anesthesia the patient was placed in a left lateral decubitus position. A surgical time-out was called the consent confirmed. Patient received preoperative antibiotics and Venodyne boots were placed. The patient's right flank was prepped with ChloraPrep and draped in a sterile fashion. Local anesthesia consisting of 0.5% Sensorcaine was infiltrated in a transverse fashion directly over the lipoma. Incision was then made with a scalpel and carried out through subcutaneous tissue. The lipoma was identified and dissected using blunt dissection from the surrounding subcutaneous tissue. Hemostasis was then assured using electrocautery. The specimen was passed off the table and sent to pathology for further examination. Dermis was then reapproximated using interrupted 3-0 Polysorb sutures. Skin was closed using a running subcuticular 4-0 Polysorb suture. Steri-Strips, 2 x 2 gauze and Tegaderm were then applied. The patient tolerated the procedure well. Sponge, instrument, and needle counts were reported as correct. The patient was transferred to PACU in stable condition.
--- NOTE | 2023-10-01 08:13 | MHC.SHP ---
Pre-Procedural Eval Section A Date of Service: 10/01/23 The patient is an INPATIENT: No Changes since office visit: Yes Patient answered all questions; No Cold of Flu in the past 2 weeks, No New Medical Problems and No Changes in Medication The History & Physical has been completed within 30 days and I have reviewed it.: Yes Section B Chief Complaint: Intra-abdominal and pelvic swelling, mass and lump Allergies: Allergies Allergy/AdvReac Type Severity Reaction Status Date / Time Penicillins [PENICILLINS] Allergy Intermediate RASH,ITCHIN Verified 10/01/23 06:45 G hydrochlorothiazide AdvReac Intermediate dizzy Verified 10/01/23 06:45 Plan Diagnosis/Plan: Unchanged I have reviewed the history and physical and performed a pertinent physical examination on my patient. No changes have occurred unless specified. Time Spent With Patient Time: Total time managing care of this patient today ____ minutes.
== END 2023-10-01 10:00 ==
PROVIDERS: PCP Internal Medicine; Visit Provider Surgery
PROC: (CPT 21931; principal; 2023-10-01 07:30)
DX: D17.1 Benign lipomatous neoplasm of skin and subcutaneous tissue of trunk (principal); I10 Essential (primary) hypertension; E78.00 Pure hypercholesterolemia, unspecified; M81.0 Age-related osteoporosis without current pathological fracture; M79.7 Fibromyalgia; M10.9 Gout, unspecified; F41.8 Other specified anxiety disorders; I73.9 Peripheral vascular disease, unspecified; R73.01 Impaired fasting glucose; Z79.51 Long term (current) use of inhaled steroids; Z79.899 Other long term (current) drug therapy; Z88.0 Allergy status to penicillin; Z88.8 Allergy status to other drugs, medicaments and biological substances
CPT/HCPCS: 21931; 88304; J0665; J1100; J2371; J2405; J2704; J3010; J3371

== ENCOUNTER 2023-10-03 09:32 | Outpatient (AMB) | payer MEDICARE, SELFPAY ==
[2023-10-03 10:09] VITALS: BP 152/78; PULSE 77; O2SAT 98; BMI 33.7
--- NOTE | 2023-10-03 10:09 | MHC.PC.OV ---
Vital Signs 10/03/23 10:09 Height 5 ft 3 in Weight 190 lb BMI 33.7 BP 152/78 H Blood Pressure Location Lt brachial Position Sitting Pulse 77 Pulse Source Pulse Oximeter Pulse Oximetry (%) 98 Oxygen Delivery Method Room Air Intake Visit Reasons: PE Allergies Penicillins [PENICILLINS] Allergy (Intermediate, Verified 10/03/23 10:10) RASH,ITCHING hydrochlorothiazide Adverse Reaction (Intermediate, Verified 10/03/23 10:10) dizzy Medication List - Last Reconciled 10/03/23 by Fiorella Coronel MD acetaminophen ER (Tylenol Arthritis Pain) 650 mg PO BID PRN alendronate 70 mg PO QWEEK amitriptyline 50 mg PO BEDTIME calcium carbonate-vitamin D3 500 mg-3.125 mcg (125 unit) 1 tab PO BID cholecalciferol (vitamin D3) 125 mcg PO DAILY citalopram 20 mg PO DAILY clonazepam 0.5 mg PO DAILY PRN compress.stocking,knee,reg,lrg As directed cyanocobalamin (vitamin B-12) 1,000 mcg PO DAILY 90 days cyclobenzaprine 5 mg PO TID PRN diclofenac sodium 1% (Voltaren Arthritis Pain) 4 grams topical QID fluticasone propionate 50 mcg/actuation (Flonase Allergy Relief) 1 spray intranasal DAILY gabapentin 300 mg PO BID lidocain-me.evaiqoi-ukzm-ttbrg 4-20-0.0375-10 % (Transderm-iQ) 1 ea topical lisinopril 40 mg PO DAILY loratadine 10 mg PO DAILY 90 days [Poise PAds [id number] As directed] [Reclining Chair As directed] rosuvastatin 10 mg PO DAILY Tobacco use date assessed: 10/03/23 Fall risk assessment: No Falls in past year Last assessed Fall Risk: 10/03/23 Dental Screening Dental Screen Date: 10/03/23 Did you have a dental visit in the last 12 months?: No Did you have a dental problem in the last 6 months where you did not have access to dental care?: No Was dental information given to patient?: Patient has dentist HPI PE HPI Details 78-year-old obese female with impaired glucose tolerance coming in for physical exam last seen in June 2023. Patient's colonoscopy is up-to-date mammogram is up-to-date July 2023 bone density is up-to-date June 2023. Review of the note 10/01/2023 patient had a procedure under Dr. Handy for excision of the lipoma right flank. September 2023 had colonoscopy done under Dr. Sorto showing normal colonoscopy. [facility] Medical History Nephrolithiasis Knee pain, right Rotator cuff arthropathy of both shoulders Shoulder subluxation, right Subconjunctival hemorrhage of right eye Annual physical exam Eczematous dermatitis Bilateral hand numbness Urinary incontinence Shoulder pain, bilateral Osteoarthritis, knee Cataract Carpal tunnel syndrome Gout Anxiety and depression GERD (gastroesophageal reflux disease) Hypertension Hypercholesterolemia History of renal calculi Osteoporosis Migraine Impaired fasting glucose Peripheral vascular disease Obesity (BMI 30-39.9) Fibromyalgia Surgical History Hx of blepharoplasty H/O colonoscopy History of shoulder surgery (12/12/22) History of cataract surgery History of carpal tunnel release Family History Father CVD (cardiovascular disease) Stroke Mother Diabetes Hypertension Maternal Aunt Breast cancer Brother Intestinal cancer Social History Housing: Apartment Alcohol intake: never Patient Tobacco Use Status: Never used Tobacco e-Cigarette/Vaping Use: Never Used Second Hand Smoke Exposure: No service: No Current occupational status: disabled Current occupation: Rt handed Cognitive needs: No Hearing needs: No Vision needs: Yes Questionnaire PHQ-9 Over the last 2 weeks, how often have you been bothered by any of the following problems? 1. Little interest or pleasure in doing things: not at all 2. Feeling down, depressed, or hopeless: several days 3. Trouble falling or staying asleep, or sleeping too much: not at all 4. Feeling tired or having little energy: not at all 5. Poor appetite or overeating: not at all 6. Feeling bad about yourself - or that you are a failure or have let yourself or your family down: not at all 7. Trouble concentrating on things, such as reading the newspaper or watching television: not at all 8. Moving or speaking so slowly that other people could have noticed. Or the opposite - being so fidgety or restless that you have been moving around a lot more than usual: not at all 9. Thoughts that you would be better off or of hurting yourself in some way: not at all Total score: 1 Depression Screening Interpretation: Negative Depression Screening Done: Yes Source: Developed by Drs. Christopher Lynne, Mera Kebede, Ron Flores and colleagues, with an educational wicho from [email or web address]. Thrive Questionnaire Date Thrive assessed: 10/03/23 I am a: Patient What is your living situation today?: I have a steady place to live Within the past 12 months, did the food you bought not last and you didn't have the money to get more?: Never true Within the past 12 months, did you worry whether your food would run out before you got money to buy more?: Never true Do you have trouble paying for medicines?: No Do you have trouble getting transportation to medical appointments?: No Do you have trouble paying your heating and electricity bill?: No Do you have trouble taking care of your child, family member or friend?: No Do you have trouble with day-to-day activities such as bathing, preparing meals, shopping, managing finances, etc.?: No Are you currently unemployed and looking for a job?: No Are you interested in more education?: No WAGNER-7 AMB Questionnaire WAGNER-7 Date WAGNER - 7 assessed: 10/03/23 Feeling nervous, anxious, or on edge: 0 = Not at all Not being able to stop or control worryin = Not at all Worrying too much about different things: 0 = Not at all Trouble relaxin = Not at all Being so restless that it is hard to sit still: 0 = Not at all Becoming easily annoyed or irritable: 0 = Not at all Feeling afraid as if something awful might happen: 0 = Not at all Total WAGNER-7 score (0-4 normal; 5-9 mild; 10-14 moderate; 15-21 severe): 0 Source: Developed by Drs. Christopher Lynne, Mera Kebede, Ron Flores and colleagues, with an educational wicho from [email or web address]. Review of Systems Const Denies poor appetite and Denies weakness Eyes Denies no additional complaints ENT Reports Normal hearing present, Denies dizziness, Denies nasal congestion, Denies tinnitus and Denies sore throat Card Denies chest pain, Denies syncope, Denies rapid heart rate and Denies dyspnea Resp Denies cough and Denies dyspnea GI Denies change in stool character, Reports constipation, Denies diarrhea, Denies nausea and Denies vomiting Denies urinary frequency, Denies difficulty voiding and Denies dysuria Neuro Reports Normal hearing present, Denies confusion, Denies dizziness, Denies syncope and Denies weakness Psych Denies confusion Physical exam (Primary Care) Vital Signs: Last Vital Signs Pulse 77 10/03/23 10:09 BP 152/78 H 10/03/23 10:09 Pulse Ox 98 10/03/23 10:09 Oxygen Delivery Method Room Air 10/03/23 10:09 BMI result Body Mass Index 33.7 Tobacco/Smoking Status: Tobacco use Status Tobacco use date assessed 10/03/23 10/03/23 10:11 Patient Tobacco Use Status Never used Tobacco 10/03/23 10:11 e-Cigarette/Vaping Use Never Used 10/03/23 10:11 PHQ-9: PHQ-9 Score PHQ-9: Total score 1 10/03/23 10:11 Depression Screening Interpretation: Negative Thrive Assessment: Date of Thrive Assessment Date Thrive assessed 10/03/23 10/03/23 10:11 Const General: No confusion Orientation/consciousness: No confusion HENMT Head: Yes normocephalic Ears: external ears normal and TM's normal bilaterally Face and sinus: Yes normal facial exam Mouth: moist mucous membranes Throat: Yes tonsils normal Eyes Conjunctivae: conjunctivae normal Pupils: Equal, round and reactive pupils present and Pupil accommodation reflex normal Direct Ophthalmoscopy: normal light reflex Neck Neck: No lymphadenopathy Thyroid: Thyroid normal Chest Chest palpation & inspection: normal inspection of the chest Resp Effort & Inspection: normal respiratory effort and no audible wheezes Auscultation: clear to auscultation bilaterally, no crackles, no wheezes and lung sounds not diminished Cardio Rate: regular rate Rhythm: regular rhythm Peripheral pulses: radial pulses present and dorsalis pedis present GI Palpation (GI): no masses Auscultation: normal bowel sounds and normoactive bowel sounds Rectal Exam - Female: deferred Skin General skin exam: no rashes or lesions noted Rashes: no rashes Neuro General: No confusion Cranial nerves: Yes Equal, round and reactive pupils present and Yes Normal hearing present Cognition (Neuro): normal cognition Gait exam (Neuro): Normal gait present Motor exam (neuro): 5/5 motor strength present throughout Deep tendon reflexes (DTR's): Right brachioradialis reflex intensity grade: 2+, Left brachioradialis reflex intensity grade: 2+, Right patellar reflex intensity grade: 2+ and Left patellar reflex intensity grade: 2+ Extrem General: No edema Assessment and Plan Assessment & Plan (1) Annual physical exam: Code(s): Z00.00 - Encounter for general adult medical examination without abnormal findings (2) Obesity (BMI 30-39.9): Code(s): E66.9 - Obesity, unspecified Plan: Diet and exercise (3) Impaired fasting glucose: Code(s): R73.01 - Impaired fasting glucose Plan: Decrease the amount of carbohydrate intake, pasta, bread, rice and potatoes are all sugar and that is aside from all the sweet stuff, remember that fruits are good but they are Sweet also. (4) Hypercholesterolemia: Code(s): E78.00 - Pure hypercholesterolemia, unspecified Plan: Avoid fried foods, chicken skin, eggs, butter margarine, pastries and meat. Be it pork or beef they have a lot of cholesterol LDL goal of less than 130 and triglyceride of less than 150 on rosuvastatin 10 mg once a day (5) Hypertension: Code(s): I10 - Essential (primary) hypertension Plan: Continue with blood pressure medication. Decrease salt intake and exercise takes lisinopril 40 mg once a day. admits to forget med intake today (6) GERD (gastroesophageal reflux disease): Code(s): K21.9 - Gastro-esophageal reflux disease without esophagitis Qualifiers: Esophagitis presence: without esophagitis Qualified Code(s): K21.9 - Gastro-esophageal reflux disease without esophagitis Plan: Avoid the foods that causes that usually spicy foods, tomato products, juices, coffee, soda and foods that your sensitive to. After eating do not lie down, allow 3-4 hours before in lie down. And keep the head of bed above 30 degrees to avoid the acid from going up. (7) Generalized anxiety disorder: Comment: [facility] Code(s): F41.1 - Generalized anxiety disorder Plan: Continue with counseling and therapy Orders: Orders Comprehensive Met. Panel Today R73.01 - Impaired fasting glucose Complete Blood Count Auto Diff Today R73.01 - Impaired fasting glucose Lipid Panel Today E78.00 - Pure hypercholesterolemia, unspecified Thyroid Stimulating Hormone Today E78.00 - Pure hypercholesterolemia, unspecified Free T4 (Free Thyroxine) Today E78.00 - Pure hypercholesterolemia, unspecified Vitamin B12 and Folate Today E78.00 - Pure hypercholesterolemia, unspecified Hemoglobin A1c Today R73.01 - Impaired fasting glucose Coding Level of Care Code Est Pt Prev Care >65y(49919) Diagnoses Annual physical exam Z00.00 Obesity (BMI 30-39.9) E66.9 Impaired fasting glucose R73.01 Hypercholesterolemia E78.00 Essential hypertension I10 Gastroesophageal reflux disease without esophagitis K21.9 Esophagitis presence: without esophagitis Generalized anxiety disorder F41.1 Additional Codes PHQ-9 - 09870 - PHQ-9 Billing: ([id number])
== END 2023-10-03 11:19 | disposition home or self-care (01) ==
PROVIDERS: Visit Provider Internal Medicine
DX: Z00.00 Encounter for general adult medical examination without abnormal findings (principal); E66.9 Obesity, unspecified; Z68.33 Body mass index [BMI] 33.0-33.9, adult; R73.01 Impaired fasting glucose; E78.00 Pure hypercholesterolemia, unspecified; I10 Essential (primary) hypertension; K21.9 Gastro-esophageal reflux disease without esophagitis; F41.1 Generalized anxiety disorder
CPT/HCPCS: 99397

== ENCOUNTER 2023-10-09 09:38 | Outpatient (AMB) | payer OTHER, SELFPAY ==
--- NOTE | 2023-10-09 09:53 | MHC.OFFVIS ---
Intake Vital Signs 10/09/23 09:59 Height 5 ft 3 in Weight 190 lb BMI 33.7 BP 185/76 H Blood Pressure Location Lt brachial Position Sitting Pulse 80 Intake Visit Reasons: S/p Exc right flank mass Intake Note: Patient is seen in office for post op assessment post excision of lipoma right flank. Pt c/o: denies any concerns, healing as expected surgery:10/01/23 Activities Specialist Required: No Accompanied by: Self / Same As Patient Allergies Penicillins [PENICILLINS] Allergy (Intermediate, Verified 10/09/23 09:59) RASH,ITCHING hydrochlorothiazide Adverse Reaction (Intermediate, Verified 10/09/23 09:59) dizzy Medication List - Last Reconciled 10/09/23 by Ponce Handy MD acetaminophen ER (Tylenol Arthritis Pain) 650 mg PO BID PRN alendronate 70 mg PO QWEEK amitriptyline 50 mg PO BEDTIME calcium carbonate-vitamin D3 500 mg-3.125 mcg (125 unit) 1 tab PO BID cholecalciferol (vitamin D3) 125 mcg PO DAILY citalopram 20 mg PO DAILY clonazepam 0.5 mg PO DAILY PRN compress.stocking,knee,reg,lrg As directed cyanocobalamin (vitamin B-12) 1,000 mcg PO DAILY 90 days cyclobenzaprine 5 mg PO TID PRN diclofenac sodium 1% (Voltaren Arthritis Pain) 4 grams topical QID fluticasone propionate 50 mcg/actuation (Flonase Allergy Relief) 1 spray intranasal DAILY gabapentin 300 mg PO BID lidocain-me.zccbewu-oevi-ghisx 4-20-0.0375-10 % (Transderm-iQ) 1 ea topical lisinopril 40 mg PO DAILY loratadine 10 mg PO DAILY 90 days [Poise PAds [id number] As directed] [Reclining Chair As directed] rosuvastatin 10 mg PO DAILY HPI HPI Comments History of Present Illness Details Patient returns 1 week following excision of a large lipoma of the right flank. She tolerated the procedure well and denies any ongoing symptoms. Pathology confirmed a lipoma. [facility] Medical History (Updated 10/03/23 @ 10:51 by Fiorella Coronel MD) Nephrolithiasis Knee pain, right Rotator cuff arthropathy of both shoulders Shoulder subluxation, right Subconjunctival hemorrhage of right eye Annual physical exam Eczematous dermatitis Bilateral hand numbness Urinary incontinence Shoulder pain, bilateral Osteoarthritis, knee Cataract Carpal tunnel syndrome Gout Anxiety and depression GERD (gastroesophageal reflux disease) Hypertension Hypercholesterolemia History of renal calculi Osteoporosis Migraine Impaired fasting glucose Peripheral vascular disease Obesity (BMI 30-39.9) Fibromyalgia Surgical History S/P excision of lipoma (10/01/23) Hx of blepharoplasty H/O colonoscopy History of shoulder surgery (12/12/22) History of cataract surgery History of carpal tunnel release Family History Father CVD (cardiovascular disease) Stroke Mother Diabetes Hypertension Maternal Aunt Breast cancer Brother Intestinal cancer Social History Housing: Apartment Alcohol intake: never Patient Tobacco Use Status: Never used Tobacco e-Cigarette/Vaping Use: Never Used Second Hand Smoke Exposure: No service: No Current occupational status: disabled Current occupation: Rt handed Cognitive needs: No Hearing needs: No Vision needs: Yes Physical Exam Vital Signs: Last Vital Signs Pulse 80 10/09/23 09:59 BP 185/76 H 10/09/23 09:59 BMI result Body Mass Index 33.7 Const General: no acute distress Nutritional Appearance: well nourished Back/Spine/Pelvis Other: Right flank wound is clean, dry, and intact with intact Steri-Strips. No hematoma or seroma is appreciated. Assessment & Plan Assessment & Plan (1) Right flank mass: Code(s): R19.00 - Intra-abdominal and pelvic swelling, mass and lump, unspecified site Plan 78-year-old female patient status post excision of a lipoma of the right flank as a short-stay surgery 1 week ago. Pathology confirmed a lipoma. She tolerated the procedure well her wounds are healing nicely. She should follow up as needed. Coding Level of Care Code Global (24114) Diagnoses Right flank mass R19.00
[2023-10-09 09:59] VITALS: BP 185/76; PULSE 80; BMI 33.7
== END 2023-10-09 10:20 | disposition home or self-care (01) ==
PROVIDERS: PCP Internal Medicine; Visit Provider Surgery
DX: R19.00 Intra-abdominal and pelvic swelling, mass and lump, unspecified site (principal)
CPT/HCPCS: 99024

== ENCOUNTER → 2023-10-09 09:38 | Outpatient (BNVA) | payer OTHER, SELFPAY | PROVIDERS: PCP Internal Medicine; Visit Provider Surgery | DX: Z09 Encounter for follow-up examination after completed treatment for conditions other than malignant neoplasm (principal) | CPT/HCPCS: 99212 ==

== ENCOUNTER 2023-10-12 11:55 | Outpatient (AMB) | payer OTHER, SELFPAY ==
--- NOTE | 2023-10-12 11:56 | A.OFFVIS_ITS ---
Intake Intake Visit Reasons: 1yr follow up/US Intake Note: Patient presents today for a yearly follow up and U/S results. Meds- None Allergies to Antibiotic- Penicillins Blood Thinner- None Assistant Chief Train Dispatcher Required: Yes Assistant Chief Train Dispatcher Name: WILL MULLINS CABRERA Allergies Penicillins [PENICILLINS] Allergy (Intermediate, Verified 10/12/23 12:05) RASH,ITCHING hydrochlorothiazide Adverse Reaction (Intermediate, Verified 10/12/23 12:05) dizzy Medication List - Last Reconciled 10/12/23 by JESSICA Medellin acetaminophen ER (Tylenol Arthritis Pain) 650 mg PO BID PRN alendronate 70 mg PO QWEEK amitriptyline 50 mg PO BEDTIME calcium carbonate-vitamin D3 500 mg-3.125 mcg (125 unit) 1 tab PO BID cholecalciferol (vitamin D3) 125 mcg PO DAILY citalopram 20 mg PO DAILY clonazepam 0.5 mg PO DAILY PRN compress.stocking,knee,reg,lrg As directed cyanocobalamin (vitamin B-12) 1,000 mcg PO DAILY 90 days cyclobenzaprine 5 mg PO TID PRN diclofenac sodium 1% (Voltaren Arthritis Pain) 4 grams topical QID fluticasone propionate 50 mcg/actuation (Flonase Allergy Relief) 1 spray intranasal DAILY gabapentin 300 mg PO BID lidocain-me.rsbaits-lobq-nokzy 4-20-0.0375-10 % (Transderm-iQ) 1 ea topical lisinopril 40 mg PO DAILY loratadine 10 mg PO DAILY 90 days [Poise PAds [id number] As directed] [Reclining Chair As directed] rosuvastatin 10 mg PO DAILY HPI HPI Comments History of Present Illness Details Trina is a pleasant 78 year old Setswana speaking female patient of Dr. Coronel. She has a past medical history of nephrolithiasis, rotator cuff atrophy bilaterally, osteoarthritis, carpal tunnel, anxiety, depression, GERD, hypertension, hypercholesteremia, migraines, peripheral vascular disease, and fibromyalgia. She is being followed up on today via telehealth for her renal cysts and nephrolithiasis. In discussion with the patient today she reports to be doing and feeling well. She denies any urological issues or concerns. Recent renal imaging results reviewed with the patient today. Right kidney with no calculi. Subcentimeter benign-appearing renal cysts, no follow-up imaging recommended per radiology report. Pelviectasis without risa hydronephrosis, similar to prior. Left kidney with no calculi or lesions. Pelviectasis without risa hydronephrosis similar to prior. When asked she denies urinary urgency, urinary frequency, incontinence, nocturia, hematuria, dysuria, foul smelling urine, changes to urinary stream, flank pain, fever, and or chills. She is happy with her current voiding parameters. When asked she reports to be drinking plenty of water daily. She otherwise offers no other issues or concerns at this time. [facility] Medical History Nephrolithiasis Knee pain, right Rotator cuff arthropathy of both shoulders Shoulder subluxation, right Subconjunctival hemorrhage of right eye Annual physical exam Eczematous dermatitis Bilateral hand numbness Urinary incontinence Shoulder pain, bilateral Osteoarthritis, knee Cataract Carpal tunnel syndrome Gout Anxiety and depression GERD (gastroesophageal reflux disease) Hypertension Hypercholesterolemia History of renal calculi Osteoporosis Migraine Impaired fasting glucose Peripheral vascular disease Obesity (BMI 30-39.9) Fibromyalgia Surgical History S/P excision of lipoma (10/01/23) Hx of blepharoplasty H/O colonoscopy History of shoulder surgery (12/12/22) History of cataract surgery History of carpal tunnel release Family History Father CVD (cardiovascular disease) Stroke Mother Diabetes Hypertension Maternal Aunt Breast cancer Brother Intestinal cancer Social History Housing: Apartment Alcohol intake: never Patient Tobacco Use Status: Never used Tobacco e-Cigarette/Vaping Use: Never Used Second Hand Smoke Exposure: No service: No Current occupational status: disabled Current occupation: Rt handed Cognitive needs: No Hearing needs: No Vision needs: Yes Review of Systems Const Reports no additional complaints Eyes Reports no additional complaints ENT Reports no additional complaints Card Reports no additional complaints Resp Reports no additional complaints GI Reports no additional complaints Reports as per HPI Musc Reports no additional complaints Neuro Reports no additional complaints Psych Reports no additional complaints Endo Reports no additional complaints Marvel/Lymph Reports no additional complaints Aller/Immun Reports no additional complaints Physical Exam Const General: cooperative Orientation/consciousness: patient oriented x3 Resp Effort & Inspection: able to speak in complete sentences Neuro General: patient oriented x3 Psych Speech and movement: Clear speech present Attitude: cooperative Thought process: Normal thought process present Thought content: Normal thought content present Insight: Fair insight present (Psych) Judgement: Fair judgement present (Psych) Results Reviewed Results Reviewed: Date of Service: 08/29/23 EXAMINATION: US RETROPERITONEAL LIMITED (RENAL ONLY) FINDINGS: RIGHT KIDNEY: 11.2 x 3.6 x 5.1 cm (SAG x AP x TRV). The kidney is normal in size, contour, and echogenicity. Renal cortical thickness is normal. No renal calculi. Subcentimeter benign-appearing renal cyst, no follow-up imaging recommended. Pelviectasis without risa hydronephrosis, similar to prior. LEFT KIDNEY: 10.7 x 4.1 x 4.2 cm (SAG x AP x TRV). The kidney is normal in size, contour, and echogenicity. Renal cortical thickness is normal. No calculi or focal parenchymal lesions. Pelviectasis without risa hydronephrosis similar to prior. IMPRESSION: Pelviectasis without risa hydronephrosis similar to prior. No nephrolithiasis appreciated. Assessment & Plan Assessment & Plan (1) History of renal calculi: Code(s): Z87.442 - Personal history of urinary calculi (2) Renal cyst: Code(s): N28.1 - Cyst of kidney, acquired Plan Recent renal ultrasound results reviewed with the patient today; as noted above. She currently denies any bothersome urinary issues or concerns. Discussed, educated, and stressed the importance of drinking plenty of water daily. Continue adding 1 oz of lemon juice to water daily. She is happy with her current voiding parameters. Will obtain renal ultrasound in 1 year. Follow-up in 1 year with imaging to be completed prior; or sooner with any issues, concerns, and or questions. Orders: Orders US renal BI 364 Days N20.0 - Calculus of kidney Patient Instructions: The patient had an opportunity to ask questions regarding the treatment plan. All questions were answered. Physical exam, labs, and imaging were discussed and reviewed in detail. As well as risks, benefits, and discussion of treatment choices. No major barriers to understanding were identified. The patient expressed understanding and agreement with the above treatment plan. The patient was made aware they should contact our office by phone for worsening of their current condition, the appearance of new symptoms, or with any questions or concerns. Compliance is encouraged with any medications and follow up testing that is ordered. It is a privilege to be allowed the opportunity to participate in? your urological care.? Again, if you have any questions or concerns If you have any questions or concerns please do not hesitate to contact me. The office is [phone]. This note is constructed using voice recognition software. While every effort has been made to ensure accuracy inspector plumbing errors may have been included. Yours sincerely, [facility] Telehealth Location of provider rendering services: practice address Location of patient: address on file Patient Identification confirmed using: Name, : Yes Telehealth method: voice only (Iphone) Patient verbally consented to treatment: Yes Patient verbally consented to billing insurance company: Yes Patient informed of any privacy concerns related to visit: Yes Minutes spent on Phone/Video with Pt.: 15 Coding Level of Care Code Tele Est Pt Level 3 (04889) Diagnoses History of renal calculi Z87.442 Renal cyst N28.1
== END 2023-10-12 12:19 | disposition home or self-care (01) ==
LOC: HO.HUSH 11:55
PROVIDERS: PCP Internal Medicine; Visit Provider Nurse Practitioner Family
DX: Z87.442 Personal history of urinary calculi (principal); N28.1 Cyst of kidney, acquired
CPT/HCPCS: 99442

== ENCOUNTER → 2023-10-12 11:55 | Outpatient (BNVA) | payer OTHER, SELFPAY | PROVIDERS: PCP Internal Medicine; Visit Provider Nurse Practitioner Family ==

== ENCOUNTER 2024-03-26 07:41 | Outpatient (REF) | payer OTHER, SELFPAY ==
[2024-03-26 07:54] LABS: MANUAL DIFF FLAG NO
[2024-03-26 08:19] LABS: Basophils Percent Auto 0.7 % (0-2); Eosinophils Absolute Auto 0.1 X10*3/uL (0.0-0.4); Eosinophils Percent Auto 2.4 % (0-4); Hematocrit 39.4 % (37.0-47.0); Hemoglobin 12.8 g/dl (12.0-16.0); Imm Gran Abs Auto 0.03 X10*3/uL (0.00-0.03); Imm Gran Pct Auto 0.6 % (0.0-0.4); Lymphocytes Absolute Auto 1.7 X10*3/uL (1.2-4.9); Lymphocytes Percent Auto 30.9 % (20-40); Mean Corpuscular HGB Conc 32.5 g/dl (31.0-35.0); Mean Corpuscular Hemoglobin 28.8 pg (27.0-33.0); Mean Corpuscular Volume 88.7 fL (80.0-98.0); Mean Platelet Volume 9.6 fL (9.4-12.3); Monocytes Absolute Auto 0.4 X10*3/uL (0.1-1.2); Monocytes Percent Auto 6.8 % (2-11); Neutrophils Absolute Auto 3.2 x10*3/uL (2.0-8.3); Neutrophils Percent Auto 58.6 % (45-73); Platelet Count 253 X10*3/uL (160-400); Red Blood Count 4.44 X10*6/uL (4.20-5.50); Red Cell Distribution Width 12.9 % (11.0-16.0); White Blood Count 5.4 X10*3/uL (4.8-10.8)
[2024-03-26 08:22] LABS: Appearance Urine Clear; Color Urine Yellow; Glucose Urine UA Negative (Negative); Leukocyte Esterase Urine Small (1+) (Negative); Nitrite Urine Negative (Negative); PH 5.5 (5.0-9.0); Specific Gravity - Urine 1.025 (1.005-1.025); UMIC TRIGGER UACC YES; Urine Blood Small (1+) (Negative); Urine Ketones Negative (Negative); Urine Protein Negative (Neg-Trace)
[2024-03-26 08:31] LABS: Estimated Average Glucose 123 mg/dL; Hemoglobin A1c % 5.9 % (<6.0)
[2024-03-26 08:34] LABS: Bacteria Urine None Seen (None Seen); Hyaline Casts Urine 0-2 /LPF (0-2); RBC Urine 0-2 /HPF (0-2); Squamous Epithelial Cell Urine 0-2 /HPF (0-2); UACC Culture Trigger YES; WBC Urine 0-5 /HPF (0-5)
[2024-03-26 08:52] LABS: Alanine Aminotransferase 21 U/L (0-31); Albumin Level 4.4 g/dL (3.5-5.0); Alkaline Phosphatase 81 U/L (39-117); Anion Gap 10 (12-20); Aspartate Amino Transferase 18 U/L (5-31); Bilirubin Total 0.5 mg/dL (0.0-1.0); Blood Urea Nitrogen 20 mg/dL (9-16); Calcium 9.5 mg/dL (8.4-10.2); Carbon Dioxide 28 mmol/L (22-29); Chloride 106 mmol/L (96-108); Cholesterol 292 mg/dL (<200); Estimated Glomerular Filt Rate 56; Glucose Random 113 mg/dL (60-115); HDL Cholesterol 56 mg/dL (>40); LDL Cholesterol Calculated 189 mg/dL (<100); Potassium 4.3 mmol/L (3.3-5.1); Sodium 140 mmol/L (135-145); Total Protein 7.5 g/dL (6.5-8.0); Triglycerides 237 mg/dL (<150)
[2024-03-26 09:06] LABS: Free T4 (Free Thyroxine) 0.86 ng/dL (0.71-1.85)
[2024-03-26 09:15] LABS: Folate 8.9 ng/mL (> or = 4.0); Vitamin B12 1601 pg/mL (200-900)
== END 2024-03-26 07:42 | disposition home or self-care (01) ==
LOC: HO.LAB 07:41
PROVIDERS: PCP Internal Medicine; Visit Provider Internal Medicine
DX: R73.01 Impaired fasting glucose (principal); E78.00 Pure hypercholesterolemia, unspecified; R30.0 Dysuria
CPT/HCPCS: 36415; 80053; 80061; 81001; 82607; 82746; 83036; 84439; 84443; 85025; 87086

== ENCOUNTER 2024-04-02 10:09 | Outpatient (AMB) | payer OTHER, SELFPAY ==
[2024-04-02 10:19] VITALS: BP 140/78; PULSE 81; O2SAT 97; BMI 33.1
--- NOTE | 2024-04-02 10:19 | MHC.PC.OV ---
Vital Signs 04/02/24 10:19 04/02/24 10:47 Height 5 ft 3 in Weight 187 lb BMI 33.1 BP 140/78 H 130/70 Blood Pressure Location Lt brachial Lt brachial Position Sitting Sitting Pulse 81 Pulse Source Pulse Oximeter Pulse Oximetry (%) 97 Oxygen Delivery Method Room Air Intake Visit Reasons: IGT, Cholesterol Allergies Penicillins [PENICILLINS] Allergy (Intermediate, Verified 04/02/24 10:21) RASH,ITCHING hydrochlorothiazide Adverse Reaction (Intermediate, Verified 04/02/24 10:21) dizzy Tobacco use date assessed: 10/03/23 Fall risk assessment: 1 Fall in past year (Rolled out of bed. ) Last assessed Fall Risk: 04/02/24 Dental Screening Dental Screen Date: 10/03/23 HPI IGT, Cholesterol HPI Details 79-year-old obese female with impaired glucose tolerance hypercholesterolemia hypertension GERD and generalized anxiety disorder last seen in September 2023. Patient's colonoscopy is up-to-date September 2023 mammogram is up-to-date 08/06/2023 in the bone density is up-to-date June 2023. Patient is here for follow-up. Review of the notes has seen Urology September 2023 history of nephrolithiasis had an ultrasound done with no renal calculi continue to monitor. Patient also follows up with the surgeon after excision of the large lipoma on the right flank . for the cholesterol - admits now taking irregular. family is aware and will be taking regular. will retest [facility] Medical History Nephrolithiasis Knee pain, right Rotator cuff arthropathy of both shoulders Shoulder subluxation, right Subconjunctival hemorrhage of right eye Annual physical exam Eczematous dermatitis Bilateral hand numbness Urinary incontinence Shoulder pain, bilateral Osteoarthritis, knee Cataract Carpal tunnel syndrome Gout Anxiety and depression GERD (gastroesophageal reflux disease) Hypertension Hypercholesterolemia History of renal calculi Osteoporosis Migraine Impaired fasting glucose Peripheral vascular disease Obesity (BMI 30-39.9) Fibromyalgia Surgical History S/P excision of lipoma (10/01/23) Hx of blepharoplasty H/O colonoscopy History of shoulder surgery (12/12/22) History of cataract surgery History of carpal tunnel release Family History Father CVD (cardiovascular disease) Stroke Mother Diabetes Hypertension Maternal Aunt Breast cancer Brother Intestinal cancer Social History Housing: Apartment Alcohol intake: never Patient Tobacco Use Status: Never used Tobacco e-Cigarette/Vaping Use: Never Used Second Hand Smoke Exposure: No service: No Current occupational status: disabled Current occupation: Rt handed Cognitive needs: No Hearing needs: No Vision needs: Yes Questionnaire PHQ-9 Over the last 2 weeks, how often have you been bothered by any of the following problems? 1. Little interest or pleasure in doing things: several days 2. Feeling down, depressed, or hopeless: several days 3. Trouble falling or staying asleep, or sleeping too much: not at all 4. Feeling tired or having little energy: not at all 5. Poor appetite or overeating: not at all 6. Feeling bad about yourself - or that you are a failure or have let yourself or your family down: not at all 7. Trouble concentrating on things, such as reading the newspaper or watching television: not at all 8. Moving or speaking so slowly that other people could have noticed. Or the opposite - being so fidgety or restless that you have been moving around a lot more than usual: not at all 9. Thoughts that you would be better off or of hurting yourself in some way: not at all Total score: 2 Depression Screening Interpretation: Negative Depression Screening Done: Yes Source: Developed by Drs. Christopher Lynne, Mera Kebede, Ron Flores and colleagues, with an educational wicho from [employer]. Thrive Questionnaire Date Thrive assessed: 10/03/23 AUDIT C Alcohol Use Questionnaire (AUDIT-C) 1. How often do you have a drink containing alcohol?: Never 3. How often do you have six or more drinks on one occasion?: Never Total Score: 0 Score Reviewed/Action Taken: No WAGNER-7 AMB Questionnaire WAGNER-7 Date WAGNER - 7 assessed: 04/02/24 Feeling nervous, anxious, or on edge: 1 = Several days Not being able to stop or control worryin = Several days Worrying too much about different things: 1 = Several days Trouble relaxin = Not at all Being so restless that it is hard to sit still: 0 = Not at all Becoming easily annoyed or irritable: 0 = Not at all Feeling afraid as if something awful might happen: 0 = Not at all Total WAGNER-7 score (0-4 normal; 5-9 mild; 10-14 moderate; 15-21 severe): 3 Source: Developed by Drs. Christopher Lynne, Mera Kebede, Ron Flores and colleagues, with an educational wicho from [employer]. Physical exam (Primary Care) Vital Signs: Last Vital Signs Pulse 81 04/02/24 10:19 BP 140/78 H 04/02/24 10:19 Pulse Ox 97 04/02/24 10:19 Oxygen Delivery Method Room Air 04/02/24 10:19 BMI result Body Mass Index 33.1 Tobacco/Smoking Status: Tobacco use Status Tobacco use date assessed 10/03/23 04/02/24 10:19 Patient Tobacco Use Status Never used Tobacco 04/02/24 10:19 e-Cigarette/Vaping Use Never Used 04/02/24 10:19 PHQ-9: PHQ-9 Score PHQ-9: Total score 2 04/02/24 10:26 Depression Screening Interpretation: Negative Thrive Assessment: Date of Thrive Assessment Date Thrive assessed 10/03/23 04/02/24 10:19 Const General: alert; No acute distress Eyes Conjunctivae: conjunctivae normal Resp Auscultation: clear to auscultation bilaterally Cardio Rate: regular rate Rhythm: regular rhythm GI Inspection: Yes normal to inspection Extrem General: Yes normal to inspection and No edema Assessment and Plan Assessment & Plan (1) Right flank mass: Comment: Lipoma excision Dr. Handy September 2023 Code(s): R19.00 - Intra-abdominal and pelvic swelling, mass and lump, unspecified site Plan: Patient has followed up with the surgeon lipoma (2) Obesity (BMI 30-39.9): Code(s): E66.9 - Obesity, unspecified Plan: Diet and exercise (3) Impaired fasting glucose: Code(s): R73.01 - Impaired fasting glucose Plan: Decrease the amount of carbohydrate intake, pasta, bread, rice and potatoes are all sugar and that is aside from all the sweet stuff, remember that fruits are good but they are Sweet also. (4) Hypercholesterolemia: Code(s): E78.00 - Pure hypercholesterolemia, unspecified Plan: Avoid fried foods, chicken skin, eggs, butter margarine, pastries and meat. Be it pork or beef they have a lot of cholesterol LDL goal of less than 130 and triglyceride of less than 150 patient on rosuvastatin 10 mg once a day concern on a big change on cholesterol. (5) Hypertension: Code(s): I10 - Essential (primary) hypertension Plan: Continue with blood pressure medication. Decrease salt intake and exercise patient is taking lisinopril 40 mg once a day (6) GERD (gastroesophageal reflux disease): Code(s): K21.9 - Gastro-esophageal reflux disease without esophagitis Qualifiers: Esophagitis presence: without esophagitis Qualified Code(s): K21.9 - Gastro-esophageal reflux disease without esophagitis Plan: Avoid the foods that causes that usually spicy foods, tomato products, juices, coffee, soda and foods that your sensitive to. After eating do not lie down, allow 3-4 hours before in lie down. And keep the head of bed above 30 degrees to avoid the acid from going up. (7) History of renal calculi: Code(s): Z87.442 - Personal history of urinary calculi Plan: Patient follows up with urology and recent ultrasound is negative. Orders: Orders Hemoglobin A1c 3 Months R73.01 - Impaired fasting glucose Lipid Panel 3 Months E78.00 - Pure hypercholesterolemia, unspecified Comprehensive Met. Panel 3 Months E78.00 - Pure hypercholesterolemia, unspecified Coding Level of Care Code Est Pt Level 4 (69755) Complex EM visit Add On G2211 Diagnoses Right flank mass R19.00 Obesity (BMI 30-39.9) E66.9 Impaired fasting glucose R73.01 Hypercholesterolemia E78.00 Essential hypertension I10 Gastroesophageal reflux disease without esophagitis K21.9 Esophagitis presence: without esophagitis History of renal calculi Z87.442 Additional Codes PHQ-9 - 12000 - PHQ-9 Billing: ([id number])
[2024-04-02 10:47] VITALS: BP 130/70
== END 2024-04-02 10:56 | disposition home or self-care (01) ==
PROVIDERS: PCP Internal Medicine; Visit Provider Internal Medicine
DX: R19.00 Intra-abdominal and pelvic swelling, mass and lump, unspecified site (principal); E66.9 Obesity, unspecified; Z68.33 Body mass index [BMI] 33.0-33.9, adult; R73.01 Impaired fasting glucose; E78.00 Pure hypercholesterolemia, unspecified; I10 Essential (primary) hypertension; K21.9 Gastro-esophageal reflux disease without esophagitis; Z87.442 Personal history of urinary calculi
CPT/HCPCS: 99214; G2211

== ENCOUNTER 2024-04-26 12:37 | Emergency (ER) | payer OTHER, SELFPAY ==
[2024-04-26 12:44] VITALS: BP 163/70; PULSE 75; RESP 16; TEMP 37; O2SAT 96; BMI 32.9
--- NOTE | 2024-04-26 12:44 | ED_ITS ---
HPI - General Adult General Chief complaint: Eye Problems Stated complaint: Swollen cheek bone Time Seen by Provider: 04/26/24 13:00 Source: patient Mode of arrival: ambulatory Limitations: language barrier (Speaking medical interpreter utilized) History of Present Illness HPI narrative: Patient is a 79-year-old female who presents emergency department for evaluation of swelling to her left eye. She reports approximately 3 days ago she developed a painful stye to the upper outer eyelid. She was applying a topical ointment, appears to be a lubricant ointment to the area without much improvement. She has since developed swelling to the upper lid in the inferior periorbital region. During her initial triage there was report of pain with eye movement. However on examination of extraocular movements she denies pain but rather has pain when she attempts to touch the skin surrounding her eye or open her eye very wide such as to examine the bottom of her sclera. She denies any drainage from the eye or crusting of the lashes. She denies any pain or pressure behind the eye. No headache. No fevers or chills with this. No injury. No foreign body sensation. She also reports that she has been experiencing intermittent left flank pain which is chronic in nature, states she experiences this due to kidney stones, she requested a urine test to be obtained to check for urinary tract infection however she denies dysuria, urinary frequency/urgency/hesitancy, nausea, vomiting, back/flank pain or abdominal pain. Related Data Home Medications ?Medication ?Instructions ?Recorded ?Confirmed amitriptyline 50 mg tablet 50 mg PO BEDTIME 07/26/20 10/09/23 citalopram 20 mg tablet 20 mg PO DAILY 02/11/21 10/09/23 clonazepam 1 mg tablet 0.5 mg PO DAILY PRN Anxiety 02/11/21 10/09/23 calcium carbonate 500 mg-vitamin 1 tab PO BID 09/25/23 10/09/23 D3 3.125 mcg (125 unit) tablet lidocaine 4 %-m.salicyl 20 %-caps 1 ea topical 09/25/23 10/09/23 0.0375 %-menth 10 % topical ointment (Transderm-iQ) rosuvastatin 20 mg tablet 10 mg PO DAILY 09/25/23 10/09/23 Previous Rx's ?Medication ?Instructions ?Recorded compress.stocking,knee,reg,lrg #2 ea 07/26/20 Poise PAds [id number] #180 ea 11/18/20 Reclining Chair #1 ea 12/25/22 loratadine 10 mg tablet 10 mg PO DAILY 90 days #90 tabs 05/18/23 cyclobenzaprine 5 mg tablet 5 mg PO TID PRN muscle spasm #30 07/04/23 tabs cyanocobalamin (vitamin B-12) 1,000 mcg PO DAILY 90 days #90 tabs 09/07/23 1,000 mcg tablet fluticasone propionate 50 1 spray intranasal DAILY #16 grams 10/08/23 mcg/actuation nasal spray,suspension (Flonase Allergy Relief) acetaminophen 650 mg 650 mg PO BID PRN Pain #90 tabs 01/02/24 tablet,extended release (Tylenol Arthritis Pain) lisinopril 40 mg tablet 40 mg PO DAILY #30 tabs 01/28/24 cholecalciferol (vitamin D3) 125 125 mcg PO DAILY #90 caps 03/01/24 mcg (5,000 unit) capsule diclofenac sodium 1 % topical gel 4 g topical QID #100 grams 03/05/24 (Voltaren Arthritis Pain) gabapentin 300 mg capsule 300 mg PO BID #180 caps 03/05/24 alendronate 70 mg tablet 70 mg PO QWEEK #12 tabs 03/19/24 cefuroxime axetil 500 mg tablet 500 mg PO BID #20 tabs 04/26/24 Allergies Allergy/AdvReac Type Severity Reaction Status Date / Time Penicillins [PENICILLINS] Allergy Intermediate RASH,ITCHIN Verified 04/26/24 12:45 G hydrochlorothiazide AdvReac Intermediate dizzy Verified 04/26/24 12:45 Review of Systems 2 Review of Systems: Yes all other systems are reviewed and are negative [facility] Past Medical History Attestation statement: The following information was validated with the patient. Source: old records reviewed Medical History Nephrolithiasis Knee pain, right Rotator cuff arthropathy of both shoulders Shoulder subluxation, right Subconjunctival hemorrhage of right eye Annual physical exam Eczematous dermatitis Bilateral hand numbness Urinary incontinence Shoulder pain, bilateral Osteoarthritis, knee Cataract Carpal tunnel syndrome Gout Anxiety and depression GERD (gastroesophageal reflux disease) Hypertension Hypercholesterolemia History of renal calculi Osteoporosis Migraine Impaired fasting glucose Peripheral vascular disease Obesity (BMI 30-39.9) Fibromyalgia Surgical History S/P excision of lipoma (10/01/23) Hx of blepharoplasty H/O colonoscopy History of shoulder surgery (12/12/22) History of cataract surgery History of carpal tunnel release Family History Family History Father CVD (cardiovascular disease) Stroke Mother Diabetes Hypertension Maternal Aunt Breast cancer Brother Intestinal cancer Social History Social History Housing: Apartment Alcohol intake: never Patient Tobacco Use Status: Never used Tobacco e-Cigarette/Vaping Use: Never Used Second Hand Smoke Exposure: No Advance Directives: No Advance Directives Information Provided: No service: No Current occupational status: disabled Current occupation: Rt handed Cognitive needs: No Hearing needs: No Vision needs: Yes Physical Exam ED Vital Signs: Vital Signs - 24 hr 04/26/24 12:44 Temperature 98.6 F Pulse Rate 75 Respiratory Rate 16 Blood Pressure 163/70 H Pulse Oximetry 96 Oxygen Delivery Method Room Air BMI result Body Mass Index 32.9 Appearance: Alert.?Oriented to person, place and time. No acute distress.?Normal affect. Eyes: Pupils equal, round and reactive to light.? Left eye with periorbital swelling. EOMI. ENT: Pharynx normal.??TM normal bilaterally. no preauricular tenderness. Neck: Normal inspection.? Neck supple.??Cervical adenopathy CVS: Heart sounds normal. Normal heart rate and rhythm.? Pulses normal.?? Respiratory: No respiratory distress.? Lung sounds clear to auscultation bilaterally?? Abdomen: Soft, nontender, no CVA tenderness, normoactive bowel sounds Skin: Skin warm and dry.? Normal skin color.? Extremities: No lower extremity edema.? Neuro: Moves all extremities spontaneously. Sensation intact bilaterally. Ambulates with normal steady gait. Course Course Course Narrative: This is a rapid medical exam performed by Monae Alberts NP: Additional HPI, ROS, PE not included below will be deferred to primary provider. Patient is a 79-year-old Japanese speaking female presenting to the ED with complaint of left upper eyelid swelling x 3 days. Used OTC ointment for styes. Now having swelling to maxillary area as well, complaints of pain with eye movements. Also complaining of pain to left flank, ? UTI. Denies dysuria, frequency. History of kidney stones. Plan: labs, UA, visual acuity Medical Decision Making Medical Decision Making [facility] Narrative: Patient is a 79-year-old female who presents emergency department with concern for left eye swelling and intermittent flank pain. Her history and physical examination are most concerning for a hordeolum with resultant preseptal cellulitis. On examination she has no pain with extraocular movements, no constitutional symptoms, no exophthalmos, no proptosis, no ecchymosis, no fever, no visual acuity changes, do not suspect orbital cellulitis at this time therefore CT of the orbit was deferred. Discussed course of treatment antibiotic, worrisome signs and symptoms that would warrant re-evaluation in the emergency department and she verbalized understanding. Regarding her intermittent flank pain, she had no associated urinary symptoms, her urinalysis today does not reveal evidence of infection, there is however microscopic hematuria which has been seen on all of her prior urinalysis is likely secondary to her known nephrolithiasis. Differential Diagnosis Differential Diagnoses: The differential diagnosis associated with the presentation includes (See narrative above) Admission/Observation Consideration of admission/observation: Escalation of care including admission/observation considered Lab Data [facility] Lab Attestation statement: I reviewed the patient's lab results. CBC is without leukocytosis, anemia, or thrombocytopenia. No electrolyte derangement. No LATESHA. Urinalysis with microscopic hematuria 04/26/24 13:32 04/26/24 13:32 Labs: Lab Results 04/26/24 Range/Units 13:32 WBC 6.4 (4.8-10.8) X10*3/uL RBC 4.42 (4.20-5.50) X10*6/uL Hgb 12.8 (12.0-16.0) g/dl Hct 38.2 (37.0-47.0) % MCV 86.4 (80.0-98.0) fL MCH 29.0 (27.0-33.0) pg MCHC 33.5 (31.0-35.0) g/dl RDW 12.6 (11.0-16.0) % Plt Count 234 (160-400) X10*3/uL MPV 9.1 L (9.4-12.3) fL Immature Gran % (Auto) 0.3 (0.0-0.4) % Neut % (Auto) 62.8 (45-73) % Lymph % (Auto) 28.1 (20-40) % Rolette % (Auto) 5.9 (2-11) % Eos % (Auto) 2.3 (0-4) % Baso % (Auto) 0.6 (0-2) % Lymph # (Auto) 1.8 (1.2-4.9) X10*3/uL Rolette # (Auto) 0.4 (0.1-1.2) X10*3/uL Eos # (Auto) 0.2 (0.0-0.4) X10*3/uL Baso # (Auto) 0.0 (0.0-0.2) X10*3/uL Abs Immat Gran (auto) 0.02 (0.00-0.03) X10*3/uL Absolute Neuts (auto) 4.0 (2.0-8.3) x10*3/uL Absolute Nucleated RBC 0.000 (0.0-0.012) X10*3/uL Nucleated RBC % (auto) 0.0 (0.0-0.2) /100WBC Sodium 142 (135-145) mmol/L Potassium 4.3 (3.3-5.1) mmol/L Chloride 104 (96-108) mmol/L Carbon Dioxide 29 (22-29) mmol/L Anion Gap 13 (12-20) BUN 13 (9-16) mg/dL Creatinine 0.85 (0.5-1.4) mg/dL Estim Creat Clear Calc 57.0 Estimated GFR > 60 Random Glucose 105 (60-115) mg/dL Calcium 10.5 H D (8.4-10.2) mg/dL Total Bilirubin 0.4 (0.0-1.0) mg/dL AST 18 (5-31) U/L ALT 15 (0-31) U/L Alkaline Phosphatase 69 (39-117) U/L Total Protein 7.9 (6.5-8.0) g/dL Albumin 4.6 (3.5-5.0) g/dL Urine Color Yellow Urine Appearance Clear Urine pH 5.5 (5.0-9.0) Ur Specific Dendron 1.015 (1.005-1.025) Urine Protein Negative (Neg-Trace) mg/dL Urine Glucose (UA) Negative (Negative) mg/dL Urine Ketones Trace (Negative) mg/dL Urine Blood Small (1+) H (Negative) Urine Nitrite Negative (Negative) Ur Leukocyte Esterase Small (1+) H (Negative) Urine RBC 0-2 (0-2) /HPF Urine WBC 0-5 (0-5) /HPF Ur Squamous Epith Cells 0-2 (0-2) /HPF Urine Bacteria None Seen (None Seen) Hyaline Casts 0-2 (0-2) /LPF Independent Historian Clinical information obtained from an independent historian. History obtained from or confirmed by: Other (Daughter) External Record Review External record reviewed: Outpatient record Tests considered The following testing was considered but not selected: See narrative above CT defer Prescription Management I considered prescription management with: Antibiotic Discharge Plan Discharge Clinical Impression: Periorbital cellulitis of left eye Patient Disposition: Home, Self-Care Instructions: Periorbital Cellulitis in Adults (ED) Additional Instructions: If you do not notice any improvement in your symptoms over the next 48 hours please have this re-evaluated. Reasons to return to the emergency department if you begin developing vision changes, difficulty moving your eye or severe pain with moving of your eye, inability to close the eyelid due to swelling, a bulging appearance of your eye from the socket as you were shown on your Internet web browser, if you develop fevers, headaches vomiting or stiff neck. Please complete the entire course of antibiotics as prescribed. Prescriptions: New cefuroxime axetil 500 mg tablet 500 mg PO BID Qty: 20 0RF No Action (DME) Reclining Chair See Rx Instructions .Route .MEDSUPPLY Qty: 1 0RF Rx Instructions: As directed loratadine 10 mg tablet 10 mg PO DAILY 90 Days Qty: 90 3RF cyanocobalamin (vitamin B-12) 1,000 mcg tablet 1,000 mcg PO DAILY 90 Days Qty: 90 2RF fluticasone propionate [Flonase Allergy Relief] 50 mcg/actuation spray,suspension 1 spray intranasal DAILY Qty: 16 0RF Rx Instructions: administer into each nostril acetaminophen [Tylenol Arthritis Pain] 650 mg tablet extended release 650 mg PO BID PRN (Reason: Pain) Qty: 90 0RF lisinopril 40 mg tablet 40 mg PO DAILY Qty: 30 3RF cholecalciferol (vitamin D3) 125 mcg (5,000 unit) capsule 125 mcg PO DAILY Qty: 90 0RF diclofenac sodium [Voltaren Arthritis Pain] 1 % gel 4 g topical QID Qty: 100 0RF Rx Instructions: apply to single knee, ankle, foot; for foot includes sole/toes/top of foot gabapentin 300 mg capsule 300 mg PO BID Qty: 180 0RF alendronate 70 mg tablet 70 mg PO QWEEK Qty: 12 2RF Transderm-iQ 4-20-0.0375-10 % Ointment Roll-On 1 ea TOPICAL rosuvastatin 20 mg tablet 10 mg PO DAILY calcium carbonate-vitamin D3 500 mg-3.125 mcg (125 unit) Tablet 1 tab PO BID amitriptyline 50 mg tablet 50 mg PO BEDTIME (DME) compress.stocking,knee,reg,lrg Misc See Rx Instructions .ROUTE .MEDSUPPLY Qty: 2 0RF Rx Instructions: As directed (DME) Poise PAds [id number] See Rx Instructions .Route .MEDSUPPLY Qty: 180 3RF Rx Instructions: As directed cyclobenzaprine 5 mg tablet 5 mg PO TID PRN (Reason: muscle spasm) Qty: 30 0RF citalopram 20 mg tablet 20 mg PO DAILY clonazepam 1 mg tablet 0.5 mg PO DAILY PRN (Reason: Anxiety) Referrals: Po,Fiorella Farmer MD [Primary Care Provider] - Print Language: Japanese
[2024-04-26 13:38] LABS: MANUAL DIFF FLAG NO
[2024-04-26 13:39] LABS: Basophils Percent Auto 0.6 % (0-2); Eosinophils Absolute Auto 0.2 X10*3/uL (0.0-0.4); Eosinophils Percent Auto 2.3 % (0-4); Hematocrit 38.2 % (37.0-47.0); Hemoglobin 12.8 g/dl (12.0-16.0); Imm Gran Abs Auto 0.02 X10*3/uL (0.00-0.03); Imm Gran Pct Auto 0.3 % (0.0-0.4); Lymphocytes Absolute Auto 1.8 X10*3/uL (1.2-4.9); Lymphocytes Percent Auto 28.1 % (20-40); Mean Corpuscular HGB Conc 33.5 g/dl (31.0-35.0); Mean Corpuscular Volume 86.4 fL (80.0-98.0); Mean Platelet Volume 9.1 fL (9.4-12.3); Monocytes Absolute Auto 0.4 X10*3/uL (0.1-1.2); Monocytes Percent Auto 5.9 % (2-11); Neutrophils Percent Auto 62.8 % (45-73); Platelet Count 234 X10*3/uL (160-400); Red Blood Count 4.42 X10*6/uL (4.20-5.50); Red Cell Distribution Width 12.6 % (11.0-16.0); White Blood Count 6.4 X10*3/uL (4.8-10.8)
[2024-04-26 13:40] LABS: Appearance Urine Clear; Color Urine Yellow; Glucose Urine UA Negative (Negative); Leukocyte Esterase Urine Small (1+) (Negative); Nitrite Urine Negative (Negative); PH 5.5 (5.0-9.0); Specific Gravity - Urine 1.015 (1.005-1.025); UMIC TRIGGER UACC YES; Urine Blood Small (1+) (Negative); Urine Ketones Trace mg/dL (Negative); Urine Protein Negative (Neg-Trace)
[2024-04-26 13:52] LABS: Bacteria Urine None Seen (None Seen); Hyaline Casts Urine 0-2 /LPF (0-2); RBC Urine 0-2 /HPF (0-2); Squamous Epithelial Cell Urine 0-2 /HPF (0-2); UACC Culture Trigger YES; WBC Urine 0-5 /HPF (0-5)
[2024-04-26 14:00] LABS: Alanine Aminotransferase 15 U/L (0-31); Albumin Level 4.6 g/dL (3.5-5.0); Alkaline Phosphatase 69 U/L (39-117); Anion Gap 13 (12-20); Aspartate Amino Transferase 18 U/L (5-31); Bilirubin Total 0.4 mg/dL (0.0-1.0); Blood Urea Nitrogen 13 mg/dL (9-16); Calcium 10.5 mg/dL (8.4-10.2); Carbon Dioxide 29 mmol/L (22-29); Chloride 104 mmol/L (96-108); Estimated Glomerular Filt Rate > 60; Glucose Random 105 mg/dL (60-115); Potassium 4.3 mmol/L (3.3-5.1); Sodium 142 mmol/L (135-145); Total Protein 7.9 g/dL (6.5-8.0)
[2024-04-26 14:45] VITALS: BP 163/70; PULSE 75; RESP 16; TEMP 37; O2SAT 96
== END 2024-04-26 14:45 | disposition home or self-care (01) ==
PROVIDERS: Registered Nurse Emergency; Emergency Provider Emergency Medicine; PCP Internal Medicine
DX: L03.213 Periorbital cellulitis (principal); R10.9 Unspecified abdominal pain
CPT/HCPCS: 36415; 80053; 81001; 85025; 87086; 99283

== ENCOUNTER 2024-07-21 08:09 | Outpatient (REF) | payer OTHER, SELFPAY ==
[2024-07-21 10:13] LABS: Estimated Average Glucose 123 mg/dL; Hemoglobin A1C 133.6885 umol/L; Hemoglobin A1c % 5.9 % (<6.0); Total Hemoglobin (HGBA1C) 3282.1555 umol/L
[2024-07-21 10:15] LABS: Appearance Urine Clear; Color Urine Yellow; Glucose Urine UA Negative (Negative); Leukocyte Esterase Urine Small (1+) (Negative); Nitrite Urine Negative (Negative); PH 5.5 (5.0-9.0); Specific Gravity - Urine 1.025 (1.005-1.025); UMIC TRIGGER UACC YES; Urine Blood Moderate (2+) (Negative); Urine Ketones Negative (Negative); Urine Protein Trace mg/dL (Neg-Trace)
[2024-07-21 10:25] LABS: Bacteria Urine None Seen (None Seen); Hyaline Casts Urine 0-2 /LPF (0-2); UACC Culture Trigger YES; WBC Urine 0-5 /HPF (0-5)
[2024-07-21 11:07] LABS: Alanine Aminotransferase 20 U/L (0-31); Albumin Level 4.2 g/dL (3.5-5.0); Alkaline Phosphatase 65 U/L (39-117); Anion Gap 11 (12-20); Aspartate Amino Transferase 22 U/L (5-31); Bilirubin Total 0.4 mg/dL (0.0-1.0); Blood Urea Nitrogen 20 mg/dL (9-16); Calcium 9.6 mg/dL (8.4-10.2); Carbon Dioxide 29 mmol/L (22-29); Chloride 104 mmol/L (96-108); Cholesterol 170 mg/dL (<200); Estimated Glomerular Filt Rate 55; Glucose Random 108 mg/dL (60-115); HDL Cholesterol 64 mg/dL (>40); LDL Cholesterol Calculated 83 mg/dL (<100); Potassium 4.1 mmol/L (3.3-5.1); Sodium 140 mmol/L (135-145); Triglycerides 117 mg/dL (<150)
== END 2024-07-21 08:10 | disposition home or self-care (01) ==
LOC: HO.LAB 08:09
PROVIDERS: PCP Internal Medicine; Visit Provider Internal Medicine
DX: R73.01 Impaired fasting glucose (principal); E78.00 Pure hypercholesterolemia, unspecified; R30.0 Dysuria
CPT/HCPCS: 36415; 80053; 80061; 81001; 81003; 83036; 87086

== ENCOUNTER 2024-07-30 09:40 | Outpatient (AMB) | payer OTHER, SELFPAY ==
[2024-07-30 10:22] VITALS: BP 168/92; PULSE 75; O2SAT 97; BMI 32.6
--- NOTE | 2024-07-30 10:22 | MHC.PC.OV ---
Vital Signs 07/30/24 10:22 Height 5 ft 3 in Weight 184 lb BMI 32.6 BP 168/92 H Blood Pressure Location Lt brachial Position Sitting Pulse 75 Pulse Source Pulse Oximeter Pulse Oximetry (%) 97 Oxygen Delivery Method Room Air Intake Visit Reasons: 3 Month Follow Up Allergies Penicillins [PENICILLINS] Allergy (Intermediate, Verified 07/30/24 10:23) RASH,ITCHING hydrochlorothiazide Adverse Reaction (Intermediate, Verified 07/30/24 10:23) dizzy Tobacco use date assessed: 10/03/23 Fall risk assessment: No Falls in past year Last assessed Fall Risk: 07/30/24 Dental Screening Dental Screen Date: 10/03/23 HPI 3 Month Follow Up HPI Details 79-year-old obese female with impaired glucose tolerance hypercholesterolemia hypertension GERD nephrolithiasis coming in for follow-up. March 2024 last seen colonoscopy done in 2023, mammogram is due, bone density is up-to-date having osteopenia. Noted ER visit in April for left eye swelling treated with periorbital cellulitis cefuroxime prescription. was told BP low at home but no record that i have , have decreased BP med [facility] Medical History Nephrolithiasis Knee pain, right Rotator cuff arthropathy of both shoulders Shoulder subluxation, right Subconjunctival hemorrhage of right eye Annual physical exam Eczematous dermatitis Bilateral hand numbness Urinary incontinence Shoulder pain, bilateral Osteoarthritis, knee Cataract Carpal tunnel syndrome Gout Anxiety and depression GERD (gastroesophageal reflux disease) Hypertension Hypercholesterolemia History of renal calculi Osteoporosis Migraine Impaired fasting glucose Peripheral vascular disease Obesity (BMI 30-39.9) Fibromyalgia Surgical History S/P excision of lipoma (10/01/23) Hx of blepharoplasty H/O colonoscopy History of shoulder surgery (12/12/22) History of cataract surgery History of carpal tunnel release Family History Father CVD (cardiovascular disease) Stroke Mother Diabetes Hypertension Maternal Aunt Breast cancer Brother Intestinal cancer Social History Housing: Apartment Alcohol intake: never Patient Tobacco Use Status: Never used Tobacco Tobacco use type: Cigarette e-Cigarette/Vaping Use: Never Used Second Hand Smoke Exposure: No service: No Current occupational status: disabled Current occupation: Rt handed Cognitive needs: No Hearing needs: No Vision needs: Yes Questionnaire PHQ-9 Over the last 2 weeks, how often have you been bothered by any of the following problems? 1. Little interest or pleasure in doing things: several days 2. Feeling down, depressed, or hopeless: several days 3. Trouble falling or staying asleep, or sleeping too much: not at all 4. Feeling tired or having little energy: not at all 5. Poor appetite or overeating: not at all 6. Feeling bad about yourself - or that you are a failure or have let yourself or your family down: not at all 7. Trouble concentrating on things, such as reading the newspaper or watching television: not at all 8. Moving or speaking so slowly that other people could have noticed. Or the opposite - being so fidgety or restless that you have been moving around a lot more than usual: not at all 9. Thoughts that you would be better off or of hurting yourself in some way: not at all Total score: 2 Depression Screening Interpretation: Negative Depression Screening Done: Yes Source: Developed by Drs. Christopher Lynne, Mera Kebede, Ron Flores and colleagues, with an educational wicho from [employer]. Thrive Questionnaire Date Thrive assessed: 10/03/23 WAGNER-7 AMB Questionnaire WAGNER-7 Date WAGNER - 7 assessed: 04/02/24 Source: Developed by Mera Green Kurt Kroenke and colleagues, with an educational wicho from [employer]. Physical exam (Primary Care) Vital Signs: Last Vital Signs Pulse 75 07/30/24 10:22 BP 168/92 H 07/30/24 10:22 Pulse Ox 97 07/30/24 10:22 Oxygen Delivery Method Room Air 07/30/24 10:22 BMI result Body Mass Index 32.6 Tobacco/Smoking Status: Tobacco use Status Tobacco use date assessed 10/03/23 07/30/24 10:26 Patient Tobacco Use Status Never used Tobacco 07/30/24 10:26 Tobacco use type Cigarette 07/30/24 10:26 e-Cigarette/Vaping Use Never Used 07/30/24 10:26 PHQ-9: PHQ-9 Score PHQ-9: Total score 2 07/30/24 10:31 Depression Screening Interpretation: Negative Thrive Assessment: Date of Thrive Assessment Date Thrive assessed 10/03/23 07/30/24 10:26 Const General: alert; No acute distress Eyes Conjunctivae: conjunctivae normal Resp Auscultation: clear to auscultation bilaterally Cardio Rate: regular rate Rhythm: regular rhythm GI Inspection: Yes normal to inspection Extrem General: Yes normal to inspection and No edema Office Procedures Flu Questionnaire Does the patient have a severe egg allergy?: No Does the patient have severe life threatening allergies?: No Does the patient have a fever or illness today?: No Has the patient ever had Guillain-Mayfield Syndrome?: No Has the patient ever had any past reaction to a flu shot?: No Immunizations Fluarix Triv 8517-5782 (PF) 45 mcg (15 mcg x 3)/0.5 mL IM syringe Performing Provider: Fiorella Coronel MD [facility] [place] [facility] Administered by: Erika Colon CMA on 07/30/24 10:31 Dose Route Admin Location Dispensed Lot Number Expiration Date [facility] Operating Room Surgical Technologist 0.5 mL IM Left Deltoid 0.5 mL [id number] 03/16/25 [id number] [employer] VIS Given Date VIS Provided VIS Publication Date 07/30/24 Single Vaccine 21 Eligibility Eligibility Date Funding Source Not [place] Eligible 07/30/24 Private Coding Level of Care Code Est Pt Level 4 (68324) Complex EM visit Add On G2211 Diagnoses Obesity (BMI 30-39.9) E66.9 Impaired fasting glucose R73.01 Hypercholesterolemia E78.00 Primary hypertension I10 Hypertension type: primary hypertension Gastroesophageal reflux disease without esophagitis K21.9 Esophagitis presence: without esophagitis Osteopenia of multiple sites M85.89 Osteopenia location: multiple sites Assessment & Plan Assessment & Plan (1) Obesity (BMI 30-39.9): Code(s): E66.9 - Obesity, unspecified Category: Medical Plan: Diet and exercise (2) Impaired fasting glucose: Code(s): R73.01 - Impaired fasting glucose Category: Medical Plan: Decrease the amount of carbohydrate intake, pasta, bread, rice and potatoes are all sugar and that is aside from all the sweet stuff, remember that fruits are good but they are Sweet also. (3) Hypercholesterolemia: Code(s): E78.00 - Pure hypercholesterolemia, unspecified Category: Medical Plan: Avoid fried foods, chicken skin, eggs, butter margarine, pastries and meat. Be it pork or beef they have a lot of cholesterol LDL goal of less than 130 and triglyceride of less than 150 on rosuvastatin 20 mg once a (4) Hypertension: Code(s): I10 - Essential (primary) hypertension Category: Medical Qualifiers: Hypertension type: primary hypertension Qualified Code(s): I10 - Essential (primary) hypertension Plan: Patient is on lisinopril 20 mg once a day only Continue with blood pressure medication. Decrease salt intake and exercise. clarification done with BP and med, monitor the BP and record and bring list of BP (5) GERD (gastroesophageal reflux disease): Code(s): K21.9 - Gastro-esophageal reflux disease without esophagitis Category: Medical Qualifiers: Esophagitis presence: without esophagitis Qualified Code(s): K21.9 - Gastro-esophageal reflux disease without esophagitis Plan: Avoid the foods that causes that usually spicy foods, tomato products, juices, coffee, soda and foods that your sensitive to. After eating do not lie down, allow 3-4 hours before in lie down. And keep the head of bed above 30 degrees to avoid the acid from going up. (6) Osteopenia: Comment: June 2021 Code(s): M85.80 - Other specified disorders of bone density and structure, unspecified site Category: Medical Qualifiers: Osteopenia location: multiple sites Qualified Code(s): M85.89 - Other specified disorders of bone density and structure, multiple sites Plan: Continue with calcium and vitamin-D. On alendronate 70 mg once a week Orders: Orders Influenza [id number] Immunization Today Z23 - Encounter for immunization Medications: Changed From lisinopril 20 mg (1/2 x 40 mg) PO DAILY 30 tabs 3RF To lisinopril 20 mg PO DAILY 90 tabs 3RF Refilled rosuvastatin 20 mg PO DAILY 90 tabs 0RF
== END 2024-07-30 10:58 | disposition home or self-care (01) ==
PROVIDERS: PCP Internal Medicine; Visit Provider Internal Medicine
DX: R73.01 Impaired fasting glucose (principal); E66.9 Obesity, unspecified; Z68.32 Body mass index [BMI] 32.0-32.9, adult; E78.00 Pure hypercholesterolemia, unspecified; I10 Essential (primary) hypertension; K21.9 Gastro-esophageal reflux disease without esophagitis; M85.89 Other specified disorders of bone density and structure, multiple sites; Z23 Encounter for immunization

== ENCOUNTER → 2024-07-30 09:40 | Outpatient (BNVA) | payer OTHER, SELFPAY | PROVIDERS: PCP Internal Medicine; Visit Provider Internal Medicine | DX: Z23 Encounter for immunization (principal); R73.01 Impaired fasting glucose; E66.9 Obesity, unspecified; E78.00 Pure hypercholesterolemia, unspecified; I10 Essential (primary) hypertension; K21.9 Gastro-esophageal reflux disease without esophagitis; M85.89 Other specified disorders of bone density and structure, multiple sites | CPT/HCPCS: 90471; 90656; 99212 ==

== ENCOUNTER 2024-08-06 10:20 | Outpatient (REF) | payer OTHER, SELFPAY ==
--- NOTE | ~2024-08-06 | MM_ITS ---
EXAMINATION: MM SCREENING DIGITAL BREAST TOMOSYNTHESIS, BILATERAL CLINICAL INFORMATION: Screening. Asymptomatic. COMPARISON: Mammography: Comparison is made with available priors TECHNIQUE: Digital breast mammography with tomosynthesis is performed in both the craniocaudal and mediolateral oblique views along with computer-aided detection (CAD). FINDINGS: There are scattered areas of fibroglandular density (ACR BI-RADS breast composition Category b). There are no significant masses, abnormal calcifications, or other abnormalities. MM/MM tomosynthesis screening BI IMPRESSION: No mammographic evidence of malignancy. ASSESSMENT: BI-RADS BI-RADS 1 - Negative RECOMMENDATION: Routine annual mammography screening. 1 year F/U This examination should not preclude the clinical evaluation of a suspicious palpable abnormality. This patient's information was entered into a reminder system with a target due date for their next mammogram. Electronically signed by: Tiki Sharma DO 08/13/2024 02:51 PM [facility]
== END 2024-08-06 10:21 | disposition home or self-care (01) ==
LOC: HO.MAMMO 10:20
PROVIDERS: PCP Internal Medicine; Visit Provider Internal Medicine
DX: Z12.31 Encounter for screening mammogram for malignant neoplasm of breast (principal)
CPT/HCPCS: 77063; 77067

== ENCOUNTER → 2024-08-06 10:30 | Outpatient (BNV) | payer OTHER, SELFPAY | PROVIDERS: PCP Internal Medicine; Visit Provider Internal Medicine | DX: Z12.31 Encounter for screening mammogram for malignant neoplasm of breast (principal) | CPT/HCPCS: 77063; 77067 ==

== ENCOUNTER 2024-09-30 10:04 | Outpatient (REF) | payer OTHER, SELFPAY ==
--- NOTE | ~2024-09-30 | US_ITS ---
EXAMINATION: US RETROPERITONEAL LIMITED (RENAL ONLY) CLINICAL INFORMATION: Calculus of kidney. COMPARISON: 08/29/2023. TECHNIQUE: Real-time imaging of the kidneys. FINDINGS: RIGHT KIDNEY: 10.7 x 4.9 x 6.3 cm (SAG x AP x TRV). The kidney is normal in size, contour, and echogenicity. Renal cortical thickness is normal. No calculi or suspicious focal parenchymal lesions. Mild pelvic fullness without gross hydronephrosis, which appears stable from the prior exam. There is a simple midpole cyst measuring 0.7 x 0.8 x 0.8 cm. LEFT KIDNEY: 10.1 x 4.4 x 5.1 cm (SAG x AP x TRV). The kidney is normal in size, contour, and echogenicity. Renal cortical thickness is normal. No calculi or focal parenchymal lesions. No hydronephrosis. US/US renal BI IMPRESSION: 1. No calculi, hydronephrosis, or mass of either kidney. There is a small simple cortical cyst measuring 0.8 cm in the midpole of the right kidney. 2. Mild pelvic fullness of the right kidney without gross hydronephrosis, unchanged prior exam. This is of doubtful clinical significance. Electronically signed by: Eliecer Thurston MD 10/01/2024 09:13 AM [facility]
== END 2024-09-30 10:05 | disposition home or self-care (01) ==
LOC: HO.US 10:04
PROVIDERS: PCP Internal Medicine; Visit Provider Nurse Practitioner Family
DX: N20.0 Calculus of kidney (principal)
CPT/HCPCS: 76775

== ENCOUNTER → 2024-09-30 10:07 | Outpatient (BNV) | payer OTHER, SELFPAY | PROVIDERS: PCP Internal Medicine; Visit Provider Radiology Diagnostic Radiology | DX: N28.1 Cyst of kidney, acquired (principal) | CPT/HCPCS: 76775 ==

== ENCOUNTER 2024-10-08 10:26 | Outpatient (AMB) | payer OTHER, SELFPAY ==
[2024-10-08 10:40] VITALS: BP 142/78; PULSE 74; O2SAT 96; BMI 33.1
--- NOTE | 2024-10-08 10:40 | A.OFFPC_ITS ---
Vital Signs 10/08/24 10:40 Height 5 ft 3 in Weight 187 lb BMI 33.1 BP 142/78 H Blood Pressure Location Lt brachial Position Sitting Pulse 74 Pulse Source Pulse Oximeter Pulse Oximetry (%) 96 Oxygen Delivery Method Room Air Intake Visit Reasons: Annual Exam Intake Note: Patient is requesting refill on gapabentin Allergies Penicillins [PENICILLINS] Allergy (Intermediate, Verified 10/08/24 10:41) RASH,ITCHING hydrochlorothiazide Adverse Reaction (Intermediate, Verified 10/08/24 10:41) dizzy Medication List - Last Reconciled 10/08/24 by Fiorella Coronel MD acetaminophen ER (Tylenol Arthritis Pain) 650 mg PO BID PRN alendronate 70 mg PO QWEEK amitriptyline 50 mg PO BEDTIME calcium carbonate-vitamin D3 500 mg-3.125 mcg (125 unit) 1 tab PO BID cholecalciferol (vitamin D3) 125 mcg PO DAILY citalopram 20 mg PO DAILY clonazepam 0.5 mg PO DAILY PRN compress.stocking,knee,reg,lrg As directed cyanocobalamin (vitamin B-12) 1,000 mcg PO DAILY 90 days diclofenac sodium 1% (Voltaren Arthritis Pain) 4 grams topical QID fluticasone propionate 50 mcg/actuation (Flonase Allergy Relief) 1 spray intranasal DAILY gabapentin 300 mg PO BID lidocain-me.oqbwrsj-jjaw-wvspk 4-20-0.0375-10 % (Transderm-iQ) 1 ea topical lisinopril 20 mg PO DAILY loratadine 10 mg PO DAILY 90 days [Poise PAds [id number] As directed] [Reclining Chair As directed] rosuvastatin 20 mg PO DAILY Tobacco use date assessed: 10/08/24 Fall risk assessment: No Falls in past year Last assessed Fall Risk: 10/08/24 Dental Screening Dental Screen Date: 10/08/24 Did you have a dental visit in the last 12 months?: Yes Did you have a dental problem in the last 6 months where you did not have access to dental care?: No Was dental information given to patient?: Patient has dentist HPI Annual Exam HPI Details The patient is a 79-year-old female presenting with a history of prediabetes and hypertension for a routine physical examination. The patient's hemoglobin A1c has been slightly elevated, with the last reading at 5.9% in July, indicating a slight improvement from previous levels but still above normal. Dietary recommendations to reduce carbohydrate and sugar intake have been discussed. Blood pressure monitoring shows consistent hypertensive measurements in clinical settings, though the patient does not regularly record home measurements. Allergic reactions to Penicillin and Hydrochlorothiazide have been noted. The patient takes multiple medications for bone health, lipid management, allergy, and chronic conditions. Recently, complaints of cramping and stiffness in the extremities, particularly at night, have been reported, suggesting potential arthritic changes. There is no history of passing out, dizziness, chest pain, or significant changes in bowel or urinary habits. The patient experiences occasional heartburn, believed to be diet-related. Prior diagnostic evaluations, including an abdominal ultrasound, showed no kidney stones but incidental findings without clinical concern. - Regular checks of blood pressure advis ed to maintain below 140/90 mmHg. - Patient advised to document home blood pressure readings for future review. - Emphasis on maintaining a balanced t to manage prediabetic symptoms. - Continued adherence to osteoporosis ma nagement regimen advised. - Encouraged regular follow-up for kayce sterol management; previous cholesterol levels improved significantly. - Continued vigilance around vaccination and infection control due to ongoing respiratory viral threats, including influenza and COVID-19. - No detailed social determinants of hea lth were explicitly discussed in the conversation. - Cardiovascular: Reports occasional bernabe st discomfort, not currently active. - Gastrointestinal: Reports episodic hea rtburn, occurring once or twice weekly. - Musculoskeletal: Reports cramps and st iffness in hands and extremities, particularly at night. - Neurological: Denies episodes of dizzi ness or fainting. - Labs: Hemoglobin A1c at 5.9% in [facility] er. - Labs: LDL cholesterol improved from 18 9 mg/dL (March 2024) to 83 mg/dL. - Imaging: Abdominal ultrasound showed n o kidney stones or critical findings. [facility] Medical History (Updated 10/08/24 @ 11:29 by Fiorella Coronel MD) Nephrolithiasis Knee pain, right Rotator cuff arthropathy of both shoulders Shoulder subluxation, right Subconjunctival hemorrhage of right eye Annual physical exam Eczematous dermatitis Bilateral hand numbness Urinary incontinence Shoulder pain, bilateral Osteoarthritis, knee Cataract Carpal tunnel syndrome Gout Anxiety and depression GERD (gastroesophageal reflux disease) Hypertension Hypercholesterolemia History of renal calculi Osteoporosis Migraine Impaired fasting glucose Peripheral vascular disease Obesity (BMI 30-39.9) Fibromyalgia Surgical History S/P excision of lipoma (10/01/23) Hx of blepharoplasty H/O colonoscopy History of shoulder surgery (12/12/22) History of cataract surgery History of carpal tunnel release Family History Father CVD (cardiovascular disease) Stroke Mother Diabetes Hypertension Maternal Aunt Breast cancer Brother Intestinal cancer Social History Housing: Apartment Alcohol intake: never Patient Tobacco Use Status: Never used Tobacco Tobacco use type: Cigarette e-Cigarette/Vaping Use: Never Used Second Hand Smoke Exposure: No service: No Current occupational status: disabled Current occupation: Rt handed Cognitive needs: No Hearing needs: No Vision needs: Yes Questionnaire PHQ-9 Over the last 2 weeks, how often have you been bothered by any of the following problems? 1. Little interest or pleasure in doing things: several days 2. Feeling down, depressed, or hopeless: several days 3. Trouble falling or staying asleep, or sleeping too much: more than half the days 4. Feeling tired or having little energy: more than half the days 5. Poor appetite or overeating: not at all 6. Feeling bad about yourself - or that you are a failure or have let yourself or your family down: not at all 7. Trouble concentrating on things, such as reading the newspaper or watching t elevision: more than half the days 8. Moving or speaking so slowly that other people could have noticed. Or the opposite - being so fidgety or restless that you have been moving around a lot more than usual: not at all 9. Thoughts that you would be better off or of hurting yourself in some way: not at all Total score: 8 Depression Screening Interpretation: Positive Depression Screening Done: Yes 08235 - PHQ-9 Billing: Yes Source: Developed by Drs. Christopher Lynne, Mera Kebede, Ron Flores and colleagues, with an educational wicho from [employer]. Thrive Questionnaire Date Thrive assessed: 10/08/24 I am a: Patient What is your living situation today?: I have a steady place to live Within the past 12 months, did the food you bought not last and you didn't have the money to get more?: Never true Within the past 12 months, did you worry whether your food would run out before you got money to buy more?: Never true Do you have trouble paying for medicines?: No Do you have trouble getting transportation to medical appointments?: No Do you have trouble paying your heating and electricity bill?: No Do you have trouble taking care of your child, family member or friend?: No Do you have trouble with day-to-day activities such as bathing, preparing meals, shopping, managing finances, etc.?: Yes Are you currently unemployed and looking for a job?: No Are you interested in more education?: No Please select the resources that you would like help with: None Currently or been in a relationship where the following occur: No concerns reported THRIVE Score: 0 AUDIT C Alcohol Use Questionnaire (AUDIT-C) 1. How often do you have a drink containing alcohol?: Never Total Score: 0 WAGNER-7 AMB Questionnaire WAGNER-7 Date WAGNER - 7 assessed: 10/08/24 Feeling nervous, anxious, or on edge: 2 = More than half the days Not being able to stop or control worryin = Several days Worrying too much about different things: 1 = Several days Trouble relaxin = Several days Being so restless that it is hard to sit still: 2 = More than half the days Becoming easily annoyed or irritable: 1 = Several days Feeling afraid as if something awful might happen: 2 = More than half the days Total WAGNER-7 score (0-4 normal; 5-9 mild; 10-14 moderate; 15-21 severe): 10 Source: Developed by Drs. Christopher Lynne, Mera Kebede, Ron Flores and colleagues, with an educational wicho from [employer]. WAGNER-7 Assessment Billing WAGNER-7 Assessment Tool: WAGNER-7 Assessment 30762 Review of Systems Const Denies poor appetite and Denies weakness Eyes Denies no additional complaints ENT Reports Normal hearing present, Denies dizziness, Denies nasal congestion, Denies tinnitus and Denies sore throat Card Denies chest pain, Denies syncope, Denies rapid heart rate and Denies dyspnea Resp Denies cough and Denies dyspnea GI Denies change in stool character, Reports constipation, Denies diarrhea, Denies nausea and Denies vomiting Denies urinary frequency, Denies difficulty voiding and Denies dysuria Neuro Reports Normal hearing present, Denies confusion, Denies dizziness, Denies syncope and Denies weakness Psych Denies confusion Physical exam (Primary Care) Vital Signs: Last Vital Signs Pulse 74 10/08/24 10:40 BP 142/78 H 10/08/24 10:40 Pulse Ox 96 10/08/24 10:40 Oxygen Delivery Method Room Air 10/08/24 10:40 BMI result Body Mass Index 33.1 Tobacco/Smoking Status: Tobacco use Status Tobacco use date assessed 10/08/24 10/08/24 10:47 Patient Tobacco Use Status Never used Tobacco 10/08/24 10:47 Tobacco use type Cigarette 10/08/24 10:47 e-Cigarette/Vaping Use Never Used 10/08/24 10:47 PHQ-9: PHQ-9 Score PHQ-9: Total score 8 10/08/24 10:59 Depression Screening Interpretation: Positive Thrive Assessment: Date of Thrive Assessment Date Thrive assessed 10/08/24 10/08/24 10:47 Currently or been in a relationship where the following occur: No concerns reported Const General: No confusion Orientation/consciousness: No confusion HENMT Head: Yes normocephalic Ears: external ears normal and TM's normal bilaterally Face and sinus: Yes normal facial exam Mouth: moist mucous membranes Throat: Yes tonsils normal Eyes Conjunctivae: conjunctivae normal Pupils: Equal, round and reactive pupils present and Pupil accommodation reflex normal Direct Ophthalmoscopy: normal light reflex Neck Neck: No lymphadenopathy Thyroid: Thyroid normal Chest Chest palpation & inspection: normal inspection of the chest Resp Effort & Inspection: normal respiratory effort and no audible wheezes Auscultation: clear to auscultation bilaterally, no crackles, no wheezes and lung sounds not diminished Cardio Rate: regular rate Rhythm: regular rhythm Peripheral pulses: radial pulses present and dorsalis pedis present GI Palpation (GI): no masses Auscultation: normal bowel sounds and normoactive bowel sounds Rectal Exam - Female: deferred Skin General skin exam: no rashes or lesions noted Rashes: no rashes Neuro General: No confusion Cranial nerves: Yes Equal, round and reactive pupils present and Yes Normal hearing present Cognition (Neuro): normal cognition Gait exam (Neuro): Normal gait present Motor exam (neuro): 5/5 motor strength present throughout Deep tendon reflexes (DTR's): Right brachioradialis reflex intensity grade: 2+, Left brachioradialis reflex intensity grade: 2+, Right patellar reflex intensity grade: 2+ and Left patellar reflex intensity grade: 2+ Extrem General: No edema Coding Level of Care Code Est Pt Prev Care >65y(58931) Diagnoses Annual physical exam Z00.00 Obesity (BMI 30-39.9) E66.9 Primary hypertension I10 Hypertension type: primary hypertension Hypercholesterolemia E78.00 Impaired fasting glucose R73.01 Gastroesophageal reflux disease without esophagitis K21.9 Esophagitis presence: without esophagitis History of renal calculi Z87.442 Generalized anxiety disorder F41.1 Additional Codes WAGNER-7 Assessment Billing - WAGNER-7 Assessment Tool: WAGNER-7 Assessment 59608 ([id number]) PHQ-9 - 14764 - PHQ-9 Billing: Yes ([id number]) Assessment & Plan Assessment & Plan (1) Annual physical exam: Code(s): Z00.00 - Encounter for general adult medical examination without abnormal findings Category: Medical (2) Obesity (BMI 30-39.9): Code(s): E66.9 - Obesity, unspecified Category: Medical (3) Hypertension: Code(s): I10 - Essential (primary) hypertension Category: Medical Qualifiers: Hypertension type: primary hypertension Qualified Code(s): I10 - Essential (primary) hypertension (4) Hypercholesterolemia: Code(s): E78.00 - Pure hypercholesterolemia, unspecified Category: Medical (5) Impaired fasting glucose: Code(s): R73.01 - Impaired fasting glucose Category: Medical (6) GERD (gastroesophageal reflux disease): Code(s): K21.9 - Gastro-esophageal reflux disease without esophagitis Category: Medical Qualifiers: Esophagitis presence: without esophagitis Qualified Code(s): K21.9 - Gastro-esophageal reflux disease without esophagitis (7) History of renal calculi: Comment: US done 2023 negative Code(s): Z87.442 - Personal history of urinary calculi Category: Medical (8) Generalized anxiety disorder: Comment: [facility] Code(s): F41.1 - Generalized anxiety disorder Category: Medical Plan - Monitor and manage prediabetes with dietary modifications focusing on reducing sugar intake. - Continue current antihypertensive therapy; review home blood pressure logs upon next visit. - Allergy documentation is up to date; avoid Penicillin and Hydrochlorothiazide. - Continue lipid management regimen with Rosuvastatin to maintain cholesterol levels. - Consider lifestyle modifications and medication options for arthritis-related symptoms. - Recommend keeping a detailed record of symptoms related to cramps and stiffness for further evaluation. During the consultation, I discussed that the patient's slightly elevated A1c indicates prediabetes, prompting a focus on dietary modifications rather than medication at this stage. The patient's hypertension requires monitoring, with a target blood pressure of less than 140/90 mmHg. I requested that the patient keep a log of home blood pressure readings to differentiate between potential white-coat syndrome and sustained hypertension. The improvement in cholesterol levels was acknowledged, and the patient was advised to continue current statin therapy. Potential arthritis was considered given the reported cramps and stiffness, and symptomatic treatment options were discussed. The importance of managing respiratory infection risks with vaccination and hygiene practices was also emphasized. Follow-up is arranged in three months to review condition progress and treatment efficacy. - Monitor and record blood pressure at home in a relaxed state, sitting for a few minutes beforehand, and bring records to the next appointment. - Adhere to dietary recommendations to reduce carbohydrate and sugar intake. - Continue current medication regimen, and refill prescriptions as needed. - Be cautious of allergens, specifically Penicillin and Hydrochlorothiazide. - Employ lifestyle practices to reduce heartburn, such as avoiding late meals and known irritants. - Prioritize vaccination and hygiene measures during the flu season. - Follow up in three months or sooner if new symptoms arise. Orders: Orders XR Hand Bilat min 3v Today M79.643 - Pain in unspecified hand Medications: New tizanidine 4 mg PO BEDTIME PRN 20 tabs 0RF muscle spasticity M79.643 - Pain in unspecified hand Refilled gabapentin 300 mg PO BID 180 caps 1RF
--- OUTSIDE RECORDS SUMMARY | 2024-10-08 11:31 | XMS_ITS | Clinical Summary ---
Author Organization [facility] Address [address] [place] [address] Care Team Providers Care Field Recorder Name Role Phone Unavailable Primary Care Provider Unavailabl e Allergies Active Allergy Reactions Criticality Noted Date Comments Penicillins Itching 05/01/2017 Medications Medication Sig Dispensed Refills Start Date End Date Status citalopram (CeleXA) 40 mg tablet Take 40 mg by mouth daily. Active amitriptyline (ELAVIL) 50 mg tablet at bedtime. Active gabapentin (NEURONTIN) 300 mg capsule Take 300 mg by mouth 2 times daily. Active rosuvastatin (CRESTOR) 5 mg tablet Take 5 mg by mouth daily. Active lisinopriL (PRINIVIL,ZESTRIL) 5 mg tablet Take 5 mg by mouth daily. Active clonazePAM (KlonoPIN) 0.5 mg tablet Take 0.5 mg by mouth 2 times daily as needed. Active cholecalciferol, vitamin D3, 25 mcg (1,000 unit) tablet,chewable Take 1 tablet by mouth daily. Active calcium carbonate-vitamin D3 500 mg-3.125 mcg (125 unit) tablet per tabelt Take 1 tablet by mouth 2 times daily. Active acetaminophen (TYLENOL) 325 mg tablet Take 650 mg by mouth every 6 hours as needed. Active famotidine (PEPCID) 40 mg tablet Take 40 mg by mouth daily. Active Active Problems Problem Noted Date Diagnosed Date Fibromyalgia 08/18/2024 Hypertension 08/18/2024 Peripheral vascular disease, unspecified 024 Immunizations Name Administration Dates Next Due Hepatitis B (Rsdctpm-K-Qyyei , Recombivax HB-Adult) 19yo and older 10/30/2016,05/29/2016,04/26/2016 Surgical History Surgery Date Site/Laterality Comments CATARACT EXTRACTION PROCEDURE: HISTORICAL CATARACT REMOVAL OTHER SURGICAL HISTORY PROCEDURE: MD UNLISTED PROCEDURE EXTRAOCULAR MUSCLE OTHER SURGICAL HISTORY PROCEDURE: ARTHROSCOPY PROCEDURE NEC CARPAL TUNNEL RELEASE PROCEDURE: MD NEUROPLASTY &/TRANSPOS MEDIAN NRV CARPAL TUNNE Medical History Medical History Date Comments Fibromyalgia DX:Fibromyalgia Elevated cholesterol DX:Elevated cholesterol Hypertension DX:Hypertension Peripheral vascular disease, unspecified (CMS/HCC) DX:Peripheral vascular disea se, unspecified (HCC) Depression DX:Depression Anxiety state DX:Anxiety state Generalized osteoarthrosis, unspecified site DX:Generalized osteoarthrosi s, unspecified site; COMMENT: arthritis,fibromyalgia Family History Medical History Relation Name Comments Breast cancer Aunt Colon cancer Brother Arthritis Father Stroke Father Arthritis Mother Diabetes Mother Hypertension Mother Uterine cancer Mother Ovarian cancer Neg Hx Pancreatic cancer Neg Hx Prostate cancer Neg Hx Relation Name Status Comments Aunt Brother Alive Father Mother Alive Social History Tobacco Use Types Packs/Day Years Used Date Smoking Tobacco: Never Smokeless Tobacco: Never Alcohol Use Standard Drinks/Week Comments No 0 (1 standard drink = 0.6 oz pur e alcohol) Sex and Gender Information Value Date Recorded Sex Assigned at Not on file Gender Identity Not on file Sexual Orientation Not on file Obstetrics History Last Filed Vital Signs Vital Sign Reading Time Taken Comments Blood Pressure 130/82 08/21/2023 11:29 AM EST Sitting L Arm Pulse 88 08/21/2023 11:29 AM EST Temperature - - Respiratory Rate - - Oxygen Saturation - - Inhaled Oxygen Concentration - - Weight 87 kg (191 lb 12.8 oz) 11:29 AM EST Height - - Body Mass Index - - Plan of Treatment Upcoming Encounters Date Type Department Care Team (Late st Contact Info) Description 10/22/2024 10:30 AM EST Office Visit Obstetrics and Gynecology - [address] [address] Diandra Sparks, [facility] [address] [place] [address] Health Maintenance Due Date Last Done Comments DTaP,Tdap,and Td Vaccines (1 - Tdap) 1966 Zoster Vaccines (1 of 2) 1997 Pneumococcal Vaccine: 65+ Years (1 of 1 - PCV) 01/17/2012 RSV Immunization Patients 60 + Years Old (1 - 1-dose 75+ series) 2022 Cholesterol Screening (Lipid Panel) 08/27/2022 Depression Screening 08/27/2022 Falls Risk Assessment 08/27/2022 Hepatitis C Screening 08/27/2022 Osteoporosis Screening (Bone Density Screening) 08/27/2022 Social Influencers of Health Screening 08/27/2022 Hypertension/CHF/CAD Annual BMP Blood Test 08/31/2022 COVID-19 Vaccine (2023-2 5 season) 2024 Influenza Vaccine (#1) 2024 Hepatitis B Vaccines Completed 10/30/2016, 05/29/2016, 04/26/2016 HIB Vaccines Aged Out No longer eligi ble based on patient's age to complete this topic HPV Vaccines Aged Out No longer eligi ble based on patient's age to complete this topic Hepatitis A Vaccines Aged Out No long er eligible based on patient's age to complete this topic IPV Vaccines Aged Out No longer eligi ble based on patient's age to complete this topic MMR Vaccines Aged Out No longer eligi ble based on patient's age to complete this topic Meningococcal ACWY Vaccine Aged Out N o longer eligible based on patient's age to complete this topic RSV Immunization Patients Under 20 months Aged Out No longer eligible b ased on patient's age to complete this topic Varicella Vaccines Aged Out No longer eligible based on patient's age to complete this topic
== END 2024-10-08 11:40 | disposition home or self-care (01) ==
PROVIDERS: PCP Internal Medicine; Visit Provider Internal Medicine
DX: Z00.00 Encounter for general adult medical examination without abnormal findings (principal); I10 Essential (primary) hypertension; E66.9 Obesity, unspecified; Z68.33 Body mass index [BMI] 33.0-33.9, adult; E78.00 Pure hypercholesterolemia, unspecified; R73.01 Impaired fasting glucose; K21.9 Gastro-esophageal reflux disease without esophagitis; Z87.442 Personal history of urinary calculi; F41.1 Generalized anxiety disorder

== ENCOUNTER → 2024-10-08 10:26 | Outpatient (BNVA) | payer OTHER, SELFPAY | PROVIDERS: PCP Internal Medicine; Visit Provider Internal Medicine | DX: Z00.00 Encounter for general adult medical examination without abnormal findings (principal); E66.9 Obesity, unspecified; E78.00 Pure hypercholesterolemia, unspecified; R73.01 Impaired fasting glucose; K21.9 Gastro-esophageal reflux disease without esophagitis; I10 Essential (primary) hypertension; F41.1 Generalized anxiety disorder; Z87.442 Personal history of urinary calculi | CPT/HCPCS: 96127; 99397 ==

== ENCOUNTER 2024-10-13 09:23 | Outpatient (AMB) | payer OTHER, SELFPAY ==
--- NOTE | 2024-10-13 09:25 | A.OFFVIS_ITS ---
Intake Visit Reasons: 1 yr follow up/ US(set) Intake Note: Patient presents today for follow up on: kidney stones and ultrasound results * Imaging Completed: 09/30/24 Meds- None Allergies to Antibiotic- Penicillins Blood Thinner- None Embryology Professor Required: No Accompanied by: Child Allergies Penicillins [PENICILLINS] Allergy (Intermediate, Verified 10/13/24 10:12) RASH,ITCHING hydrochlorothiazide Adverse Reaction (Intermediate, Verified 10/13/24 10:12) dizzy Medication List - Last Reconciled 10/13/24 by JUNIOR Medellin-JUAN acetaminophen ER (Tylenol Arthritis Pain) 650 mg PO BID PRN alendronate 70 mg PO QWEEK amitriptyline 50 mg PO BEDTIME calcium carbonate-vitamin D3 500 mg-3.125 mcg (125 unit) 1 tab PO BID cholecalciferol (vitamin D3) 125 mcg PO DAILY citalopram 20 mg PO DAILY clonazepam 0.5 mg PO DAILY PRN compress.stocking,knee,reg,lrg As directed cyanocobalamin (vitamin B-12) 1,000 mcg PO DAILY 90 days diclofenac sodium 1% (Voltaren Arthritis Pain) 4 grams topical QID fluticasone propionate 50 mcg/actuation (Flonase Allergy Relief) 1 spray intranasal DAILY gabapentin 300 mg PO BID lidocain-me.fdycaew-sabu-lxwoa 4-20-0.0375-10 % (Transderm-iQ) 1 ea topical lisinopril 20 mg PO DAILY loratadine 10 mg PO DAILY 90 days [Poise PAds [id number] As directed] [Reclining Chair As directed] rosuvastatin 20 mg PO DAILY tizanidine 4 mg PO BEDTIME PRN HPI Comments Details: Trina is a pleasant 78 year old Mosotho speaking female patient of Dr. Coronel who was accompanied by her daughter at today's office visit. Embryology Professor offered however decline. Patient would like daughter to translate during today's office visit. She has a past medical history of nephrolithiasis, rotator cuff atrophy bilaterally, osteoarthritis, carpal tunnel, anxiety, depression, GERD, hypertension, hypercholesteremia, migraines, peripheral vascular disease, and fibromyalgia. She presents to the office today for follow-up of her renal cysts, nephrolithiasis, and urinary tract infections. In discussion with the patient today she denies having had any bothersome urinary issues or concerns since her last office visit a year ago. Recent renal imaging results reviewed with the patient today. Renal ultrasound 10/11 No calculi, hydronephrosis, or masslike of either kidney. There is a small simple cortical cysts measuring 0.8 cm in the mid pole of the right kidney. Mild pelvic fullness of the right kidney without gross hydronephrosis, unchanged when compared to prior exam. When asked she denies urinary urgency, urinary frequency, incontinence, nocturia, hematuria, dysuria, foul smelling urine, changes to urinary stream, flank pain, fever, and or chills. She is happy with her current voiding parameters. She reports her main concern at today's office visit was renal cyst. We discussed at length potential causes of renal cysts as well as classifications of renal cysts. All questions were answered. In office urinalysis results reviewed with the patient today. She otherwise offers no other issues or concerns at this time. Urine Cytology: 03/08 and 10/09 Negative for high grade urothelial carcinoma. [facility] Medical History Nephrolithiasis Knee pain, right Rotator cuff arthropathy of both shoulders Shoulder subluxation, right Subconjunctival hemorrhage of right eye Annual physical exam Eczematous dermatitis Bilateral hand numbness Urinary incontinence Shoulder pain, bilateral Osteoarthritis, knee Cataract Carpal tunnel syndrome Gout Anxiety and depression GERD (gastroesophageal reflux disease) Hypertension Hypercholesterolemia History of renal calculi Osteoporosis Migraine Impaired fasting glucose Peripheral vascular disease Obesity (BMI 30-39.9) Fibromyalgia Surgical History S/P excision of lipoma (10/01/23) Hx of blepharoplasty H/O colonoscopy History of shoulder surgery (12/12/22) History of cataract surgery History of carpal tunnel release Family History Father CVD (cardiovascular disease) Stroke Mother Diabetes Hypertension Maternal Aunt Breast cancer Brother Intestinal cancer Social History Housing: Apartment Alcohol intake: never Patient Tobacco Use Status: Never used Tobacco Tobacco use type: Cigarette e-Cigarette/Vaping Use: Never Used Second Hand Smoke Exposure: No service: No Current occupational status: disabled Current occupation: Rt handed Cognitive needs: No Hearing needs: No Vision needs: Yes Review of Systems Const Reports no additional complaints Eyes Reports no additional complaints ENT Reports no additional complaints Card Reports no additional complaints Resp Reports no additional complaints GI Reports no additional complaints Reports as per HPI Musc Reports no additional complaints Neuro Reports no additional complaints Psych Reports no additional complaints Endo Reports no additional complaints Marvel/Lymph Reports no additional complaints Aller/Immun Reports no additional complaints Physical Exam Const General: cooperative, healthy appearing, comfortable, no acute distress, well developed, alert and awake Orientation/consciousness: patient oriented x3 Limitations: language barrier HEENT Head: Yes normal to inspection, Yes normocephalic and Yes atraumatic Ears: hearing grossly normal bilaterally Eyes General: appearance normal, both eyes and all related structures Neck Neck: Yes normal visual inspection and Yes trachea midline Chest Chest palpation & inspection: normal inspection of the chest Resp Effort & Inspection: normal respiratory effort and able to speak in complete sentences Cardio Rate: regular rate GI Inspection: Yes normal to inspection General: Yes no CVA tenderness Back/Spine/Pelvis Back: no CVA tenderness Skin General skin exam: no rashes or lesions noted Neuro General: patient oriented x3 Extrem General: Yes normal to inspection Psych Appearance: grossly normal and well kempt Mental Status: mental status grossly normal Speech and movement: Normal speech and movement present and Clear speech present Affect: normal affect Attitude: cooperative Thought process: Normal thought process present Thought content: Normal thought content present Insight: Fair insight present (Psych) Judgement: Fair judgement present (Psych) Results AMB Urinalysis, Automated UA Leukoctes 125 Ladarius/uL Last Edit by Joseline Colunga on 10/13/24 09:53 UA Nitrite Last Edit by Joseline Colunga on 10/13/24 09:53 UA Urobilinogen 0.2 mg/dL Last Edit by Joseline Colunga on 10/13/24 09:53 UA Protein 15 mg/dL Last Edit by Joseline Marlenepiotr on 10/13/24 09:53 UA pH 6.0 Last Edit by Joseline Colunga on 10/13/24 09:53 UA Blood 80 Esau/uL Last Edit by Joseline Colunga on 10/13/24 09:53 UA Specific [place] 1.020 Last Edit by Joseline Colunga on 10/13/24 09:53 UA Ketone Last Edit by Joseline Colunga on 10/13/24 09:53 UA Bilirubin 0 mg/dL Last Edit by Joseline Colunga on 10/13/24 09:53 UA Glucose 0 mg/dL Last Edit by Joseline Colunga on 10/13/24 09:53 Results Reviewed Results Reviewed: Laboratory Last Values Urine pH (Auto) 6.0 10/13/24 09:47 Specific [place] (Auto) 1.020 10/13/24 09:47 Urine Protein (Auto) 15 mg/dL 10/13/24 09:47 Glucose (UA)(Auto) 0 mg/dL 10/13/24 09:47 Urine Blood (Auto) 80 Esau/uL 10/13/24 09:47 Urine Bilirubin (Auto) 0 mg/dL 10/13/24 09:47 Urine Urobilinogen (Auto) 0.2 mg/dL 10/13/24 09:47 Leukocyte Esterase (Auto) 125 Ladarius/uL 10/13/24 09:47 Date of Service: 09/30/24 EXAMINATION: US RETROPERITONEAL LIMITED (RENAL ONLY) FINDINGS: RIGHT KIDNEY: 10.7 x 4.9 x 6.3 cm (SAG x AP x TRV). The kidney is normal in size, contour, and echogenicity. Renal cortical thickness is normal. No calculi or suspicious focal parenchymal lesions. Mild pelvic fullness without gross hydronephrosis, which appears stable from the prior exam. There is a simple midpole cyst measuring 0.7 x 0.8 x 0.8 cm. LEFT KIDNEY: 10.1 x 4.4 x 5.1 cm (SAG x AP x TRV). The kidney is normal in size, contour, and echogenicity. Renal cortical thickness is normal. No calculi or focal parenchymal lesions. No hydronephrosis. IMPRESSION: 1. No calculi, hydronephrosis, or mass of either kidney. There is a small simple cortical cyst measuring 0.8 cm in the midpole of the right kidney. 2. Mild pelvic fullness of the right kidney without gross hydronephrosis, unchanged prior exam. This is of doubtful clinical significance. Assessment & Plan Assessment & Plan (1) History of renal calculi: Comment: US done 2023 negative Code(s): Z87.442 - Personal history of urinary calculi Category: Medical (2) Renal cyst: Code(s): N28.1 - Cyst of kidney, acquired Category: Medical Plan In office urinalysis results reviewed with the patient today; as noted above Recent renal ultrasound results reviewed with the patient today; as noted above. She currently denies any bothersome urinary issues or concerns. Discussed, educated, and stressed the importance of drinking plenty of water daily in relation to nephrolithiasis, urinary tract infections, and overall health and well-being Continue adding 1 oz of lemon juice to water daily. She is happy with her current voiding parameters. Follow-up in 6 months with [facility]; or sooner with any issues, concerns, and or questions. Orders: Orders AMB Urinalysis Automated Today Z13.9 - Encounter for screening, unspecified Patient Instructions: The patient had an opportunity to ask questions regarding the treatment plan. All questions were answered. Physical exam, labs, and imaging were discussed and reviewed in detail. As well as risks, benefits, and discussion of treatment choices. No major barriers to understanding were identified. The patient expressed understanding and agreement with the above treatment plan. The patient was made aware they should contact our office by phone for worsening of their current condition, the appearance of new symptoms, or with any questions or concerns. Compliance is encouraged with any medications and follow up testing that is ordered. It is a privilege to be allowed the opportunity to participate in? your urological care.? Again, if you have any questions or concerns If you have any questions or concerns please do not hesitate to contact me. The office is [phone]. This note is constructed using voice recognition software. While every effort has been made to ensure accuracy supervisor mold construction errors may have been included. Yours sincerely, JESSICA Medellin Coding Level of Care Code Est Pt Level 3 (22265) Complex EM visit Add On G2211 Diagnoses History of renal calculi Z87.442 Renal cyst N28.1
--- OUTSIDE RECORDS SUMMARY | 2024-10-13 13:44 | XMS_ITS | Patient Health Record ---
Author Organization [facility] Address [address] [place] [address] Care Team Providers Care Manager Generation Name Role Phone Po Fiorella CA Primary Care Provider Edwin Yi Jr Unavailable [phone] ALLERGIES Allergen (clinical drug ingredient) Drug/Non Drug Allergy documented on EMR Reaction Allergy Type Onset Date Status Penicillin Unknown Drug Allergy Active REASON FOR REFERRAL No Information MEDICATIONS Medication SIG (Take, Route, Frequency, Duration) Notes Start Date End Date Status Transderm-iQ Active clonazePAM 0.5 MG (Schedule IV Drug) O ral for 30 Active Colyte with Flavor Packs 240 GM As directed Orally Over the specified time. for 1 day(s) Active Famotidine 40 MG Orally Act marline Arthritis Pain Reliever 650 MG TK 1 T PO BID PRN Oral for 30 Active Rosuvastatin Calcium 10 MG TK 1 T PO QD Oral for 30 Active Citalopram Hydrobromide 20 MG TK 1 T PO D Oral for 30 Acti ve Amitriptyline HCl 50 MG TK 1 T PO QHS Or al for 90 Active MiraLax (colon prep) 8.3 ounce ((238) grams mixed with Gatorade or Crystal Light orally begin at 5:00 p.m. the day before the procedure for 1 day 09/20/2023 Active Arthritis Pain Relief 650 MG TK 1 T PO B ID PRN Oral for 30 Active Dulcolax (colon prep) 5 MG take at 3:00 p.m and 7:00p.m. Orally two tablets twice a day for one day for 1 day 09/20/2023 Active Lisinopril 10 MG TK 1 T PO QD Oral for 30 Active Gabapentin 300 MG TAKE ONE CAPSULE BY MOUTH TWICE DAILY Oral for 90 Active MiraLax (colon prep) 17 GM/SCOOP mixed with Gatorade or Crystal Light Orally begin at 5:00 p.m. the day before the procedure for 1 day 06/18/2023 Active Calcium 500 + D 500-125 MG-UNIT TK 1 T PO BID WF Oral for 30 Active Vitamin D 1000 UNIT TK 1 T PO ONCE A DAY Oral for 30 Active Fluticasone Propionate 50 MCG/ACT SPRAY ONCE IN EACH NOSTRIL ONCE A DAY Nasal for 30 Active Alendronate Sodium 70 MG Oral for 28 Active IMMUNIZATIONS Vaccine Route Administration Date Status Comme nts Influenza Unknown 07/04/2022 Administered SOCIAL HISTORY Tobacco Use: Social History Observation Description Date Details (start date - stop date) Never Smoker NA - NA Sex Assigned At : Social History Observation Description Sex Assigned At Unknown Tobacco Use/Smoking Question Answer Notes Patient is a nonsmoker Alcohol Screen Question Answer Notes Did you have a drink containing alcohol in the p ast year? No Points 0 Interpretation Negative PROBLEMS Problem Type ICD Code Onset Dates Problem Status W/U Status Risk SNOMED Code Notes Problem Colon cancer screening (Z12.11) Active confirmed 885261985 Problem Family history of colon cancer (Z80.0) Active confirmed [id number] PLAN OF TREATMENT Future Test Test Name Order Date COLONOSCOPY 11/01/2017 COLONOSCOPY 06/18/2023 Insurance Providers Payer Name Payer Address Payer Phone Subscriber Number Group Number Insured Name Patient Relationship to Insured Coverage Start Date Coverage End Date [facility] [address] [place] [address] [id number] JAY MONTIEL Self - patient is the insured MEDICAID OF [facility] [address] [place] [address] [id number] JAY MONTIEL Self - patient is the insured MEDICAL (GENERAL) HISTORY Medical History History ICD Code Gastroesophageal reflux disease Hypertension Nephrolithiasis Anxiety/depression Fibromyalgia Elevated cholesterol Migraine headaches Colonoscopy 03/04, tubular adenoma, five- year followup Surgical History Surgery Date(Month/Year) carpal tunnel release bilateral cataracts blepharoplasty shoulder replacement right 12/12/22
--- OUTSIDE RECORDS SUMMARY | 2024-10-13 13:45 | XMS_ITS ---
Author Organization [facility] Address [address] [place] [address] Care Team Providers Care Commercial Driver Name Role Phone Fiorella Coronel MD Primary Care Provider Edwin Yi Jr REASON FOR VISIT screening Encounters Encounter Location Date Provider Diagnosis [facility] [address] [place], [place] [id number] 09/28/2023 Edwin Sorto Jr Encounter for screening colonoscopy Z12.11 ASSESSMENTS Encounter Date Diagnosis Assessment Notes Treatment Notes Treatment Clinical Notes 09/28/2023 Encounter for screening colonoscopy (ICD-10 - Z12.11) PLAN OF TREATMENT No Information
--- OUTSIDE RECORDS SUMMARY | 2024-10-13 13:45 | XMS_ITS ---
Author Organization [facility] Address [address] [facility] [address] [place] [address] Care Team Providers Care Conveyor Tender Name Role Phone Fiorella Coronel MD Primary Care Provider Lillian Sorto Jr, Edwin Weiss [phone] REASON FOR VISIT scripts MEDICATIONS Medication SIG (Take, Route, Frequency, Duration) Notes Start Date End Date Status MiraLax (colon prep) 8.3 ounce ((238) grams mixed with Gatorade or Crystal Light orally begin at 5:00 p.m. the day before the procedure for 1 day 09/20/2023 Active Dulcolax (colon prep) 5 MG take at 3:00 p.m and 7:00p.m. Orally two tablets twice a day for one day for 1 day 09/20/2023 Active Encounters Encounter Location Date Provider Diagnosis [facility] [address] [address] 09/19/2023 Edwin Sorto Jr PLAN OF TREATMENT Medication Medication Name Sig Start Date Stop Date Notes MiraLax (colon prep) 8.3 oun ce ((238) grams mixed with Gatorade or Crystal Light orally begin at 5:00 p.m. the day before the procedure for 1 day 09/20/2023 Dulcolax (colon prep) 5 MG take at 3:00 p.m and 7:00p.m. Orally two tablets twice a day for one day for 1 day 09/20/2023
--- OUTSIDE RECORDS SUMMARY | 2024-10-13 13:45 | XMS_ITS | Clinical Summary ---
Author Organization [facility] Address [address] [place] [address] Care Team Providers Care Marketing Proposal Coordinator Name Role Phone Unavailable Primary Care Provider [...] Name Administration Dates Next Due Hepatitis B (Tauskle-X-Lnybi , Recombivax HB-Adult) 19yo and older 10/30/2016,05/29/2016,04/26/2016 Surgical History Surgery Date Site/Laterality Comments CATARACT EXTRACTION PROCEDURE: HISTORICAL CATARACT REMOVAL OTHER SURGICAL HISTORY PROCEDURE: IN UNLISTED PROCEDURE EXTRAOCULAR MUSCLE OTHER SURGICAL HISTORY PROCEDURE: ARTHROSCOPY PROCEDURE NEC CARPAL TUNNEL RELEASE PROCEDURE: IN NEUROPLASTY &/TRANSPOS MEDIAN NRV CARPAL TUNNE Medical [...] EST Office Visit Obstetrics and Gynecology - [address] [address] Diandra Sparks, [facility] [address] [place] [address] Health Maintenance Due Date Last Done Comments [...]
--- OUTSIDE RECORDS SUMMARY | 2024-10-13 13:45 | XMS_ITS ---
Author Organization [facility] Address [address] [place] [address] Care Team Providers Care Associate Brand Manager Name Role Phone Po Fiorella CA Primary Care Provider Edwin Yi Jr Unavailable [phone] ALLERGIES Allergen (clinical drug ingredient) Drug/Non Drug Allergy documented on EMR Reaction Allergy Type Onset Date Status Penicillin Unknown Drug Allergy Active REASON FOR VISIT Patient presents today for a screeniing colon MEDICATIONS Medication SIG (Take, Route, Frequency, Duration) Notes Start Date End Date Status Transderm-iQ Active clonazePAM 0.5 MG (Schedule IV Drug) O ral for 30 Active Colyte with Flavor Packs 240 GM As directed Orally Over the specified time. for 1 day(s) Active Famotidine 40 MG Orally Act marline Citalopram Hydrobromide 20 MG TK 1 T PO D Oral for 30 Acti ve Arthritis Pain Reliever 650 MG TK 1 T PO BID PRN Oral for 30 Active Rosuvastatin Calcium 10 MG TK 1 T PO QD Oral for 30 Active Amitriptyline HCl 50 MG TK 1 T PO QHS Or al for 90 Active Gabapentin 300 MG TAKE ONE CAPSULE BY MOUTH TWICE DAILY Oral for 90 Active Calcium 500 + D 500-125 MG-UNIT TK 1 T PO BID WF Oral for 30 Active Arthritis Pain Relief 650 MG TK 1 T PO B ID PRN Oral for 30 Active Lisinopril 10 MG TK 1 T PO QD Oral for 30 Active Vitamin D 1000 UNIT TK 1 T PO ONCE A DAY Oral for 30 Active Fluticasone Propionate 50 MCG/ACT SPRAY ONCE IN EACH NOSTRIL ONCE A DAY Nasal for 30 Active Alendronate Sodium 70 MG Oral for 28 Active MiraLax (colon prep) 17 GM/SCOOP mixed with Gatorade or Crystal Light Orally begin at 5:00 p.m. the day before the procedure for 1 day 06/18/2023 Active SOCIAL HISTORY Tobacco Use: Social History Observation [...] W/U Status Risk SNOMED Code Notes Problem Family history of colon cancer (Z80.0) Active confirmed [id number] VITAL SIGNS BMI 33.19 kg/m2 06/18/2023 Blood pressure systolic 000 mm Hg 06/18/20 23 Blood pressure diastolic 00 mm Hg 023 Height 63 in 06/18/2023 Temperature 98.2 degrees Fahrenheit 06/18/20 23 Weight 187 lb 6 oz lbs 06/18/2023 Encounters Encounter Location Date Provider Diagnosis [facility] [address] [place] [id number] 06/18/2023 Edwin Sorto Jr Colon cancer screening Z12.11 and Family history of colon cancer Z80.0 ASSESSMENTS Encounter Date Diagnosis Assessment Notes Treatment Notes Treatment Clinical Notes 06/18/2023 Colon cancer screening (ICD-10 - Z12.11) Colonoscopy material was printed 06/18/2023 Family history of colon cancer (ICD-10 - Z80.0) PLAN OF TREATMENT Medication Medication Name Sig Start Date Stop Date Notes MiraLax (colon prep) 17 GM/SCOOP mixed with Gatorade or Crystal Light Orally begin at 5:00 p.m. the day before the procedure for 1 day 06/18/2023 Treatment Notes Assessment Notes Colon cancer screening Colonoscopy mater ial was printed Future Test Test Name Order Date COLONOSCOPY 06/18/2023 Next Appt Details Follow Up: 1 Year, Reason: Progress Notes * Examination Category Sub-Category Detail Notes General Examination GENERAL APPEARANCE: in no ac [place] distress HEAD: normocephalic EYES: sclera non-icteric NECK/THYROID: no lymphadenopathy HEART: S1, S2 normal, no mu rmurs CHEST: normal shape and exp ansion LUNGS: clear to auscultatio n bilaterally ABDOMEN: soft, nontender, non distended, bowel sounds present, no organomegaly SKIN: anicteric EXTREMITIES: no clubbing, cyanosi s, or edema PSYCH: cognitive function i ntact ORAL CAVITY: mucosa moist
== END 2024-10-13 10:10 | disposition home or self-care (01) ==
PROVIDERS: PCP Internal Medicine; Visit Provider Nurse Practitioner Family
DX: Z87.442 Personal history of urinary calculi (principal); N28.1 Cyst of kidney, acquired; Z13.9 Encounter for screening, unspecified
CPT/HCPCS: 99213; G2211

== ENCOUNTER → 2024-10-13 09:23 | Outpatient (BNVA) | payer OTHER, SELFPAY | PROVIDERS: PCP Internal Medicine; Visit Provider Nurse Practitioner Family | DX: N28.1 Cyst of kidney, acquired (principal); Z87.442 Personal history of urinary calculi; Z87.440 Personal history of urinary (tract) infections | CPT/HCPCS: 81003; 99212 ==

== ENCOUNTER 2025-01-09 09:46 | Outpatient (AMB) | payer OTHER, SELFPAY ==
--- OUTSIDE RECORDS SUMMARY | 2025-01-09 10:04 | XMS_ITS | Clinical Summary ---
Author Organization [address] Address [address] [place] [id number] Phone Care Team Providers Care Certified Medical Assistant Name Role Phone Physician, No Pcp Primary Care Provider Unavaila ble Allergies Active Allergy Reactions Criticality Noted Date Comments Penicillins Itching 05/01/2017 Medications citalopram (CeleXA) 40 mg tablet Take 40 mg by mouth daily. Active amitriptyline (ELAVIL) 50 mg tablet at bedtime. Active gabapentin (NEURONTIN) 300 mg capsule Take 300 mg by mouth 2 times daily. Active rosuvastatin (CRESTOR) 5 mg tablet Take 5 mg by mouth daily. Active lisinopriL (PRINIVIL,ZESTRI L) 5 mg tablet Take 5 mg by mouth daily. Active clonazePAM (KlonoPIN) 0.5 mg tablet Take 0.5 mg by mouth 2 times daily as needed. Active cholecalciferol, vitamin D3, 25 mcg (1,000 unit) tablet,chewable Take 1 tablet by mouth daily. Active calcium carbonate-vitami n D3 500 mg-3.125 mcg (125 unit) tablet per tabelt Take 1 tablet by mouth 2 times daily. Active acetaminophen (TYLENOL) 325 mg tablet Take 650 mg by mouth every 6 hours as needed. Active famotidine (PEPCID) 40 mg tablet Take 40 mg by mouth daily. Active Active Problems Problem Noted Date Diagnosed Date Fibromyalgia 08/18/2024 Hypertension 08/18/2024 Peripheral vascular disease, unspecified (CMS/HC C V24) 08/18/2024 Encounters Date Type Department Care Team Description 10/22/2024 10:30 AM EST Office Visit Obstetrics and Gynecology [address] [place] [id number] Diandra Sparks, AJIT Encounter for gynecological examination without abnormal finding (Primary Dx) from Last 3 Months Immunizations Name Administration Dates Next Due Hepatitis B (Tyuoyaz-H-Umsxl , Recombivax HB-Adult) 19yo and older 10/30/2016,05/29/2016,04/26/2016 Surgical History Surgery Date Site/Laterality Comments CATARACT EXTRACTION PROCEDURE: HISTORICAL CATARACT REMOVAL OTHER SURGICAL HISTORY PROCEDURE: [place] UNLISTED PROCEDURE EXTRAOCULAR MUSCLE OTHER SURGICAL HISTORY PROCEDURE: ARTHROSCOPY PROCEDURE NEC CARPAL TUNNEL RELEASE PROCEDURE: [place] NEUROPLASTY &/TRANSPOS MEDIAN NRV CARPAL TUNNE Medical History Medical History Date Comments Fibromyalgia DX:Fibromyalgia Elevated cholesterol DX:Elevated cholesterol Hypertension DX:Hypertension Peripheral vascular disease, unspecified (CMS/HCC V24) DX:Peripheral vascular disea se, unspecified (HCC) Depression DX:Depression Anxiety state DX:Anxiety state Generalized osteoarthrosis, unspecified site DX:Generalized osteoarthrosi s, unspecified site; COMMENT: arthritis,fibromyalgia Family History Medical History Relation Name Comments Breast cancer Aunt over 50 Colon cancer Brother Arthritis Father Stroke Father Arthritis Mother Diabetes Mother Hypertension Mother Uterine cancer Mother Ovarian cancer Neg Hx Pancreatic cancer Neg Hx Prostate cancer Neg Hx Relation Name Status Comments Aunt Brother Alive Father Mother Social History Tobacco Use Types Packs/Day Years Used Date Smoking Tobacco: Never Smokeless Tobacco: Never Tobacco Cessation:Counseling Given: Not Answered Alcohol Use Standard Drinks/Week Comments No 0 (1 standard drink = 0.6 oz pur e alcohol) Comments No Sex and Gender Information Value Date Recorded Sex Assigned at Not on file Legal Sex Female 2:11 AM EST Gender Identity Not on file Sexual Orientation Not on file Obstetrics History Para Term AB IAB SAB Ectopic Multiple Livin g Live Births 6 6 Date Outcome GA Total Labor Labor/2nd/3rd Weight Sex Type Anes PTL Barbi A1 A5 Name Clin Para Para Para Para Para Para Last Filed Vital Signs Vital Sign Reading Time Taken Comments Blood Pressure 130/74 10/22/2024 10:31 AM EST Pulse 77 10/22/2024 10:31 AM EST Temperature - - Respiratory Rate - - Oxygen Saturation - - Inhaled Oxygen Concentration - - Weight 85.7 kg (189 lb) 10/22/2024 10:31 AM EST Height - - Body Mass Index - - Plan of Treatment Health Maintenance Due Date Last Done Comments Zoster Vaccines (2 of 3) 06/09/2015 04/14/2015 RSV Immunization Adult Patients (1 - 1-dose 75+ series) 2022 Cholesterol Screening (Lipid Panel) 08/27/2022 Depression Screening 08/27/2022 Falls Risk Assessment 08/27/2022 Hepatitis C Screening 08/27/2022 Medicare Annual Wellness Visit 08/27/2022 Osteoporosis Screening (Bone Density Screening) 08/27/2022 Social Influencers of Health Screening 08/27/2022 Hypertension/CHF/CAD Annual BMP Blood Test 08/31/2022 COVID-19 Vaccine ( season) 2024 01/21/2021, 12/31/2020 DTaP,Tdap,and Td Vaccines (2 - Td or Tdap) 10/02/2032 10/02/2022 Hepatitis B Vaccines Completed 10/30/2016, 05/29/2016, 04/26/2016 Pneumococcal Vaccine: 50+ Years Completed 07/17/2022, 10/19/2017 Influenza Vaccine Completed 07/30/2024, , 07/17/2022, Additional history exists HIB Vaccines Aged Out No longer eligi [...] patient's age to complete this topic Meningococcal B Vaccine Aged Out No l onger eligible based on patient's age to complete this topic RSV Immunization Patients Under 20 months Aged Out No longer eligible based on patient's age to complete this topic Varicella Vaccines Aged Out No longer eligible based on patient's age to complete this topic Insurance [place] SKIP [id number] [employer] MEDICARE Member Subscriber Plan / Payer (Ef fective 2013-Present) Name:Trina Merchant Relation to Subscriber:Self Name:Trina Merchant Payer ID:[id number] Group ID:[id number] Type:Not on file Address: [facility] [address] [id number] Care Teams Certified Medical Assistant Relationship Specialty Start Date End Date Physician, No Pcp PCP - General 10/21/24
[2025-01-09 10:14] VITALS: BP 144/78; PULSE 71; O2SAT 94; BMI 33.3
--- NOTE | 2025-01-09 10:14 | A.OFFPC_ITS ---
Vital Signs 01/09/25 10:14 01/09/25 10:33 Height 5 ft 3 in Weight 188 lb BMI 33.3 BP 144/78 H 142/80 H Blood Pressure Location Lt brachial Lt brachial Position Sitting Sitting Pulse 71 Pulse Source Pulse Oximeter Pulse Oximetry (%) 94 Oxygen Delivery Method Room Air Intake Visit Reasons: Hypertension Allergies Penicillins [PENICILLINS] Allergy (Intermediate, Verified 01/09/25 10:15) RASH,ITCHING hydrochlorothiazide Adverse Reaction (Intermediate, Verified 01/09/25 10:15) dizzy Medication List - Last Reconciled 01/09/25 by Fiorella Coronel MD acetaminophen ER (Tylenol Arthritis Pain) 650 mg PO BID PRN alendronate 70 mg PO QWEEK amitriptyline 50 mg PO BEDTIME calcium carbonate-vitamin D3 500 mg-3.125 mcg (125 unit) 1 tab PO BID cholecalciferol (vitamin D3) 125 mcg PO DAILY citalopram 20 mg PO DAILY clonazepam 0.5 mg PO DAILY PRN compress.stocking,knee,reg,lrg As directed cyanocobalamin (vitamin B-12) 1,000 mcg PO DAILY 90 days diclofenac sodium 1% (Voltaren Arthritis Pain) 4 grams topical QID fluticasone propionate 50 mcg/actuation (Flonase Allergy Relief) 1 spray intranasal DAILY gabapentin 300 mg PO BID lidocain-me.chpordb-buur-txqln 4-20-0.0375-10 % (Transderm-iQ) 1 ea topical lisinopril 30 mg PO DAILY loratadine 10 mg PO DAILY 90 days [Poise PAds [id number] As directed] [Reclining Chair As directed] rosuvastatin 20 mg PO DAILY tizanidine 4 mg PO BEDTIME PRN Tobacco use date assessed: 10/08/24 Fall risk assessment: No Falls in past year Last assessed Fall Risk: 01/09/25 Dental Screening Dental Screen Date: 10/08/24 [facility] Medical History Nephrolithiasis Knee pain, right Rotator cuff arthropathy of both shoulders Shoulder subluxation, right Subconjunctival hemorrhage of right eye Annual physical exam Eczematous dermatitis Bilateral hand numbness Urinary incontinence Shoulder pain, bilateral Osteoarthritis, knee Cataract Carpal tunnel syndrome Gout Anxiety and depression GERD (gastroesophageal reflux disease) Hypertension Hypercholesterolemia History of renal calculi Osteoporosis Migraine Impaired fasting glucose Peripheral vascular disease Obesity (BMI 30-39.9) Fibromyalgia Surgical History S/P excision of lipoma (10/01/23) Hx of blepharoplasty H/O colonoscopy History of shoulder surgery (12/12/22) History of cataract surgery History of carpal tunnel release Family History Father CVD (cardiovascular disease) Stroke Mother Diabetes Hypertension Maternal Aunt Breast cancer Brother Intestinal cancer Social History Housing: Apartment Alcohol intake: never Patient Tobacco Use Status: Never used Tobacco Tobacco use type: Cigarette e-Cigarette/Vaping Use: Never Used Second Hand Smoke Exposure: No service: No Current occupational status: disabled Current occupation: Rt handed Cognitive needs: No Hearing needs: No Vision needs: Yes Questionnaire PHQ-9 Over the last 2 weeks, how often have you been bothered by any of the following problems? 1. Little interest or pleasure in doing things: several days 2. Feeling down, depressed, or hopeless: several days 3. Trouble falling or staying asleep, or sleeping too much: more than half the days 4. Feeling tired or having little energy: more than half the days 5. Poor appetite or overeating: not at all 6. Feeling bad about yourself - or that you are a failure or have let yourself or your family down: not at all 7. Trouble concentrating on things, such as reading the newspaper or watching television: more than half the days 8. Moving or speaking so slowly that other people could have noticed. Or the opposite - being so fidgety or restless that you have been moving around a lot more than usual: not at all 9. Thoughts that you would be better off or of hurting yourself in some way: not at all Total score: 8 Depression Screening Interpretation: Positive Depression Screening Done: Yes 31574 - PHQ-9 Billing: Yes Source: Developed by Drs. Christopher Lynne, Mera Kebede, Ron Flores and colleagues, with an educational wicho from [employer]. Thrive Questionnaire Date Thrive assessed: 10/08/24 I am a: Patient What is your living situation today?: I have a steady place to live Within the past 12 months, did the food you bought not last and you didn't have the money to get more?: Never true Within the past 12 months, did you worry whether your food would run out before you got money to buy more?: Never true Do you have trouble paying for medicines?: No Do you have trouble getting transportation to medical appointments?: No Do you have trouble paying your heating and electricity bill?: No Do you have trouble taking care of your child, family member or friend?: No Do you have trouble with day-to-day activities such as bathing, preparing meals, shopping, managing finances, etc.?: Yes Are you currently unemployed and looking for a job?: No Are you interested in more education?: No Please select the resources that you would like help with: None Currently or been in a relationship where the following occur: No concerns reported THRIVE Score: 0 AUDIT C Alcohol Use Questionnaire (AUDIT-C) 1. How often do you have a drink containing alcohol?: Never Total Score: 0 WAGNER-7 AMB Questionnaire WAGNER-7 Date WAGNER - 7 assessed: 10/08/24 Source: Developed by Drs. Christopher Lynne, Mera Kebede, Ron Flores and colleagues, with an educational wicho from [employer]. Physical exam (Primary Care) Vital Signs: Last Vital Signs Pulse 71 01/09/25 10:14 BP 142/80 H 01/09/25 10:33 Pulse Ox 94 01/09/25 10:14 Oxygen Delivery Method Room Air 01/09/25 10:14 BMI result Body Mass Index 33.3 Tobacco/Smoking Status: Tobacco use Status Tobacco use date assessed 10/08/24 01/09/25 10:16 Patient Tobacco Use Status Never used Tobacco 01/09/25 10:16 Tobacco use type Cigarette 01/09/25 10:16 e-Cigarette/Vaping Use Never Used 01/09/25 10:16 PHQ-9: PHQ-9 Score PHQ-9: Total score 8 01/09/25 10:31 Depression Screening Interpretation: Positive Thrive Assessment: Date of Thrive Assessment Date Thrive assessed 10/08/24 01/09/25 10:16 Currently or been in a relationship where the following occur: No concerns reported Const General: alert; No acute distress Eyes Conjunctivae: conjunctivae normal Resp Auscultation: clear to auscultation bilaterally Cardio Rate: regular rate Rhythm: regular rhythm GI Inspection: Yes normal to inspection Extrem General: Yes normal to inspection and No edema Coding Level of Care Code Est Pt Level 4 (56215) Complex EM visit Add On G2211 Diagnoses Obesity (BMI 30-39.9) E66.9 Impaired fasting glucose R73.01 Hypercholesterolemia E78.00 Primary hypertension I10 Hypertension type: primary hypertension Gastroesophageal reflux disease without esophagitis K21.9 Esophagitis presence: without esophagitis History of renal calculi Z87.442 Generalized anxiety disorder F41.1 Additional Codes PHQ-9 - 39725 - PHQ-9 Billing: Yes ([id number]) Assessment & Plan Assessment & Plan (1) Obesity (BMI 30-39.9): Code(s): E66.9 - Obesity, unspecified Category: Medical Plan: Diet and exercise (2) Impaired fasting glucose: Code(s): R73.01 - Impaired fasting glucose Category: Medical Plan: Decrease the amount of carbohydrate intake, pasta, bread, rice and potatoes are all sugar and that is aside from all the sweet stuff, remember that fruits are good but they are Sweet also. (3) Hypercholesterolemia: Code(s): E78.00 - Pure hypercholesterolemia, unspecified Category: Medical Plan: Avoid fried foods, chicken skin, eggs, butter margarine, pastries and meat. Be it pork or beef they have a lot of cholesterol LDL goal of less than 130 and triglyceride of less than 150. Patient on rosuvastatin 20 mg once a day (4) Hypertension: Code(s): I10 - Essential (primary) hypertension Category: Medical Qualifiers: Hypertension type: primary hypertension Qualified Code(s): I10 - Essential (primary) hypertension Plan: Continue with blood pressure medication. Decrease salt intake and exercise patient is on lisinopril 20 mg once a day (5) GERD (gastroesophageal reflux disease): Code(s): K21.9 - Gastro-esophageal reflux disease without esophagitis Category: Medical Qualifiers: Esophagitis presence: without esophagitis Qualified Code(s): K21.9 - Gastro-esophageal reflux disease without esophagitis Plan: Avoid the foods that causes that usually spicy foods, tomato products, juices, coffee, soda and foods that your sensitive to. After eating do not lie down, allow 3-4 hours before in lie down. And keep the head of bed above 30 degrees to avoid the acid from going up. (6) History of renal calculi: Comment: US done 2023 negative Code(s): Z87.442 - Personal history of urinary calculi Category: Medical Plan: Patient's last test was negative for stone and for the renal cyst reassurance. Patient has seen Urology (7) Generalized anxiety disorder: Comment: [facility] Code(s): F41.1 - Generalized anxiety disorder Category: Medical Plan: Patient follows up with counseling and therapy continue with citalopram clonazepam amitriptyline gabapentin Plan History of Present Illness The patient is a 79-year-old female presenting with follow-up for hypertension management and knee osteoarthritis. She has essential hypertension and recent blood pressure readings fluctuating between 130-140 mmHg systolic. Her blood pressure tends to improve with her anxiety medication intake. She has osteoar thritis in the knee, managed with topical gel and supplements such as glucosamine chondroitin, which has provided some relief. The patient's hypercholesterolemia and GERD are managed with medication, and she undergoes therapy for generalized anxiety disorder, taking citalopram daily, with clonazepam as needed. She also takes amitriptyline at night for sleep. Health Maintenance - Last colonoscopy: September 2023 - Mammogram: Up to date as of July 2024 - Bone density test completed: June 2023 - Stable glucose levels with Hemoglobin A1c at 5.9% - Normal liver function and lipid panel with LDL at 83 as of July 2024 - Thyroid function tests completed: March - Encouragement of regular diet and exercise Social History - Actively follows counseling and therapy - Encouraged to maintain regular physical activity - Advised on dietary habits and weight management - Reports a consistent intake of anxiety and depression medications Review of Systems - Cardiovascular: Reports stable blood pressure but with fluctuations; Denies any recent chest pain or palpitations - Musculoskeletal: Reports knee pain associated with osteoarthritis - Psychiatric: Reports anxiety managed with medication; Denies any new mood disturbances - Gastrointestinal: Denies current GERD symptoms - Endocrine: Reports stability in glucose levels; Denies new symptoms suggestive of diabetes Physical Exam Results - Labs: Normal blood count, electrolytes, renal function; HbA1c 5.9% - Lipid panel: LDL 83 (target below 130), triglycerides within desired range - No abnormalities detected in recent blood work Plan During the visit, I have adjusted the lisinopril dosage to 30 mg daily for optimized hypertension control. Blood pressure readings are to be monitored regularly, considering the correlation with her anxiety medication. Pending blood work is planned for upcoming months. Osteoarthritis treatment continues with the current regimen. Citalopram and clonazepam usage will remain as is, coinciding with ongoing therapeutic interventions for anxiety. Patient was informed and verbally consented to the use of an ambient scribe for clinic note documentation during this visit. Discussion Notes I discussed the potential benefits, risks, and options for managing her hypertension, particularly focusing on the importance of consistent medication adherence and the impact of lifestyle factors on disease management. The decision to alter the lisinopril dosage was made collaboratively, with a clear understanding that closer monitoring is required. We reviewed the management of osteoarthritis, including the continued use of non-pharmacologic aids like joint supplements. Discussed potential complications affecting kidney function and gastrointestinal health if additional medications are considered in the future. Encouraged her to maintain the current medication regimen for anxiety and depression, with a reevaluation planned after further blood monitoring. Follow- up requires no immediate need unless new symptoms appear or current symptomatology worsens. Patient Instructions - Monitor blood pressure readings regularly at home. - Continue taking lisinopril 30 mg daily as prescribed. - Use knee pain relief gel three times a day and evaluate the effectiveness. - Consider glucosamine chondroitin supplements; reassess effectiveness after first use. - Take citalopram daily and clonazepam as needed for anxiety. - Maintain regular exercise and stay active. - Schedule blood work three months from now. - Report any significant changes in symptoms or if knee pain increases. Orders: Orders Hemoglobin A1c 3 Months E78.00 - Pure hypercholesterolemia, unspecified Thyroid Stimulating Hormone 3 Months E78.00 - Pure hypercholesterolemia, unspecified Complete Blood Count Auto Diff 3 Months E78.00 - Pure hypercholesterolemia, un specified Free T4 (Free Thyroxine) 3 Months E78.00 - Pure hypercholesterolemia, unspecified UA w Microscopic 3 Months E78.00 - Pure hypercholesterolemia, unspecified Vitamin B12 and Folate 3 Months E78.00 - Pure hypercholesterolemia, unspecified Vitamin D 25-OH Total 3 Months E78.00 - Pure hypercholesterolemia, unspecified Lipid Panel 3 Months E78.00 - Pure hypercholesterolemia, unspecified Comprehensive Met. Panel 3 Months E78.00 - Pure hypercholesterolemia, unspecified Medications: Changed From lisinopril 20 mg PO DAILY 90 tabs 3RF To lisinopril 30 mg PO DAILY 30 tabs 3RF Refilled diclofenac sodium 1% (Voltaren Arthritis Pain) apply to single knee, ankle, foot; for foot includes sole/toes/top of foot 4 grams topical QID 100 grams 4RF M17.10 - Unilateral primary osteoarthritis, unspecified knee
[2025-01-09 10:33] VITALS: BP 142/80
== END 2025-01-09 10:44 | disposition home or self-care (01) ==
LOC: HO.HMCH 09:47
PROVIDERS: PCP Internal Medicine; Visit Provider Internal Medicine
DX: R73.01 Impaired fasting glucose (principal); E66.9 Obesity, unspecified; E78.00 Pure hypercholesterolemia, unspecified; Z68.33 Body mass index [BMI] 33.0-33.9, adult; I10 Essential (primary) hypertension; K21.9 Gastro-esophageal reflux disease without esophagitis; Z87.442 Personal history of urinary calculi; F41.1 Generalized anxiety disorder

== ENCOUNTER → 2025-01-09 09:46 | Outpatient (BNVA) | payer OTHER, SELFPAY | PROVIDERS: PCP Internal Medicine; Visit Provider Internal Medicine | DX: I10 Essential (primary) hypertension (principal); E66.9 Obesity, unspecified; Z68.33 Body mass index [BMI] 33.0-33.9, adult; R73.01 Impaired fasting glucose; E78.00 Pure hypercholesterolemia, unspecified; K21.9 Gastro-esophageal reflux disease without esophagitis; F41.1 Generalized anxiety disorder; Z79.899 Other long term (current) drug therapy; Z87.442 Personal history of urinary calculi | CPT/HCPCS: 96127; 99212 ==

== ENCOUNTER 2025-04-13 10:13 | Outpatient (REF) | payer OTHER, SELFPAY | END 2025-04-13 10:14 | disposition home or self-care (01) | LOC: HO.LAB 10:13 | PROVIDERS: PCP Internal Medicine; Visit Provider Nurse Practitioner Family | DX: N28.1 Cyst of kidney, acquired (principal); R31.29 Other microscopic hematuria; Z87.442 Personal history of urinary calculi; Z13.89 Encounter for screening for other disorder | CPT/HCPCS: 51798; 81003; 88112; 99212 ==

== ENCOUNTER 2025-04-13 10:13 | Outpatient (AMB) | payer OTHER, SELFPAY ==
--- NOTE | 2025-04-13 10:20 | A.OFFVIS_ITS ---
Intake Visit Reasons: 6m/PVR Intake Note: Patient is present for 6M/PVR Urology Medication:NONE Antibiotic Allergy:PENICILLINS Blood Thinner:NONE TODAY'S PVR:0ML'S Motor Vehicle Escort Driver Required: No Allergies Penicillins (PENICILLINS) Allergy (Intermediate, Verified 04/13/25 10:57) RASH,ITCHING hydrochlorothiazide Adverse Reaction (Intermediate, Verified 04/13/25 10:57) dizzy Medication List - Last Reconciled 04/13/25 by JESSICA Medellin acetaminophen ER (Tylenol Arthritis Pain) 650 mg PO BID PRN alendronate 70 mg PO QWEEK amitriptyline 50 mg PO BEDTIME cholecalciferol (vitamin D3) 125 mcg PO DAILY citalopram 20 mg PO DAILY clonazepam 0.5 mg PO DAILY PRN compress.stocking,knee,reg,lrg As directed cyanocobalamin (vitamin B-12) 1,000 mcg PO DAILY 90 days diclofenac sodium 1% (Voltaren Arthritis Pain) 4 grams topical QID fluticasone propionate 50 mcg/actuation (Flonase Allergy Relief) 1 spray intranasal DAILY lidocain-me.ekrhhee-zylx-cidfp 4-20-0.0375-10 % (Transderm-iQ) 1 ea topical lisinopril 30 mg PO DAILY loratadine 10 mg PO DAILY 90 days [Poise PAds [id number] As directed] [Reclining Chair As directed] rosuvastatin 20 mg PO DAILY HPI Comments Details: Trina is a pleasant 80 year old Comoran speaking female patient of Dr. Coronel who was accompanied by her daughter at today's office visit. Motor Vehicle Escort Driver offered however decline. Patient would like daughter to translate during today's office visit. She has a past medical history of nephrolithiasis, rotator cuff atrophy bilaterally, osteoarthritis, carpal tunnel, anxiety, depression, GERD, hypertension, hypercholesteremia, migraines, peripheral vascular disease, and fibromyalgia. She presents to the office today for follow-up of her renal cysts, nephrolithiasis, microscopic hematuria and urinary tract infections. In discussion with the patient today she denies having had any bothersome urinary issues or concerns since her last office visit a year ago. She denies urinary urgency, urinary frequency, incontinence, nocturia, hematuria, dysuria, foul smelling urine, changes to urinary stream, flank pain, fever, and or chills. She is happy with her current voiding parameters. In office urinalysis results reviewed with the patient today. 1+ microscopic hematuria otherwise within normal limits. We did discussed potential causes of microscopic hematuria as well as further workup in risks and benefits of these interventions. I discussed reasons for blood in the urine may include but are not limited to kidney stones, cancer in the urinary tract, BPH, kidney stone disease or inflammatory conditions of the urinary tract. I have discussed workup to include cystoscopy evaluation. Previous workup has included renal ultrasound 10/11 No calculi, hydronephrosis, or masslike of either kidney. There is a small simple cortical cysts measuring 0.8 cm in the mid pole of the right kidney. Mild pelvic fullness of the right kidney without gross hydronephrosis, unchanged when compared to prior exam. All questions were answered. PVR 0 mL. She otherwise offers no other issues or concerns at this time. Urine Cytology: 03/08 and 10/09 Negative for high grade urothelial carcinoma. [facility] Medical History Nephrolithiasis Knee pain, right Rotator cuff arthropathy of both shoulders Shoulder subluxation, right Subconjunctival hemorrhage of right eye Annual physical exam Eczematous dermatitis Bilateral hand numbness Urinary incontinence Shoulder pain, bilateral Osteoarthritis, knee Cataract Carpal tunnel syndrome Gout Anxiety and depression GERD (gastroesophageal reflux disease) Hypertension Hypercholesterolemia History of renal calculi Osteoporosis Migraine Impaired fasting glucose Peripheral vascular disease Obesity (BMI 30-39.9) Fibromyalgia Surgical History S/P excision of lipoma (10/01/23) Hx of blepharoplasty H/O colonoscopy History of shoulder surgery (12/12/22) History of cataract surgery History of carpal tunnel release Family History Father CVD (cardiovascular disease) Stroke Mother Diabetes Hypertension Maternal Aunt Breast cancer Brother Intestinal cancer Social History Housing: Apartment Alcohol intake: never Patient Tobacco Use Status: Never used Tobacco Tobacco use type: Cigarette e-Cigarette/Vaping Use: Never Used Second Hand Smoke Exposure: No service: No Current occupational status: disabled Current occupation: Rt handed Cognitive needs: No Hearing needs: No Vision needs: Yes Review of Systems Const Reports no additional complaints Eyes Reports no additional complaints ENT Reports no additional complaints Card Reports no additional complaints Resp Reports no additional complaints GI Reports no additional complaints Reports as per HPI Musc Reports no additional complaints Neuro Reports no additional complaints Psych Reports no additional complaints Endo Reports no additional complaints Marvel/Lymph Reports no additional complaints Aller/Immun Reports no additional complaints Physical Exam Const General: cooperative, healthy appearing, comfortable, no acute distress, well developed, alert and awake Orientation/consciousness: patient oriented x3 Limitations: language barrier HEENT Head: Yes normal to inspection, Yes normocephalic and Yes atraumatic Ears: hearing grossly normal bilaterally Eyes General: appearance normal, both eyes and all related structures Neck Neck: Yes normal visual inspection and Yes trachea midline Chest Chest palpation & inspection: normal inspection of the chest Resp Effort & Inspection: normal respiratory effort and able to speak in complete sentences Cardio Rate: regular rate GI Inspection: Yes normal to inspection General: Yes no CVA tenderness Back/Spine/Pelvis Back: no CVA tenderness Skin General skin exam: no rashes or lesions noted Neuro General: patient oriented x3 Extrem General: Yes normal to inspection Psych Appearance: grossly normal and well kempt Mental Status: mental status grossly normal Speech and movement: Normal speech and movement present and Clear speech present Affect: normal affect Attitude: cooperative Thought process: Normal thought process present Thought content: Normal thought content present Insight: Fair insight present (Psych) Judgement: Fair judgement present (Psych) Office Procedures Post Void Residual Post Residual Void Post Void Residual (PVR): 0 [id number] Void Residual by ultrasound Results AMB Urinalysis, Automated UA Leukoctes 0 Ladarius/uL Last Edit by REKHA Payne on 04/13/25 10:42 UA Nitrite Negative Last Edit by REKHA Payne on 04/13/25 10:42 UA Urobilinogen 0.2 mg/dL Last Edit by REKHA Payne on 04/13/25 10:4 2 UA Protein 0 mg/dL Last Edit by REKHA Payne on 04/13/25 10:42 UA pH 6.0 Last Edit by REKHA Payne on 04/13/25 10:42 UA Blood 25 Esau/uL Last Edit by REKHA Payne on 04/13/25 10:42 UA Specific [place] 1.005 Last Edit by REKHA Payne on 04/13/25 10: 42 UA Ketone Negative Last Edit by REKHA Payne on 04/13/25 10:42 UA Bilirubin 0 mg/dL Last Edit by REKHA Payne on 04/13/25 10:42 UA Glucose 0 mg/dL Last Edit by REKHA Payne on 04/13/25 10:42 Results Reviewed Results Reviewed: Laboratory Last Values Urine pH (Auto) 6.0 04/13/25 10:34 Specific [place] (Auto) 1.005 04/13/25 10:34 Urine Protein (Auto) 0 mg/dL 04/13/25 10:34 Glucose (UA)(Auto) 0 mg/dL 04/13/25 10:34 Urine Ketones (Auto) Negative 04/13/25 10:34 Urine Blood (Auto) 25 Esau/uL 04/13/25 10:34 Urine Nitrite (Auto) Negative 04/13/25 10:34 Urine Bilirubin (Auto) 0 mg/dL 04/13/25 10:34 Urine Urobilinogen (Auto) 0.2 mg/dL 04/13/25 10:34 Leukocyte Esterase (Auto) 0 Ladarius/uL 04/13/25 10:34 Assessment & Plan Assessment & Plan (1) History of renal calculi: Comment: US done 2023 negative Code(s): Z87.442 - Personal history of urinary calculi Category: Medical (2) Renal cyst: Code(s): N28.1 - Cyst of kidney, acquired Category: Medical (3) Microscopic hematuria: Code(s): R31.29 - Other microscopic hematuria Category: Medical Plan In office urinalysis results reviewed with the patient today; as noted above; will send for urine cytology PVR 0 mL Will obtain retroperitoneal ultrasound in 1 year. She currently denies any bothersome urinary issues or concerns. We did discussed potential causes of nephrolithiasis, renal cysts, and microscopic hematuria; we discussed further interventions and risks and benefits of these interventions. Discussed, educated, and stressed the importance of drinking plenty of water daily in relation to nephrolithiasis, urinary tract infections, and overall health and well-being Continue adding 1 oz of lemon juice to water daily. She is happy with her current voiding parameters. Will continue with surveillance monitoring. Follow-up in 1 year with imaging and PVR; or sooner with any issues, concerns, and or questions. Orders: Orders AMB Urinalysis Automated Today Z13.9 - Encounter for screening, unspecified Urine Cytology Today R31.29 - Other microscopic hematuria US retroperitoneal comp 1 Year N28.1 - Cyst of kidney, acquired, R31.29 - Other microscopic hematuria, Z87.442 - Personal history of urinary calculi Patient Instructions: The patient had an opportunity to ask questions regarding the treatment plan. All questions were answered. Physical exam, labs, and imaging were discussed and reviewed in detail. As well as risks, benefits, and discussion of treatment choices. No major barriers to understanding were identified. The patient expressed understanding and agreement with the above treatment plan. The patient was made aware they should contact our office by phone for worsening of their current condition, the appearance of new symptoms, or with any questions or concerns. Compliance is encouraged with any medications and follow up testing that is ordered. It is a privilege to be allowed the opportunity to participate in? your urological care.? Again, if you have any questions or concerns If you have any questions or concerns please do not hesitate to contact me. The office is [phone]. This note is constructed using voice recognition software. While every effort has been made to ensure accuracy technical solutions engineer errors may have been included. Yours sincerely, JESSICA Medellin Coding Level of Care Code Est Pt Level 3 (52086) Complex EM visit Add On G2211 Diagnoses History of renal calculi Z87.442 Renal cyst N28.1 Microscopic hematuria R31.29 CPT Codes Post Residual Void - PVR CPT Code: 09142-[id number] Void Residual by ultrasound ([id number])
--- OUTSIDE RECORDS SUMMARY | 2025-04-13 11:16 | XMS_ITS | Clinical Summary ---
Author Organization [facility] [address] [facility] Address [address] [place] [phone] Phone Care Team Providers Care Door Person Name Role Phone Physician, No Pcp Primary [...] vascular disease, unspecified (CMS/HC C V24) 08/18/2024 Immunizations Name Administration Dates Next Due Hepatitis B (Pwmbocx-K-Nofaw , Recombivax HB-Adult) 19yo and older 10/30/2016,05/29/2016,04/26/2016 Surgical History Surgery Date Site/Laterality Comments CATARACT EXTRACTION PROCEDURE: HISTORICAL CATARACT REMOVAL OTHER SURGICAL HISTORY PROCEDURE: ME UNLISTED PROCEDURE EXTRAOCULAR MUSCLE OTHER SURGICAL HISTORY PROCEDURE: ARTHROSCOPY PROCEDURE NEC CARPAL TUNNEL RELEASE PROCEDURE: ME NEUROPLASTY &/TRANSPOS MEDIAN NRV CARPAL TUNNE Medical History Medical History Date Comments Fibromyalgia DX:Fibromyalgia Elevated cholesterol DX:Elevated cholesterol Hypertension DX:Hypertension Peripheral vascular disease, unspecified (CMS/HCC V24) DX:Peripheral vascular disea se, unspecified ([facility]) Depression DX:Depression Anxiety state DX:Anxiety state Generalized [...] series) 2022 Cholesterol Screening (Lipid Panel) 08/27/2022 Falls Risk Assessment 08/27/2022 Hepatitis C Screening 08/27/2022 Medicare Annual Wellness Visit 08/27/2022 Osteoporosis Screening (Bone Density Screening) 08/27/2022 Social Influencers of Health Screening 08/27/2022 Hypertension/CHF/CAD Annual BMP Blood Test 08/31/2022 COVID-19 Vaccine ( season) 2024 01/21/2021, 12/31/2020 Depression Screening 09/17/2024 Influenza Vaccine (#1) 2025 , 07/04/2023, 07/17/2022, Additional history exists DTaP,Tdap,and Td Vaccines (2 - Td or Tdap) 10/02/2032 10/02/2022 Hepatitis B Vaccines Completed 10/30/2016, 05/29/2016, 04/26/2016 Pneumococcal Vaccine: 50+ Years Completed 07/17/2022, 10/19/2017 HIB Vaccines Aged Out No longer eligi [...] patient's age to complete this topic Insurance [employer] MEDICARE Member Subscriber Plan / Payer (Ef fective 2013-Present) Name:Trina Merchant Relation to Subscriber:Self Name:Trina Merchant Payer ID:[id number] Group ID:[id number] Type:Not on file Address: [facility] [address] [id number] Care Teams Door Person Relationship Specialty Start Date End Date Physician, No Pcp PCP - General 10/21/24
--- OUTSIDE RECORDS SUMMARY | 2025-04-13 11:16 | XMS_ITS | Patient Health Record ---
Author Organization [facility] Address [address] [place] [address] Care Team Providers Care Combination Window Installer Name Role Phone [place] Primary Care Provider Edwin Yi Jr Unavailable [phone] Allergies Allergen (clinical drug ingredient) Drug/Non Drug Allergy documented on EMR Reaction Allergy Type Onset Date Status Penicillin Unknown Drug Allergy Active Reason For Referral No Information Medications Medication SIG (Take, Route, Frequency, Duration) Notes [...] Sodium 70 MG Oral for 28 Active Immunizations Vaccine Route Administration Date Status Comme nts Influenza Unknown 07/04/2022 Administered Social History Tobacco Use: Social History Observation Description Date Details (start date - stop date) Never Smoker NA - NA Tobacco Use/Smoking Question Answer Notes Patient is a nonsmoker Alcohol Screen Question Answer Notes Did you have a drink containing alcohol in the p ast year? No Points 0 Interpretation Negative Problems Problem Type SNOMED Code ICD Code Onset Dates Problem Status W/U Status Risk Notes Problem [id number] Colon cancer screening (Z12.11) Active confirmed Problem [id number] Family history of colon cancer (Z80.0) Active confirmed Plan Of Treatment Future Test Test Name Order Date COLONOSCOPY 11/01/2017 COLONOSCOPY 06/18/2023 Insurance Providers Payer Name Payer Address Payer Phone Subscriber Number Group Number Insured Name Patient Relationship to Insured Coverage Start Date Coverage End Date [facility] [address] Attn Claims [place] Cavazos [id number] JAY MONTIEL Self - patient is the insured [facility]ID [facility] [address] [place] [address] [phone] [id number] JAY MONTIEL Self - patient is the insured Medical (General) History Medical History History ICD Code Gastroesophageal reflux disease Hypertension Nephrolithiasis Anxiety/depression Fibromyalgia Elevated cholesterol Migraine headaches Colonoscopy 03/04, tubular adenoma, five- year followup Surgical History Surgery Date(Month/Year) carpal tunnel release bilateral cataracts blepharoplasty shoulder replacement right 12/12/22
== END 2025-04-13 10:54 | disposition home or self-care (01) ==
LOC: HO.HUSH 10:14
PROVIDERS: PCP Internal Medicine; Visit Provider Nurse Practitioner Family
DX: Z87.442 Personal history of urinary calculi (principal); N28.1 Cyst of kidney, acquired; R31.29 Other microscopic hematuria; Z13.9 Encounter for screening, unspecified
CPT/HCPCS: 99213; G2211

== ENCOUNTER 2025-04-28 09:59 | Outpatient (REF) | payer OTHER, SELFPAY ==
[2025-04-28 10:22] LABS: MANUAL DIFF FLAG NO
[2025-04-28 10:52] LABS: Appearance Urine Clear; Glucose Urine UA Negative (Negative); PH 5.5 (5.0-9.0); Specific Gravity - Urine 1.020 (1.005-1.025); UMIC TRIGGER UA YES
[2025-04-28 10:55] LABS: Hematocrit 36.1 % (37.0-47.0); Hemoglobin 12.0 g/dl (12.0-16.0); Imm Gran Abs Auto 0.02 X10*3/uL (0.00-0.03); Imm Gran Pct Auto 0.4 % (0.0-0.4); Lymphocytes Absolute Auto 1.5 X10*3/uL (1.2-4.9); Mean Corpuscular HGB Conc 33.2 g/dl (31.0-35.0); Mean Corpuscular Hemoglobin 28.8 pg (27.0-33.0); Mean Corpuscular Volume 86.8 fL (80.0-98.0); NRBC Abs Auto 0.000 X10*3/uL (0.0-0.012); NRBC Pct Auto 0.0 /100WBC (0.0-0.2); Platelet Count 211 X10*3/uL (160-400); Red Blood Count 4.16 X10*6/uL (4.20-5.50); White Blood Count 5.2 X10*3/uL (4.8-10.8)
--- OUTSIDE RECORDS SUMMARY | 2025-04-28 10:55 | XMS_ITS | Clinical Summary ---
Author Organization [facility] [address] [facility] Address [address] [place] [phone] Phone Care Team Providers Care Porcelain Enameler Name Role Phone Physician, No Pcp Primary [...] Name Administration Dates Next Due Hepatitis B (Qyihlyc-I-Gcgno , Recombivax HB-Adult) 19yo and older 10/30/2016,05/29/2016,04/26/2016 Surgical History Surgery Date Site/Laterality Comments CATARACT EXTRACTION PROCEDURE: HISTORICAL CATARACT REMOVAL OTHER SURGICAL HISTORY PROCEDURE: NE UNLISTED PROCEDURE EXTRAOCULAR MUSCLE OTHER SURGICAL HISTORY PROCEDURE: ARTHROSCOPY PROCEDURE NEC CARPAL TUNNEL RELEASE PROCEDURE: NE NEUROPLASTY &/TRANSPOS MEDIAN NRV CARPAL TUNNE Medical History Medical History Date Comments Fibromyalgia DX:Fibromyalgia Elevated cholesterol DX:Elevated cholesterol Hypertension DX:Hypertension Peripheral vascular disease, unspecified (CMS/HCC V24) DX:Peripheral vascular disea se, unspecified ([facility]) Depression DX:Depression Anxiety state DX:Anxiety [...] ID:[id number] Group ID:[id number] Type:Not on file Address: [facility] [address] [address] Care Teams Porcelain Enameler Relationship Specialty Start Date End Date Physician, No Pcp PCP - General 10/21/24
--- OUTSIDE RECORDS SUMMARY | 2025-04-28 10:55 | XMS_ITS | Patient Health Record ---
Author Organization [facility] Address [address] [place] [address] Care Team Providers Care Director Medical Economics Name Role Phone [place] Primary Care Provider Edwin Yi Jr Unavailable Allergies Allergen (clinical drug ingredient) Drug/Non Drug [...] Problem Status W/U Status Risk Notes Problem [id number] Colon cancer screening (Z12.11) Active confirmed Problem [id number] Family history of colon cancer (Z80.0) Active confirmed Plan Of Treatment Future Test Test Name Order Date COLONOSCOPY 11/01/2017 COLONOSCOPY 06/18/2023 Insurance Providers Payer Name Payer Address Payer Phone Subscriber Number Group Number Insured Name Patient Relationship to Insured Coverage Start Date Coverage End Date [facility] [address] Attn Claims [place]az[place] [id number] JAY MONTIEL Self - patient is the insured MEDICAID OF [facility] [address] [place] [address] [phone] [id number] JAY MONTIEL Self - patient is the insured Medical (General) History Medical History History ICD Code Gastroesophageal reflux disease Hypertension Nephrolithiasis Anxiety/depression Fibromyalgia Elevated cholesterol Migraine headaches Colonoscopy 03/04, tubular adenoma, five- year followup Surgical History Surgery Date(Month/Year) carpal tunnel release bilateral cataracts blepharoplasty shoulder replacement right 12/12/22
[2025-04-28 11:02] LABS: Hemoglobin A1C 142.9820 umol/L; Total Hemoglobin (HGBA1C) 3247.3248 umol/L
[2025-04-28 11:25] LABS: Alanine Aminotransferase 18 U/L (0-31); Albumin Level 4.3 g/dL (3.5-5.0); Alkaline Phosphatase 70 U/L (39-117); Anion Gap 13 (12-20); Aspartate Amino Transferase 23 U/L (5-31); Blood Urea Nitrogen 20 mg/dL (9-16); Calcium 9.3 mg/dL (8.4-10.2); Carbon Dioxide 30 mmol/L (22-29); Chloride 105 mmol/L (96-108); Cholesterol 180 mg/dL (<200); Estimated Glomerular Filt Rate 54; HDL Cholesterol 56 mg/dL (>40); Potassium 4.6 mmol/L (3.3-5.1); Sodium 143 mmol/L (135-145); Total Protein 7.0 g/dL (6.5-8.0); Triglycerides 189 mg/dL (<150)
[2025-04-28 11:47] LABS: Free T4 (Free Thyroxine) 0.80 ng/dL (0.71-1.85); Thyroid Stimulating Hormone 1.43 uIU/mL (0.32-4.0)
[2025-04-28 12:12] LABS: Folate 6.6 ng/mL (> or = 4.0); Vitamin B12 1026 pg/mL (200-900)
== END 2025-04-28 10:00 | disposition home or self-care (01) ==
LOC: HO.LAB 09:59
PROVIDERS: PCP Internal Medicine; Visit Provider Internal Medicine
DX: E78.00 Pure hypercholesterolemia, unspecified (principal); Z13.21 Encounter for screening for nutritional disorder; Z13.1 Encounter for screening for diabetes mellitus
CPT/HCPCS: 36415; 80053; 80061; 81001; 82306; 82607; 82746; 83036; 84439; 84443; 85025

== ENCOUNTER 2025-05-05 09:35 | Outpatient (AMB) | payer OTHER, SELFPAY ==
[2025-05-05 09:42] VITALS: BP 148/70; PULSE 78; O2SAT 97; BMI 33.3
--- NOTE | 2025-05-05 09:42 | MHC.PC.OV ---
Vital Signs 05/05/25 09:42 Height 5 ft 3 in Weight 188 lb BMI 33.3 BP 148/70 H Blood Pressure Location Lt brachial Position Sitting Pulse 78 Pulse Source Pulse Oximeter Pulse Oximetry (%) 97 Oxygen Delivery Method Room Air Intake Visit Reasons: HTN , Knee OA Allergies Penicillins (PENICILLINS) Allergy (Intermediate, Verified 05/05/25 09:42) RASH,ITCHING hydrochlorothiazide Adverse Reaction (Intermediate, Verified 05/05/25 09:42) dizzy Medication List - Last Reconciled 05/05/25 by Fiorella Coronel MD acetaminophen ER (Tylenol Arthritis Pain) 650 mg PO BID PRN alendronate 70 mg PO QWEEK amitriptyline 50 mg PO BEDTIME cholecalciferol (vitamin D3) 125 mcg PO DAILY citalopram 20 mg PO DAILY clonazepam 0.5 mg PO DAILY PRN compress.stocking,knee,reg,lrg As directed cyanocobalamin (vitamin B-12) 1,000 mcg PO DAILY 90 days diclofenac sodium 1% (Voltaren Arthritis Pain) 4 grams topical QID fluticasone propionate 50 mcg/actuation (Flonase Allergy Relief) 1 spray intranasal DAILY lidocain-me.sstiiip-sqwb-lxeki 4-20-0.0375-10 % (Transderm-iQ) 1 ea topical lisinopril 30 mg PO DAILY loratadine 10 mg PO DAILY 90 days [Poise PAds [id number] As directed] [Reclining Chair As directed] rosuvastatin 20 mg PO DAILY Tobacco use date assessed: 10/08/24 Fall risk assessment: No Falls in past year Last assessed Fall Risk: 05/05/25 Dental Screening Dental Screen Date: 10/08/24 [facility] Medical History (Updated 05/05/25 @ 09:50 by Fiorella Coronel MD) Nephrolithiasis Knee pain, right Rotator cuff arthropathy of both shoulders Shoulder subluxation, right Subconjunctival hemorrhage of right eye Annual physical exam Eczematous dermatitis Bilateral hand numbness Urinary incontinence Shoulder pain, bilateral Osteoarthritis, knee Cataract Carpal tunnel syndrome Gout Anxiety and depression GERD (gastroesophageal reflux disease) Hypertension Hypercholesterolemia History of renal calculi Osteoporosis Migraine Impaired fasting glucose Peripheral vascular disease Obesity (BMI 30-39.9) Fibromyalgia Surgical History S/P excision of lipoma (10/01/23) Hx of blepharoplasty H/O colonoscopy History of shoulder surgery (12/12/22) History of cataract surgery History of carpal tunnel release Family History Father CVD (cardiovascular disease) Stroke Mother Diabetes Hypertension Maternal Aunt Breast cancer Brother Intestinal cancer Social History Housing: Apartment Alcohol intake: never Patient Tobacco Use Status: Never used Tobacco Tobacco use type: Cigarette e-Cigarette/Vaping Use: Never Used Second Hand Smoke Exposure: No service: No Current occupational status: disabled Current occupation: Rt handed Cognitive needs: No Hearing needs: No Vision needs: Yes Questionnaire PHQ-9 Over the last 2 weeks, how often have you been bothered by any of the following problems? 1. Little interest or pleasure in doing things: several days 2. Feeling down, depressed, or hopeless: several days 3. Trouble falling or staying asleep, or sleeping too much: more than half the days 4. Feeling tired or having little energy: more than half the days 5. Poor appetite or overeating: not at all 6. Feeling bad about yourself - or that you are a failure or have let yourself or your family down: not at all 7. Trouble concentrating on things, such as reading the newspaper or watching television: more than half the days 8. Moving or speaking so slowly that other people could have noticed. Or the opposite - being so fidgety or restless that you have been moving around a lot more than usual: not at all 9. Thoughts that you would be better off or of hurting yourself in some way: not at all Total score: 8 Depression Screening Interpretation: Positive Depression Screening Done: Yes 72559 - PHQ-9 Billing: Yes Source: Developed by Drs. Christopher Lynne, Mera Kebede, Ron Flores and colleagues, with an educational wicho from [employer]. Thrive Questionnaire Date Thrive assessed: 10/08/24 I am a: Patient What is your living situation today?: I have a steady place to live Within the past 12 months, did the food you bought not last and you didn't have the money to get more?: Never true Within the past 12 months, did you worry whether your food would run out before you got money to buy more?: Never true Do you have trouble paying for medicines?: No Do you have trouble getting transportation to medical appointments?: No Do you have trouble paying your heating and electricity bill?: No Do you have trouble taking care of your child, family member or friend?: No Do you have trouble with day-to-day activities such as bathing, preparing meals, shopping, managing finances, etc.?: Yes Are you currently unemployed and looking for a job?: No Are you interested in more education?: No Please select the resources that you would like help with: None Currently or been in a relationship where the following occur: No concerns reported THRIVE Score: 0 AUDIT C Alcohol Use Questionnaire (AUDIT-C) 1. How often do you have a drink containing alcohol?: Never Total Score: 0 WAGNER-7 AMB Questionnaire WAGNER-7 Date WAGNER - 7 assessed: 10/08/24 Source: Developed by Drs. Christopher Lynne, Mera Kebede, Ron Flores and colleagues, with an educational wicho from [employer]. Physical exam (Primary Care) Vital Signs: Last Vital Signs Pulse 78 05/05/25 09:42 BP 148/70 H 05/05/25 09:42 Pulse Ox 97 05/05/25 09:42 Oxygen Delivery Method Room Air 05/05/25 09:42 BMI result Body Mass Index 33.3 Tobacco/Smoking Status: Tobacco use Status Tobacco use date assessed 10/08/24 05/05/25 09:47 Patient Tobacco Use Status Never used Tobacco 05/05/25 09:47 Tobacco use type Cigarette 05/05/25 09:47 e-Cigarette/Vaping Use Never Used 05/05/25 09:47 PHQ-9: PHQ-9 Score PHQ-9: Total score 8 05/05/25 09:52 Depression Screening Interpretation: Positive Thrive Assessment: Date of Thrive Assessment Date Thrive assessed 10/08/24 05/05/25 09:47 Currently or been in a relationship where the following occur: No concerns reported Const General: alert; No acute distress Eyes Conjunctivae: conjunctivae normal Resp Auscultation: clear to auscultation bilaterally Cardio Rate: regular rate Rhythm: regular rhythm GI Inspection: Yes normal to inspection Extrem General: Yes normal to inspection and No edema Coding Level of Care Code Est Pt Level 4 (59184) Complex EM visit Add On G2211 Diagnoses Primary hypertension I10 Hypertension type: primary hypertension Hypercholesterolemia E78.00 Impaired fasting glucose R73.01 Obesity (BMI 30-39.9) E66.9 Gastroesophageal reflux disease without esophagitis K21.9 Esophagitis presence: without esophagitis Microscopic hematuria R31.29 Migraine G43.909 Generalized anxiety disorder F41.1 Osteoarthritis, knee M17.10 Additional Codes PHQ-9 - 25925 - PHQ-9 Billing: Yes ([id number]) Assessment & Plan Assessment & Plan (1) Hypertension: Code(s): I10 - Essential (primary) hypertension Category: Medical Qualifiers: Hypertension type: primary hypertension Qualified Code(s): I10 - Essential (primary) hypertension Plan: Continue with blood pressure medication. Decrease salt intake and exercise patient on lisinopril 30 mg once a day (2) Hypercholesterolemia: Code(s): E78.00 - Pure hypercholesterolemia, unspecified Category: Medical Plan: Avoid fried foods, chicken skin, eggs, butter margarine, pastries and meat. Be it pork or beef they have a lot of cholesterol LDL goal of less than 130 and triglyceride of less than 150 patient on rosuvastatin 20 mg once a day (3) Impaired fasting glucose: Code(s): R73.01 - Impaired fasting glucose Category: Medical Plan: Decrease the amount of carbohydrate intake, pasta, bread, rice and potatoes are all sugar and that is aside from all the sweet stuff, remember that fruits are good but they are Sweet also. (4) Obesity (BMI 30-39.9): Code(s): E66.9 - Obesity, unspecified Category: Medical Plan: Diet and exercise (5) GERD (gastroesophageal reflux disease): Code(s): K21.9 - Gastro-esophageal reflux disease without esophagitis Category: Medical Qualifiers: Esophagitis presence: without esophagitis Qualified Code(s): K21.9 - Gastro-esophageal reflux disease without esophagitis Plan: Avoid the foods that causes that usually spicy foods, tomato products, juices, coffee, soda and foods that your sensitive to. After eating do not lie down, allow 3-4 hours before in lie down. And keep the head of bed above 30 degrees to avoid the acid from going up. (6) Microscopic hematuria: Code(s): R31.29 - Other microscopic hematuria Category: Medical Plan: Patient continues to follow-up with urology and urine cytology requested (7) Migraine: Code(s): G43.909 - Migraine, unspecified, not intractable, without status migrainosus Category: Medical Plan: Patient is advised to eat healthy, keep well hydrated, keep active and have adequate sleep. (8) Generalized anxiety disorder: Comment: [facility] Code(s): F41.1 - Generalized anxiety disorder Category: Medical Plan: Continue with amitriptyline, citalopram and clonazepam as needed (9) Osteoarthritis, knee: Comment: Right knee injection [facility] Code(s): M17.10 - Unilateral primary osteoarthritis, unspecified knee Category: Medical Plan History of Present Illness The patient is a 80-year-old female presenting for a follow-up visit to manage multiple chronic conditions and to discuss preventative care measures. The patient has a history of impaired glucose tolerance, with recent blood work showing a fasting blood sugar of 118 mg/dL and a hemoglobin A1c of 6.2%. Her blood sugar levels have been gradually increasing over the past year, with previous readings of 113 mg/dL, 108 mg/dL, and 105 mg/dL. The patient is advised to manage her blood sugar through diet and exercise to prevent progression to diabetes. The patient has hypercholesterolemia, with triglycerides elevated at 189 mg/dL, while LDL cholesterol is at 87 mg/dL. The patient is on rosuvastatin 20 mg daily to manage her cholesterol levels, with a goal to reduce triglycerides to below 150 mg/dL. The patient has a history of hypertension, currently managed with lisinopril 30 mg daily. Her blood pressure has improved from the 160s to the 140s since July, but remains slightly elevated at 140/80 mmHg. The plan is to increase lisinopril to 40 mg to further control her blood pressure. The patient has a history of migraines, GERD, nephrolithiasis, and generalized anxiety disorder, all of which are being managed with appropriate medications. She continues to take amitriptyline, citalopram, and clonazepam as needed for anxiety and migraine management. The patient has osteoarthritis of the knee, which has been confirmed by x-ray. She has tried diclofenac lotion without significant relief and is advised to use Tylenol 1000 mg three times a day for pain management. The patient is not interested in injections or surgery at this time. Preventative care measures include a colonoscopy in September 2023, a mammogram in July 2024, and a bone density test in June 2023. She has received her shingles, tetanus, and pneumonia vaccinations. The patient is advised to continue surveillance with ultrasound and urine cytology due to hematuria. Health Maintenance - Colonoscopy in September 2023 - Mammogram in July 2024 - Bone density test in June 2023 - Shingles vaccination completed - Tetanus vaccination up to date - Pneumonia vaccination completed - Surveillance with ultrasound and urine cytology for hematuria Social History - Diet: Patient has been attending cookouts, which may contribute to elevated blood sugar levels. Review of Systems - Cardiovascular: Denies chest pain, orthopnea, or syncope. - Genitourinary: Denies dysuria or burning sensation during urination. Physical Exam - Cardiovascular: Blood pressure 140/80 mmHg Results - Labs: Fasting blood sugar 118 mg/dL, hemoglobin A1c 6.2%, triglycerides 189 mg/dL, LDL cholesterol 87 mg/dL - Imaging: X-ray confirmed osteoarthritis of the knee Plan The patient will continue to manage her impaired glucose tolerance through dietary modifications and increased physical activity to prevent progression to diabetes. Her hypercholesterolemia will be managed with rosuvastatin 20 mg daily, aiming to reduce triglycerides to below 150 mg/dL. For hypertension, the patient's lisinopril dosage will be increased from 30 mg to 40 mg to achieve better blood pressure control. The patient will continue her current medications for migraines, GERD, nephrolithiasis, and generalized anxiety disorder, including amitriptyline, citalopram, and clonazepam as needed. For osteoarthritis of the knee, the patient is advised to use Tylenol 1000 mg three times a day for pain management, as she is not interested in injections or surgery at this time. Preventative care measures will include continued surveillance with ultrasound and urine cytology due to hematuria, and adherence to scheduled screenings and vaccinations. Patient was informed and verbally consented to the use of an ambient scribe for clinic note documentation during this visit. Discussion Notes During the visit, I discussed with the patient the importance of managing her blood sugar levels through diet and exercise to prevent diabetes. We also reviewed her cholesterol management plan, emphasizing the goal of reducing triglycerides to below 150 mg/dL with rosuvastatin. I explained the need to increase her lisinopril dosage to better control her blood pressure, and we discussed her current medication regimen for migraines, GERD, nephrolithiasis, and anxiety. For her osteoarthritis, we talked about using Tylenol for pain management and her decision to avoid injections or surgery. We reviewed her preventative care measures, including the need for continued surveillance with ultrasound and urine cytology due to hematuria, and the importance of adhering to her screening and vaccination schedule. Patient Instructions - Follow a healthy diet and increase physical activity to manage blood sugar levels. - Continue taking rosuvastatin 20 mg daily to manage cholesterol levels. - Increase lisinopril dosage to 40 mg daily to better control blood pressure. - Use Tylenol 1000 mg three times a day for knee pain management. - Continue with current medications for migraines, GERD, nephrolithiasis, and anxiety as prescribed. - Adhere to scheduled screenings and vaccinations, including ultrasound and urine cytology for hematuria. Orders: Orders Comprehensive Met. Panel 3 Months R73.01 - Impaired fasting glucose Hemoglobin A1c 3 Months R73.01 - Impaired fasting glucose Lipid Panel 3 Months E78.00 - Pure hypercholesterolemia, unspecified, R73.01 - Impaired fasting glucose Medications: Changed From lisinopril 30 mg PO DAILY 30 tabs 3RF To lisinopril 40 mg PO DAILY 30 tabs 3RF
--- OUTSIDE RECORDS SUMMARY | 2025-05-05 10:40 | XMS_ITS | Patient Health Record ---
Author Organization [facility] Address [address] [place] [address] Care Team Providers Care Business Solutions Consultant Name Role Phone Po Fiorella [place] Primary [...] Problem Status W/U Status Risk Notes Problem [id number] Colon cancer screening (Z12.11) Active confirmed Problem [id number] Family history of colon cancer (Z80.0) Active confirmed Plan Of Treatment Future Test Test Name Order Date COLONOSCOPY 11/01/2017 COLONOSCOPY 06/18/2023 Insurance Providers Payer Name Payer Address Payer Phone Subscriber Number Group Number Insured Name Patient Relationship to Insured Coverage Start Date Coverage End Date [facility] [address] Attn Claims SVETLANA Cavazos [id number] JAY MONTIEL Self - patient is the insured MED[facility] [address] [place] [address] [phone] [id number] JAY MONTIEL Self - patient is the insured Medical (General) History Medical History History ICD Code Gastroesophageal reflux disease Hypertension Nephrolithiasis Anxiety/depression Fibromyalgia Elevated cholesterol Migraine headaches Colonoscopy 03/04, tubular adenoma, five- year followup Surgical History Surgery Date(Month/Year) carpal tunnel release bilateral cataracts blepharoplasty shoulder replacement right 12/12/22
--- OUTSIDE RECORDS SUMMARY | 2025-05-05 10:41 | XMS_ITS | Clinical Summary ---
Author Organization [facility] Address [address] [place] [id number] Phone Care Team Providers Care B2B Sales Professional Name Role Phone Physician, No Pcp Primary [...] Name Administration Dates Next Due Hepatitis B (Kcypqve-H-Rlykz , Recombivax HB-Adult) 19yo and older 10/30/2016,05/29/2016,04/26/2016 Surgical History Surgery Date Site/Laterality Comments CATARACT EXTRACTION PROCEDURE: HISTORICAL CATARACT REMOVAL OTHER SURGICAL HISTORY PROCEDURE: ND UNLISTED PROCEDURE EXTRAOCULAR MUSCLE OTHER SURGICAL HISTORY PROCEDURE: ARTHROSCOPY PROCEDURE NEC CARPAL TUNNEL RELEASE PROCEDURE: ND NEUROPLASTY &/TRANSPOS MEDIAN NRV CARPAL TUNNE Medical History Medical History Date Comments Fibromyalgia DX:Fibromyalgia Elevated cholesterol DX:Elevated cholesterol Hypertension DX:Hypertension Peripheral vascular disease, unspecified (CMS/HCC V24) DX:Peripheral vascular disea se, unspecified ([facility]) Depression DX:Depression Anxiety state DX:Anxiety state Generalized [...] ID:[id number] Group ID:[id number] Type:Not on file Address: [facility] [address] [address] Care Teams B2B Sales Professional Relationship Specialty Start Date End Date Physician, No Pcp PCP - General 10/21/24
== END 2025-05-05 10:10 | disposition home or self-care (01) ==
LOC: HO.HMCH 09:35
PROVIDERS: PCP Internal Medicine; Visit Provider Internal Medicine
DX: I10 Essential (primary) hypertension (principal); E78.00 Pure hypercholesterolemia, unspecified; E66.9 Obesity, unspecified; Z68.33 Body mass index [BMI] 33.0-33.9, adult; R73.01 Impaired fasting glucose; K21.9 Gastro-esophageal reflux disease without esophagitis; R31.29 Other microscopic hematuria; G43.909 Migraine, unspecified, not intractable, without status migrainosus; F41.1 Generalized anxiety disorder; M17.11 Unilateral primary osteoarthritis, right knee

== ENCOUNTER → 2025-05-05 09:35 | Outpatient (BNVA) | payer OTHER, SELFPAY | PROVIDERS: PCP Internal Medicine; Visit Provider Internal Medicine | DX: M17.11 Unilateral primary osteoarthritis, right knee (principal); I10 Essential (primary) hypertension; E78.00 Pure hypercholesterolemia, unspecified; R73.01 Impaired fasting glucose; E66.9 Obesity, unspecified; K21.9 Gastro-esophageal reflux disease without esophagitis; R31.29 Other microscopic hematuria; G43.909 Migraine, unspecified, not intractable, without status migrainosus; F41.1 Generalized anxiety disorder; Z68.33 Body mass index [BMI] 33.0-33.9, adult | CPT/HCPCS: 96127; 99212 ==

== ENCOUNTER 2025-05-06 10:06 | Outpatient (AMB) | payer OTHER, SELFPAY ==
--- NOTE | 2025-05-06 10:08 | MHC.OFFVIS ---
Vital Signs 05/06/25 10:09 Height 5 ft 3 in Intake Visit Reasons: 6M Migrane Occupational Therapy Manager Required: Yes Occupational Therapy Manager Services: Occupational Therapy Manager Offered & Declined (Daughter to translate) Accompanied by: Daughter Allergies Penicillins (PENICILLINS) Allergy (Intermediate, Verified 05/06/25 10:14) RASH,ITCHING hydrochlorothiazide Adverse Reaction (Intermediate, Verified 05/06/25 10:14) dizzy Medication List - Last Reconciled 05/06/25 by Alissa Humphreys CNP acetaminophen ER (Tylenol Arthritis Pain) 650 mg PO BID PRN alendronate 70 mg PO QWEEK amitriptyline 50 mg PO BEDTIME cholecalciferol (vitamin D3) 125 mcg PO DAILY citalopram 20 mg PO DAILY clonazepam 0.5 mg PO DAILY PRN compress.stocking,knee,reg,lrg As directed cyanocobalamin (vitamin B-12) 1,000 mcg PO DAILY 90 days diclofenac sodium 1% (Voltaren Arthritis Pain) 4 grams topical QID fluticasone propionate 50 mcg/actuation (Flonase Allergy Relief) 1 spray intranasal DAILY lidocain-me.qowpzoq-lrht-ebdiq 4-20-0.0375-10 % (Transderm-iQ) 1 ea topical lisinopril 40 mg PO DAILY loratadine 10 mg PO DAILY 90 days [Poise PAds [id number] As directed] [Reclining Chair As directed] rosuvastatin 20 mg PO DAILY HPI Comments Details: 80-year-old woman with anxiety/panic disorder, fibromyalgia and migraine. She was doing okay. Headaches were okay with amitriptyline. No medication side effects. Sleep was okay. Mood was okay. [facility] Medical History (Updated 05/06/25 @ 10:13 by Alissa Humphreys CNP) Nephrolithiasis Knee pain, right Rotator cuff arthropathy of both shoulders Shoulder subluxation, right Subconjunctival hemorrhage of right eye Annual physical exam Eczematous dermatitis Bilateral hand numbness Urinary incontinence Shoulder pain, bilateral Osteoarthritis, knee Cataract Carpal tunnel syndrome Gout Anxiety and depression GERD (gastroesophageal reflux disease) Hypertension Hypercholesterolemia History of renal calculi Osteoporosis Migraine Impaired fasting glucose Peripheral vascular disease Obesity (BMI 30-39.9) Fibromyalgia Surgical History S/P excision of lipoma (10/01/23) Hx of blepharoplasty H/O colonoscopy History of shoulder surgery (12/12/22) History of cataract surgery History of carpal tunnel release Family History (Updated 05/06/25 @ 10:14 by Alissa Humphreys [facility]) Father CVD (cardiovascular disease) Stroke Mother Diabetes Hypertension Maternal Aunt Breast cancer Brother Intestinal cancer Daughter Headache Social History Housing: Apartment Alcohol intake: never Patient Tobacco Use Status: Never used Tobacco Tobacco use type: Cigarette e-Cigarette/Vaping Use: Never Used Second Hand Smoke Exposure: No service: No Current occupational status: disabled Current occupation: Rt handed Cognitive needs: No Hearing needs: No Vision needs: Yes Review of Systems Const Denies chills, Denies daytime sleepiness, Denies difficulty sleeping, Denies fatigue, Denies fever(s), Denies frequent falls, Reports headache(s), Denies increased appetite, Denies poor appetite, Denies snoring, Denies weakness, Denies weight gain and Denies weight loss Eyes Denies loss of vision ENT Denies vertigo, Denies dizziness and Reports headache(s) Card Denies chest pain at rest, Denies chest pain with activity, Denies syncope, Denies leg edema and Denies palpitations Resp Denies snoring GI Denies constipation, Denies heartburn, Denies diarrhea and Denies nausea Denies urinary frequency, Denies urinary incontinence and Denies urinary urgency Musc Denies abnormal gait, Denies numbness and Denies tingling Skin/Breast Denies dry skin and Denies rash Neuro Denies abnormal gait, Denies vertigo, Denies dizziness, Denies syncope, Denies frequent falls, Reports headache(s), Denies lack of coordination, Denies loss of vision, Denies memory loss, Denies numbness, Denies restless legs, Denies seizure-like activity, Denies tingling, Denies paresthesias, Denies tremor(s) and Denies weakness Psych Denies anxiety, Denies depression, Denies auditory hallucinations, Denies memory loss, Denies visual hallucinations and Denies suicidal ideation Endo Denies fatigue and Denies palpitations Physical Exam Const Other: General Appearance:? normal, in no acute distress. Skin:? no rashes, no significant birthmarks. Heart:? S1, S2 normal, no murmurs. Lungs:? clear anteriorly and posteriorly. Extremities:? no edema. Psych:? alert, oriented, cognitive function intact, cooperative with exam. Neuro Other: Mental Status:?Normal attention, orientation, memory and affect.? Cranial Nerves:?Pupils are equal, round and reactive to light. External occular muscles are intact. Visual rios are full. Face is symmetrical. Facial sensations are normal. Tongue is midline. Palate elevates symmetrically. Shoulder shrugging is normal. Hearing to bedside conversation is normal. Sensory Exam:?....? Coordination:?No ataxia,?no titubation.? Gait Exam: Within normal limits. Extrapyramidal System:?No tremor, rigidity with normal facial expressions.? Pronator Drift:?Not present.? Involuntary Movements:?No tremors seen.? Speech:?Normal.? Results Reviewed Results Reviewed: [place] brain [facility] [place]: ok Assessment & Plan Assessment & Plan (1) Migraine: Code(s): G43.909 - Migraine, unspecified, not intractable, without status migrainosus Category: Medical Qualifiers: Migraine type: unspecified Status migrainosus presence: without status migrainosus Intractability: not intractable Qualified Code(s): G43.909 - Migraine, unspecified, not intractable, without status migrainosus Plan: Continue amitriptyline 50mg 1 tablet at bedtime. (2) Fibromyalgia: Code(s): M79.7 - Fibromyalgia Category: Medical Plan . Medications: Changed From amitriptyline 50 mg PO BEDTIME To amitriptyline 50 mg PO BEDTIME 90 tabs 1RF 90 days Coding Level of Care Code Est Pt Level 3 (28922) Diagnoses Migraine without status migrainosus, not intractable, unspecified migraine type G43.909 Migraine type: unspecified Status migrainosus presence: without status migrainosus Intractability: not intractable Fibromyalgia M79.7
--- OUTSIDE RECORDS SUMMARY | 2025-05-06 11:14 | XMS_ITS | Patient Health Record ---
Author Organization [facility] Address [address] [place] [address] Care Team Providers Care White Sugar Pan Tank Operator Name Role Phone [place] Primary Care Provider Edwin Yi Jr Unavailable [phone] Allergies Allergen (clinical drug ingredient) Drug/Non Drug [...] Problem Status W/U Status Risk Notes Problem [id number] Colon cancer screening (Z12.11) Active confirmed Problem [id number] Family history of colon cancer (Z80.0) Active confirmed Plan Of Treatment Future Test Test Name Order Date COLONOSCOPY 11/01/2017 COLONOSCOPY 06/18/2023 Insurance Providers Payer Name Payer Address Payer Phone Subscriber Number Group Number Insured Name Patient Relationship to Insured Coverage Start Date Coverage End Date [facility] [address] Attn Claims SVETLANA Cavazos [id number] JAY MONTIEL Self - patient is the insured [facility] [address] [place] [address] [phone] [id number] JAY MONTIEL Self - patient is the insured Medical (General) History Medical History History ICD Code Gastroesophageal reflux disease Hypertension Nephrolithiasis Anxiety/depression Fibromyalgia Elevated cholesterol Migraine headaches Colonoscopy 03/04, tubular adenoma, five- year followup Surgical History Surgery Date(Month/Year) carpal tunnel release bilateral cataracts blepharoplasty shoulder replacement right 12/12/22
--- OUTSIDE RECORDS SUMMARY | 2025-05-06 11:14 | XMS_ITS | Clinical Summary ---
Author Organization [facility] Address [address] [place] [phone] Phone Care Team Providers Care Flame Annealing Machine Operator Name Role Phone Physician, No Pcp Primary [...] Name Administration Dates Next Due Hepatitis B ([id number] , Recombivax HB-Adult) 19yo and older 10/30/2016,05/29/2016,04/26/2016 Surgical History Surgery Date Site/Laterality Comments CATARACT EXTRACTION PROCEDURE: HISTORICAL CATARACT REMOVAL OTHER SURGICAL HISTORY PROCEDURE: [place] UNLISTED PROCEDURE EXTRAOCULAR MUSCLE OTHER SURGICAL HISTORY PROCEDURE: ARTHROSCOPY PROCEDURE NEC CARPAL TUNNEL RELEASE PROCEDURE: [place] NEUROPLASTY &/TRANSPOS MEDIAN NRV CARPAL TUNNE Medical History Medical History Date Comments Fibromyalgia DX:Fibromyalgia Elevated cholesterol DX:Elevated cholesterol Hypertension DX:Hypertension Peripheral vascular disease, unspecified (CMS/HCC V24) DX:Peripheral vascular disea se, unspecified ([facility]) Depression DX:Depression Anxiety state DX:Anxiety [...] ID:[id number] Group ID:[id number] Type:Not on file Address: [facility] [address] [place] [address] Care Teams Flame Annealing Machine Operator Relationship Specialty Start Date End Date Physician, No Pcp PCP - General 10/21/24
== END 2025-05-06 10:26 | disposition home or self-care (01) ==
LOC: HO.HSM 10:07
PROVIDERS: PCP Internal Medicine; Referring Provider Internal Medicine; Visit Provider Registered Nurse
DX: G43.909 Migraine, unspecified, not intractable, without status migrainosus (principal); M79.7 Fibromyalgia
CPT/HCPCS: 99213

== ENCOUNTER → 2025-05-06 10:06 | Outpatient (BNVA) | payer OTHER, SELFPAY | PROVIDERS: PCP Internal Medicine; Referring Provider Internal Medicine; Visit Provider Registered Nurse | DX: G43.909 Migraine, unspecified, not intractable, without status migrainosus (principal); M79.7 Fibromyalgia | CPT/HCPCS: 99212 ==